=== PATIENT | female | born 1960 | race Caucasian/White ===

== ENCOUNTER → 2017-10-19 10:23 | Outpatient (CLI) | payer OTHER, SELFPAY ==
--- NOTE | 2017-10-19 10:29 | MM_ITS ---
MM Dig screening mamm BI w/CAD CAD Screening COMPARISON: Digital mammograms 05/07/2014 and 10/14/2016 INDICATION: There is a history of breast cancer in patient's mother diagnosed after menopause. TECHNIQUE: Standard CC and MLO images were obtained. R2 CAD reviewed. FINDINGS: Prominent heterogenic fibroglandular densities are seen in both breast somewhat lessening the sensitivity of mammography. Again noted is a stable benign-appearing nodular density outer quadrant of the right breast mid-breast in location. There is a benign-appearing calcification left breast. There is no suspicious lesion and there are no suspicious microcalcifications. IMPRESSION: Stable exam with no suspicious lesion seen recommend yearly follow-up BI-RADS Category: 2 Benign Finding(s) RECOMMENDED FOLLOW-UP: 1YR - 1 YEAR FOLLOW-UP (A letter has been sent to the patient regarding results of the study.)
--- NOTE | 2017-10-19 10:31 | CT_ITS ---
EXAM: CT LUNG LOW DOSE WO CONTRAST COMPARISON: None HISTORY: 57-year-old female asymptomatic with greater than 30 pack-year history ORDERING PHYSICIAN: Derrek Cevallos MD PATIENT AGE: 57 years TECHNIQUE: The exam was performed on a GE Light Speed [address] scanner using 3.95 mGy CTDI. A low dose helical CT CHEST was performed on a multi-detector scanner The LDCT was performed in a facility that meets the criteria for the screening program. Data regarding this exam was submitted to ACR which is an approved registry. The order for this exam indicates that it came as a result of a lung cancer screening counseling shard decision-making visit that included all the elements required of such a visit including smoking cessation. The radiologist interpreting this exam meets the [facility] criteria for the LDCT lung cancer screening program. The exam is reported using the Lung-RADS classification scale and reported to the ACR registry. NOTE: This study was performed for the specific purposes of lung cancer screening and is not an alternative to diagnostic chest CT. RADIATION DOSE: CTDI vol(CT dose Index-volume) = 2.95mG DLP (Dose Length Product) = 106.00 mGcm FINDINGS: There is a parenchymal opacity in the upper aspect of the right middle lobe measuring approximate 14 mm with peripheral groundglass density and may be due to an area of parenchymal fibrosis. Atelectatic or fibrotic changes are present in the right middle lobe along the fissure. Scattered calcified granulomas. Centrilobular emphysematous changes are present. No effusions or infiltrates. Normal heart size. IMPRESSION: 1. Lung RADS Category: 4A, mildly suspicious. 14 mm parenchymal opacity right upper lobe which may be due to fibrotic change. Cannot exclude developing nodule 2. Other findings: Centrilobular emphysema. Old granulomatous disease. RECOMMENDATIONS: [address] (not LDCT) without and with contrast.
== END ==
PROVIDERS: Family Provider Physician Assistant; PCP Family Medicine; Visit Provider Nurse Practitioner Obstetrics & Gynecology
DX: Z12.2 Encounter for screening for malignant neoplasm of respiratory organs (principal); Z87.891 Personal history of nicotine dependence; Z12.31 Encounter for screening mammogram for malignant neoplasm of breast
CPT/HCPCS: 77067

== ENCOUNTER → 2018-01-18 12:14 | Outpatient (CLI) | payer OTHER, SELFPAY ==
[2018-01-18 13:56] LABS: Blood Urea Nitrogen 12 mg/dL (7-18); Creatinine,Serum 0.72 mg/dL (0.55-1.02); Estimated Glomerular Filt Rate 83 ml/min (>60); GFR (African American) 101 ML/MIN (>60)
== END ==
PROVIDERS: Visit Provider Family Medicine
DX: R91.1 Solitary pulmonary nodule (principal)
CPT/HCPCS: 36415; 82565; 84520

== ENCOUNTER → 2018-01-21 09:02 | Outpatient (CLI) | payer OTHER, SELFPAY ==
--- NOTE | 2018-01-21 09:10 | CT_ITS ---
CT chest wo/w con HISTORY: Follow-up lung nodule, solitary pulmonary nodule, tobacco use, follow-up abnormal chest CT ITS.REASON: LUNG NODULE ORDERING PHYSICIAN: Mark Duarte MD PATIENT AGE: 57 years Technique: Axial images obtained. Sagittal and coronal reformatted images are also generated and reviewed. All CT scans at the facility use one or more dose reduction, viz: automated exposure control; ma/kV adjustment per patient size (including targeted exams where dose is matched to indication; i.e. head); or iterative reconstruction technique. CONTRAST: 75ml Isovue 370 I.V. COMPARISON: 10/19/2017 FINDINGS: No mediastinal or hilar mass. No evidence of aortic aneurysm or central pulmonary embolus. Normal heart size without evidence of pericardial effusion. There are few scattered small nodes within the mediastinum nonspecific and unchanged. Interlobular is edematous change with scattered areas of fibrosis are once again noted. The previously noted opacity in the right middle lobe is now less prominent with only a 4 mm nodular density noted at this region. No significant enhancement. The surrounding groundglass density has resolved. No new nodules are evident. Calcified granulomas are present in the left lower lobe. Liver margin is somewhat lobular in nature. There are some small varices noted in the left periaortic region of the upper abdomen. Developing cirrhosis is considered. IMPRESSION: 1. Decrease in size in the opacity in the right middle lobe with only a 4 mm residual nodule noted in this region. 2. Centrilobular emphysema with chronic obstructive pulmonary disease and old granulomatous disease. 3. Possible cirrhosis Recommendations: Resume screening LDCT September 2018
== END ==
PROVIDERS: Family Provider Physician Assistant; PCP Family Medicine; Visit Provider Family Medicine
DX: R91.1 Solitary pulmonary nodule (principal)
CPT/HCPCS: 71270; Q9967

== ENCOUNTER → 2018-07-25 09:24 | Outpatient (POV) | payer OTHER, SELFPAY ==
[2018-07-25 09:45] VITALS: BP 151/99; PULSE 78; RESP 18; O2SAT 95
--- NOTE | 2018-07-25 10:26 | HMH.PMCON ---
Assessment and Plan (1) Cervical pain (neck) Current visit: Yes Status: Chronic Category: Medical Code(s): M54.2 - Cervicalgia (2) Lower back pain Current visit: Yes Status: Chronic Qualifiers: Chronicity: chronic Category: Medical Code(s): M54.5 - Low back pain - Assessment and plan all Dx Assessment and Plan for all problems:: Patient states that she does not want medication from our office she is wanting to continue with Dr. Duarte. Patient states that she would like my recommendations as far as her treatment plan. I encouraged her to get some diagnostic imaging of her neck and her lumbar spine. Patient is asking us to order her a cervical MRI. I also encouraged her to do some physical therapy as well as potentially weaning off some of her chronic medications. I believe that she would be a good candidate for naloxone at this time. I discussed with the patient she is welcome to return anytime. This note was dictated using voice recognition software and may contain errors or omissions HPI - Data of Consult Consult date: 07/25/18 Requesting Physician: Eloina Aviles APRN Primary Care Provider: Mark Duarte MD - Consult Narrative Reason for consult: Continuation of narcotic medications History of present illness: Ms. Bennett is a 58 year old female who presents today for consultation. Patient states that she is here because Dr. Duarte needs permission to continue her medications. Patient is currently on a morphine equivalent of 210. Patient insurance sent a letter stating due to the her high morphine equivalent exceeding 120 morphine equivalents that she needs reassessment of her opioid therapy along with diagnosis and treatment goals. Patient also was determined to be a potential candidate for naloxone. Patient states she has been to several pain clinics in the past including Dr. Engel and Dr. Cristina. Patient states she received injections at these clinics. Patient states these do not help her. Patient states she has never been to full therapy for her lower back pain. Patient last MRI of her low back was in 2001. Patient states she is continual headaches. Patient states she was seen by a neurologist however she did not want to move forward with Botox injections. Patient states she has had pain since 1998 rating it a 5 out of 10 today. Patient has tried a chiropractor in the past. Patient's tried and failed Lortab, morphine, Topamax, gabapentin, OxyContin patient is currently on xtampza that extended release 27 mg 4 times a day and Ellinger 7.5 mg for breakthrough pain. CC: Eloina Aviles APRN [facility] History I have reviewed the patient's past medical history: Yes Medical History: Reports:: Chronic Obstructive Pulmonary Disease (COPD) Denies:: Anxiety, Depression, Hyperlipidemia, Hypertension, Seizures Other Medical History: Reports: Arthritis Laterality Cases: Bilateral: Tonsillectomy Other Surgeries: Yes: Hysterectomy-Partial Amputation: No Fractures: No - *Social History Smoking Status: Never smoker Alcohol Intake: never Alcohol Intake Frequency:: holidays/special occasions only Substance Use Type: denies use Occupational Status: employed Housing: house - Psychiatric History Expresses thoughts of harming self/others: None Suicide Plan Description: No Plan Pschychiatric History:: Denies:: Anxiety, Depression *Family Hx:: Cancer, Heart Attack Review of Systems - Review of Systems ROS General: no recent weight change, no fever, no sleep disturbances Respiratory: no cough, no shortness of air, no recurring pulmonary infections Cardiovascular/Peripheral Vascular: No chest pain, No palpitations, no edema, no shortness of breath. Gastrointestinal: no incontinence, normal bowel movements reported Genitourinary: no incontinence Musculoskeletal: Back pain, leg pain, neck pain Psychiatric: normal mood/ affect, Neurological: [denies weakness in extremit
--- NOTE | 2018-07-25 10:30 | P.CONS_ITS ---
Assessment and Plan (1) Cervical pain (neck) Current visit: Yes Status: Chronic Category: Medical Code(s): M54.2 - Cervicalgia (2) Lower back pain Current visit: Yes Status: Chronic Qualifiers: Chronicity: chronic Category: Medical Code(s): M54.5 - Low back pain - Assessment and plan all Dx Assessment and Plan for all problems:: Patient states that she does not want medication from our office she is wanting to continue with Dr. Duarte. Patient states that she would like my recommendations as far as her treatment plan. I encouraged her to get some diagnostic imaging of her neck and her lumbar spine. Patient is asking us to order her a cervical MRI. I also encouraged her to do some physical therapy as well as potentially weaning off some of her chronic medications. I believe that she would be a good candidate for naloxone at this time. I discussed with the patient she is welcome to return anytime. This note was dictated using voice recognition software and may contain errors or omissions HPI - Data of Consult Consult date: 07/25/18 Requesting Physician: Eloina Aviles APRN Primary Care Provider: Mark Duarte MD - Consult Narrative Reason for consult: Continuation of narcotic medications History of present illness: Ms. Bennett is a 58 year old female who presents today for consultation. Patient states that she is here because Dr. Duarte needs permission to continue her medications. Patient is currently on a morphine equivalent of 210. Patient insurance sent a letter stating due to the her high morphine equivalent exceeding 120 morphine equivalents that she needs reassessment of her opioid therapy along with diagnosis and treatment goals. Patient also was determined to be a potential candidate for naloxone. Patient states she has been to several pain clinics in the past including Dr. Engel and Dr. Cristina. Patient states she received injections at these clinics. Patient states these do not help her. Patient states she has never been to full therapy for her lower back pain. Patient last MRI of her low back was in 2001. Patient states she is continual headaches. Patient states she was seen by a neurologist however she did not want to move forward with Botox injections. Patient states she has had pain since 1998 rating it a 5 out of 10 today. Patient has tried a chiropractor in the past. Patient's tried and failed Lortab, morphine, Topamax, gabapentin, OxyContin patient is currently on xtampza that extended release 27 mg 4 times a day and Liberty 7.5 mg for breakthrough pain. CC: Eloina Aviles APRN [facility] History I have reviewed the patient's past medical history: Yes Medical History: Reports:: Chronic Obstructive Pulmonary Disease (COPD) Denies:: Anxiety, Depression, Hyperlipidemia, Hypertension, Seizures Other Medical History: Reports: Arthritis Laterality Cases: Bilateral: Tonsillectomy Other Surgeries: Yes: Hysterectomy-Partial Amputation: No Fractures: No - *Social History Smoking Status: Never smoker Alcohol Intake: never Alcohol Intake Frequency:: holidays/special occasions only Substance Use Type: denies use Occupational Status: employed Housing: house - Psychiatric History Expresses thoughts of harming self/others: None Suicide Plan Description: No Plan Pschychiatric History:: Denies:: Anxiety, Depression *Family Hx:: Cancer, Heart Attack Review of Systems - Review of Systems ROS General: no recent weight change, no fever, no sleep disturbances Respiratory: no cough, no shortness of air, no recurri
== END ==
PROVIDERS: PCP Family Medicine; Visit Provider Clinical Nurse Specialist Family Health
DX: M54.2 Cervicalgia (principal); M54.5 Low back pain
CPT/HCPCS: 99202

== ENCOUNTER → 2018-08-08 09:24 | Outpatient (CLI) | payer OTHER, SELFPAY ==
--- NOTE | 2018-08-08 09:28 | MR_ITS ---
MR cervical spine wo con, MR 3-d myelogram/MRCP Ordering Physician: Eloina Aviles Patient Age: 58 years: Female HISTORY: ITS.REASON: NECK PAIN Neck pain worse on the left side. Headache. Symptoms for years. TECHNIQUE: Sagittal STIR, T1, T2, axial T1 and T2. On 1.5T Siemens wide bore MRI. 3-D MR myelogram image set obtained & performed on MRI workstation. Additional sagittal thin section T2 weighted dataset obtained from this latter acquisition as well (---76 CPT) COMPARISON : No previous relevant studies. FINDINGS . Cranial cervical junction appears normal.. Facet hypertrophy arthropathy is seen throughout the C-spine evident at the upper levels. C2/3, disc intact. C3/4. Scant disc space narrowing.. Scant spondylosis. Facet hypertrophy appears fairly pronounced in at C 3/4 C4/5. Disc intact. . C5-C6 disc space narrowing. Generous posterior hypertrophic osteophytic ridging and spondylosis.. These features diffuse but slightly more evident left paracentral spurring & injury left foramen where spurring is most pronounced. Features flattening in anterior aspect towards the left and encroaches upon left foramen. Mild spinal stenosis. C6/7. Marked disc space narrowing. Cervical Spondylosis slightly less pronounced at this level than C5/6. Mild posterior hypertrophic osteophytic ridging; most evident at midline. Moderate foraminal encroachment most evident to the right. C7/T1 disc intact T1/T2. Trace 2 mm degenerative anterolisthesis of T1 and T2. Prominent degenerative facet changes most evident to the right at this level T2/T3 mild disc space narrowing with scant degenerative anterolisthesis. T3/T4 disc intact. 3-D MR myelogram image set shows spinal stenosis most pronounced at C5-C6 and to lesser degree C6/7 indentation upon the thecal sac is most evident to the left at C5/6 and rather diffuse at C6/7 IMPRESSION Degenerative disc changes & cervical spondylosis most pronounced at C5/6 followed by C6/7 C5/6. Diffuse osteophytic ridging posteriorly most evident the left. . Spinal stenosis Effaces cervical cord more so to the left,. Encroachment upon the neural foramen, left >right. C6/7.. Cervical Spondylosis with diffuse Posterior hypertrophic/ osteophytic ridging. Mild spinal stenosis. Mild/moderate foraminal encroachment Also noted Hypertrophic Degenerative facet changes throughout the C-spine.
[2018-08-08 11:00] LABS: Alanine Aminotransferase 78 U/L (12-78); Albumin Level 3.6 gm/dL (3.4-5.0); Albumin/Globulin Ratio 0.8 (1.1-1.8); Alkaline Phosphatase 106 U/L (46-116); Aspartate Amino Transferase 88 U/L (15-37); Bilirubin,Total 0.6 mg/dL (0.2-1.0); Blood Urea Nitrogen 13 mg/dL (7-18); Carbon Dioxide 29 mmol/L (21.0-32.0); Chloride 103 mmol/L (98-107); Chol/HDL Ratio 1.7 (1-3.5); Cholesterol 232 mg/dL (140-200); Creatinine,Serum 0.82 mg/dL (0.55-1.02); Estimated Glomerular Filt Rate 72 ml/min (>60); GFR (African American) 87 ML/MIN (>60); Globulin 4.3 gm/dl (1.3-3.2); Glucose 93 mg/dL (74-106); HDL Cholesterol 138 mg/dL (29-89); LDL Cholesterol 83 mg/dL (0-130); Sodium 141 mmol/L (136-145); Thyroid Stimulating Hormone 1.38 uIU/ml (0.358-3.740); Total Protein,Serum 7.9 gm/dL (6.4-8.2); Triglycerides 53 mg/dL (30-200); VLDL Cholesterol 11 mg/dL (0-40)
[2018-08-09 09:59] LABS: Vitamin D 25 Hydroxy 63.2 ng/mL (30.0-100.0)
== END ==
PROVIDERS: PCP Family Medicine; Visit Provider Clinical Nurse Specialist Family Health
DX: M54.2 Cervicalgia (principal); E78.5 Hyperlipidemia, unspecified; F41.9 Anxiety disorder, unspecified
CPT/HCPCS: 36415; 72141; 76376; 80053; 80061; 82652; 84443

== ENCOUNTER → 2018-08-15 13:10 | Outpatient (POV) | payer OTHER, SELFPAY ==
[2018-08-15 13:30] VITALS: BP 119/74; PULSE 84; RESP 18; O2SAT 98; BMI 33.8
--- NOTE | 2018-08-15 13:37 | P.CONS_ITS ---
[facility] Pain Management SOAP Note Subjective:: Patient is a pleasant 58-year-old white female who presents today for follow-up after recent MRI of her cervical spine. Patient came to our office due to her morphine equivalent of 210. However she would like to continue with Dr. Duarte prescribing her medications. Patient's her insurance sent her a letter stating that her high morphine equivalent exceeding 120 morphine equivalents she needs reassessment of her opioid therapy along with diagnosis and treatment goals. Patient was also determined a potential candidate for naloxone. Patient has been to several pain clinics in the past including Dr. Engel and Dr. Cristina. Patient and I had a long discussion in regards to her MRI which showed significant spondylosis in the cervical spine. We will start her treatment plan with her continuing her medications from her primary care provider. And her beginning with facet joint injections. If this facet joint injections do not work for her I did think she would be a candidate for neurostimulator and or potentially intrathecal therapy. I believe at this time she can continue on her medication until we get her more comfortable. Once we start decreasing her pain I believe that we can start decreasing her medication. She rates her pain a 5 out of 10 today. Patient states she has difficulty with the turning motion of her neck. ROS General: no recent weight change, no fever, no sleep disturbances Respiratory: no cough, no shortness of air, no recurring pulmonary infections Cardiovascular/Peripheral Vascular: No chest pain, No palpitations, no edema, no shortness of breath. Gastrointestinal: no incontinence, normal bowel movements reported Genitourinary: no incontinence Musculoskeletal: Neck pain, arm pain at times Psychiatric: normal mood/ affect Neurological: [denies weakness in extremities], [denies balance issues] Objective:: Physical Exam General: Alert and oriented x3, no acute distress, pleasant and cooperative, [on room air] Lungs: Resps E/U, Symmetrical chest expansion, Eyes: PERRL Musculoskeletal: Flexion and extension of cervical spine somewhat guarded secondary to pain, deep tendon reflexes normal, strength in upper and lower extremities [5/5], normal gait noted Neurological: speech clear, [employer] certified network associate equal, no gross sensory deficits Assessment:: Degenerative disc disease cervical spinal cervical spondylosis and facet arthropathy Plan:: We will schedule C5-C6 C6-C7 medial branch block/facet joint injection. I will follow-up with HER-2 weeks after her injection and reassess her symptoms patient is going to continue her medications from her primary care physician. Patient is continuing a home stretching exercise program and is also not on any anticoagulation therapy. This note was dictated using voice recognition software and may contain errors or omissions
== END ==
PROVIDERS: PCP Family Medicine; Visit Provider Clinical Nurse Specialist Family Health
DX: M50.322 Other cervical disc degeneration at C5-C6 level (principal); M47.892 Other spondylosis, cervical region; M54.02 Panniculitis affecting regions of neck and back, cervical region
CPT/HCPCS: 99213

== ENCOUNTER → 2018-09-27 10:48 | Outpatient (POV) | payer OTHER, SELFPAY ==
[2018-09-27 10:54] VITALS: BP 112/85; PULSE 76; RESP 18; O2SAT 99; BMI 18.6
--- NOTE | 2018-09-27 11:03 | HMH.PAINSOAP ---
[facility] Pain Management SOAP Note Subjective:: Patient is a pleasant 58-year-old white female who presents today for follow-up after cervical epidural steroid injection. Patient did not get any relief from her epidural injection. Patient states the majority of her pain is when she twists her neck. Patient does have positive facet loading cervical spine. Patient's MRI does show ridging spondylosis. Patient denies radiation into her arms and hands typically however she states that today she did wake up with a numb left hand however she feels that this may be due to the way that she slept on it. She rates her pain at 7 out of 10 today. Patient is continuing with her primary care in regards to her medications. Patient's not on any anticoagulation therapy. Patient continuing a home stretching program. ROS General: no recent weight change, no fever, no sleep disturbances Respiratory: no cough, no shortness of air, no recurring pulmonary infections Cardiovascular/Peripheral Vascular: No chest pain, No palpitations, no edema, no shortness of breath. Gastrointestinal: no incontinence, normal bowel movements reported Genitourinary: no incontinence Musculoskeletal: Neck pain Psychiatric: normal mood/ affect Neurological: [denies weakness in extremities], [denies balance issues] Objective:: Physical Exam General: Alert and oriented x3, no acute distress, pleasant and cooperative, [on room air] Lungs: Resps E/U, Symmetrical chest expansion, Eyes: PERRL Musculoskeletal: Flexion and extension of cervical spine somewhat guarded secondary to pain, deep tendon reflexes normal, strength in upper and lower extremities [5/5], normal gait noted, patient has a positive extension rotation test of the cervical spine Neurological: speech clear, water quality tester equal, no gross sensory deficits Assessment:: Degenerative disc disease, cervical spondylosis, cervical facet arthropathy Plan:: We will schedule a medial branch block/facet joint injection at C5-C6 C6-C7 bilaterally. Follow-up with the patient after her injection and reassess her symptoms at that time. I believe she may be a risotto me candidate. If this does not prove to be beneficial for her I do believe she may also need to discuss a neurostimulator. This note was dictated using voice recognition software and may contain errors or omissions
--- NOTE | 2018-09-27 11:07 | P.CONS_ITS ---
[facility] Pain Management SOAP Note Subjective:: Patient is a pleasant 58-year-old white female who presents today for follow-up after cervical epidural steroid injection. Patient did not get any relief from her epidural injection. Patient states the majority of her pain is when she twists her neck. Patient does have positive facet loading cervical spine. Patient's MRI does show ridging spondylosis. Patient denies radiation into her arms and hands typically however she states that today she did wake up with a numb left hand however she feels that this may be due to the way that she slept on it. She rates her pain at 7 out of 10 today. Patient is continuing with her primary care in regards to her medications. Patient's not on any anti coagulation therapy. Patient continuing a home stretching program. ROS General: no recent weight change, no fever, no sleep disturbances Respiratory: no cough, no shortness of air, no recurring pulmonary infections Cardiovascular/Peripheral Vascular: No chest pain, No palpitations, no edema, no shortness of breath. Gastrointestinal: no incontinence, normal bowel movements reported Genitourinary: no incontinence Musculoskeletal: Neck pain Psychiatric: normal mood/ affect Neurological: [denies weakness in extremities], [denies balance issues] Objective:: Physical Exam General: Alert and oriented x3, no acute distress, pleasant and cooperative, [on room air] Lungs: Resps E/U, Symmetrical chest expansion, Eyes: PERRL Musculoskeletal: Flexion and extension of cervical spine somewhat guarded secondary to pain, deep tendon reflexes normal, strength in upper and lower extremities [5/5], normal gait noted, patient has a positive extension rotation test of the cervical spine Neurological: speech clear, architect intern equal, no gross sensory deficits Assessment:: Degenerative disc disease, cervical spondylosis, cervical facet arthropathy Plan:: We will schedule a medial branch block/facet joint injection at C5-C6 C6-C7 bilaterally. Follow-up with the patient after her injection and reassess her s ymptoms at that time. I believe she may be a risotto me candidate. If this does not prove to be beneficial for her I do believe she may also need to discuss a neurostimulator. This note was dictated using voice recognition software and may contain errors or omissions
== END ==
PROVIDERS: PCP Family Medicine; Visit Provider Clinical Nurse Specialist Family Health
DX: M47.892 Other spondylosis, cervical region (principal); M54.02 Panniculitis affecting regions of neck and back, cervical region
CPT/HCPCS: 99213

== ENCOUNTER → 2018-11-14 10:43 | Outpatient (POV) | payer OTHER, SELFPAY ==
[2018-11-14 10:54] VITALS: BP 114/82; PULSE 83; RESP 18; O2SAT 98; BMI 18.6
--- NOTE | 2018-11-14 11:24 | HMH.PAINSOAP ---
[facility] Pain Management SOAP Note Subjective:: Patient is a 58-year-old white female who presents today for follow-up after medial branch block. Patient states she got about 50% relief however it did not last. She was set up by Dr. Khan with Dr. Thorne however she canceled the appointment stating that a friend at [facility] told her to try chiropractor first. Patient's been to 6 sessions with the chiropractor with no relief of her symptoms. Patient has tingling in her fingers on her right hand. She is interested in seeing the hand surgeon to see if she needs hardware removed from her wrist. Patient is concerned about her medications at this time. Patient states that Dr. Duarte did not receive her first consultation note. We will resend this. She rates her pain a 6 out of 10. Patient states she is not really interested in any other options that I have given her including neuro stimulation. I encouraged her to make the appointment with Dr. Thorne if she does not have any relief of her symptoms from the removal of the hardware in her wrist. At this point there is nothing more we can offer her. ROS General: no recent weight change, no fever, no sleep disturbances Respiratory: no cough, no shortness of air, no recurring pulmonary infections Cardiovascular/Peripheral Vascular: No chest pain, No palpitations, no edema, no shortness of breath. Gastrointestinal: no incontinence, normal bowel movements reported Genitourinary: no incontinence Musculoskeletal: Neck pain, back pain Psychiatric: normal mood/ affect Neurological: [denies weakness in extremities], [denies balance issues] Objective:: Physical Exam General: Alert and oriented x3, no acute distress, pleasant and cooperative, [on room air] Lungs: Resps E/U, Symmetrical chest expansion, Eyes: PERRL Musculoskeletal: Flexion and extension of cervical spine somewhat guarded secondary to pain, deep tendon reflexes normal, strength in upper and lower extremities [5/5], slightly antalgic gait noted Neurological: speech clear, tag meter operator equal, no gross sensory deficits Assessment:: Degenerative disc disease cervical spine with cervical spondylosis and facet arthropathy Plan:: I discussed with her several times about implantable therapies. She is uninterested. Patient will be returning to her primary care for medication management. Patient canceled her appointment with Dr. Thorne which I encouraged her to remain in order for an evaluation. Dr. Khan has reviewed this note and agrees with this plan of care. This note was dictated using voice recognition software and may contain errors or omissions
--- NOTE | 2018-11-14 11:27 | P.CONS_ITS ---
[facility] Pain Management SOAP Note Subjective:: Patient is a 58-year-old white female who presents today for follow-up after medial branch block. Patient states she got about 50% relief however it did not last. She was set up by Dr. Khan with Dr. Thorne however she canceled the appointment stating that a friend at [facility] told her to try chiropractor first. Patient's been to 6 sessions with the chiropractor with no relief of her symptoms. Patient has tingling in her fingers on her right hand. She is interested in seeing the hand surgeon to see if she needs hardware removed from her wrist. Patient is concerned about her medications at this time. Patient states that Dr. Duarte did not receive her first consultation note. We will resend this. She rates her pain a 6 out of 10. Patient states she is not really interested in any other options that I have given her including neuro stimulation. I encouraged her to make the appointment with Dr. Thorne if she does not have any relief of her symptoms from the removal of the hardware in her wrist. At this point there is nothing more we can offer her. ROS General: no recent weight change, no fever, no sleep disturbances Respiratory: no cough, no shortness of air, no recurring pulmonary infections Cardiovascular/Peripheral Vascular: No chest pain, No palpitations, no edema, no shortness of breath. Gastrointestinal: no incontinence, normal bowel movements reported Genitourinary: no incontinence Musculoskeletal: Neck pain, back pain Psychiatric: normal mood/ affect Neurological: [denies weakness in extremities], [denies balance issues] Objective:: Physical Exam General: Alert and oriented x3, no acute distress, pleasant and cooperative, [on room air] Lungs: Resps E/U, Symmetrical chest expansion, Eyes: PERRL Musculoskeletal: Flexion and extension of cervical spine somewhat guarded secondary to pain, deep tendon reflexes normal, strength in upper and lower extremities [5/5], slightly antalgic gait noted Neurological: speech clear, director of training equal, no gross sensory deficits Assessment:: Degenerative disc disease cervical spine with cervical spondylosis and facet arthropathy Plan:: I discussed with her several times about implantable therapies. She is uninterested. Patient will be returning to her primary care for medication management. Patient canceled her appointment with Dr. Thorne which I encouraged her to remain in order for an evaluation. Dr. Khan has reviewed this note and agrees with this plan of care. This note was dictated using voice recognition software and may contain errors or omissions
== END ==
PROVIDERS: PCP Family Medicine; Visit Provider Clinical Nurse Specialist Family Health
DX: M50.30 Other cervical disc degeneration, unspecified cervical region (principal); M54.02 Panniculitis affecting regions of neck and back, cervical region; M47.892 Other spondylosis, cervical region
CPT/HCPCS: 99213

== ENCOUNTER → 2019-01-16 10:20 | Outpatient (CLI) | payer OTHER, SELFPAY ==
--- NOTE | 2019-01-16 10:21 | MM_ITS ---
MM Dig screening mamm BI w/CAD ORDERING PHYSICIAN : Derrek Cevallos MD PATIENT AGE: 58 years GENDER: Female COMPARISON: April 2013, 2013, September 2016 & 2017 bilateral breast ultrasound May 2014. INDICATION: . Routine Screening Mammogram at the 8-year-old no hormones. No new complaints. Family history.: Mother with breast cancer postmenopausal TECHNIQUE: Standard CC and MLO images were obtained. R2 CAD reviewed. Additional axillary cc view both breast included FINDINGS: Fairly dense heterogeneous breast. Decreased sensitivity mammography but we see no discrete or dominant mass or new findings. Mammography is limited and of decreased sensitivity in breast of this character and would encourage self breast examination to compliment mammography. Ultrasound can also be useful compliment to mammography in breast of this character particularly when any palpable areas are encountered. . RIGHT BREAST:No discrete new areas significant concern. Again the heterogeneous pattern noted and similar to previous studies. LEFT BREAST:No discrete new area of significant concern The fairly dense heterogeneous pattern shows no definitive change since prior studies. I would encourage and emphasized bilateral follow-up mammogram in one year along with self breast examination Ultrasound can be useful compliment to mammography in breast of this heterogeneous character and increased density. Consider such with next year is follow-up screening or if any palpable areas arise. I would note that there was a bilateral ultrasound May 2014 which showed fibrocystic changes bilaterally IMPRESSION: ......... No new areas of significant concern. . Bilateral follow-up in one year recommended and should be encouraged. . Self breast examination would be encouraged Very heterogeneous moderately dense breast bilaterally. No definitive or suspicious change since previous study. Ultrasound can be useful compliment/augment to mammography screening in breast of this heterogeneous moderately dense character of particular if any palpable areas arise. BI-RADS Category: 2 Benign Finding(s) RECOMMENDED FOLLOW-UP: 1YR 1 YEAR FOLLOW-UP (A letter has been sent to the patient regarding results of the study.)
== END ==
PROVIDERS: PCP Family Medicine; Visit Provider Nurse Practitioner Obstetrics & Gynecology
DX: Z12.31 Encounter for screening mammogram for malignant neoplasm of breast (principal)
CPT/HCPCS: 77067

== ENCOUNTER → 2019-07-05 12:39 | Outpatient (CLI) | payer OTHER, SELFPAY ==
[2019-07-05 13:48] LABS: Alanine Aminotransferase 36 U/L (12-78); Albumin Level 3.6 gm/dL (3.4-5.0); Albumin/Globulin Ratio 0.9 (1.1-1.8); Alkaline Phosphatase 119 U/L (46-116); Anion Gap 14.8 mEq/L (5-15); Aspartate Amino Transferase 52 U/L (15-37); Bilirubin,Total 0.7 mg/dL (0.2-1.0); Blood Urea Nitrogen 10 mg/dL (7-18); Calcium 9.1 mg/dL (8.5-10.1); Carbon Dioxide 27 mmol/L (21.0-32.0); Chloride 101 mmol/L (98-107); Chol/HDL Ratio 1.9 (1-3.5); Cholesterol 215 mg/dL (140-200); Creatinine,Serum 0.73 mg/dL (0.55-1.02); Estimated Glomerular Filt Rate 82 ml/min (>60); GFR (African American) 99 ML/MIN (>60); Globulin 3.8 gm/dl (1.3-3.2); Glucose 95 mg/dL (74-106); HDL Cholesterol 111 mg/dL (29-89); LDL Cholesterol 95 mg/dL (0-130); Potassium 3.8 mmoL/L (3.5-5.1); Sodium 139 mmol/L (136-145); Total Protein,Serum 7.4 gm/dL (6.4-8.2); Triglycerides 45 mg/dL (30-200); Uric Acid 4.7 mg/dL (2.6-7.2); VLDL Cholesterol 9 mg/dL (0-40)
== END ==
PROVIDERS: Visit Provider Family Medicine
DX: M25.571 Pain in right ankle and joints of right foot (principal); M54.2 Cervicalgia; G89.4 Chronic pain syndrome
CPT/HCPCS: 36415; 80053; 80061; 84550

== ENCOUNTER → 2019-07-13 12:36 | Outpatient (CLI) | payer OTHER, SELFPAY ==
--- NOTE | 2019-07-13 12:38 | CT_ITS ---
PROCEDURE: CT LUNG SCREENING CLINICAL INDICATION: CURRENT TOBACOO USE Forty pack-year smoking history, asymptomatic for lung cancer COMPARISON: CHESTWW CT chest wo/w con from 01/21/2018 TECHNIQUE: The exam was performed on a GE Fot[employer] Speed [address] scanner using 2.90 mGy CTDI. A low dose helical CT CHEST was performed on a multi-detector scanner. All CT scans at the facility use one or more dose reduction, viz: automated exposure control, ma/kV adjustment per patient size (including targeted exams where dose is matched to indication, i.e. head), or iterative reconstruction technique. The LDCT was performed in a facility that meets the criteria for the screening program. Data regarding this exam was submitted to ACR which is an approved registry. The order for this exam indicates that it came as a result of a lung cancer screening counseling shard decision-making visit that included all the elements required of such a visit including smoking cessation. The radiologist interpreting this exam meets the CMS criteria for the LDCT lung cancer screening program. The exam is reported using the Lung-RADS classification scale and reported to the ACR registry. NOTE: This study was performed for the specific purposes of lung cancer screening and is not an alternative to diagnostic chest CT. RADIATION DOSE: CTDI vol(CT dose Index-volume) = 2.90mG DLP (Dose Length Product) = 114.90 mGcm FINDINGS: COPD with centrilobular and scattered areas of scarring the. Old granulomatous disease. The no suspicious nodules with no significant change. There is a stable 4 mm nodule in the right apex and stable granulomas in the left lower lobe the OTHER FINDINGS: No other pertinent findings evident. 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
== END ==
PROVIDERS: PCP Family Medicine; Visit Provider Family Medicine
DX: Z87.891 Personal history of nicotine dependence (principal); Z12.2 Encounter for screening for malignant neoplasm of respiratory organs

== ENCOUNTER → 2019-12-21 12:34 | Outpatient (CLI) | payer OTHER, SELFPAY ==
--- NOTE | 2019-12-21 | ECG_ITS ---
APPROVED REPORT Exam: Resting ECG HR:51 bpm ECG Measurements Heart Rate 51 AXES SD 140 P 77 QRSd 86 QRS 83 QT 450 T 72 QTc 414 <Conclusion> Sinus bradycardia St/tw abnormallity - unchanged from prior Abnormal ECG Electronically signed by : Blake Childs, 12/23/2019 13:54:28
[2019-12-21 13:03] LABS: Basophils # 0.1 K/mm3 (0-0.2); Basophils % 1.6 % (0.1-2.0); Eosinophils # 0.4 K/mm3 (0.0-0.4); Eosinophils % 7.7 % (0.1-12.0); Hematocrit 43.4 % (37.0-47.0); Hemoglobin 13.5 g/dL (12.2-16.2); Lymphocytes # 1.5 K/mm3 (0.7-4.5); Lymphocytes % 27.8 % (10-50); Mean Corpuscular HGB Conc 31.1 g/dL (31.8-35.4); Mean Corpuscular Hemoglobin 30.2 pg (27.0-31.2); Mean Corpuscular Volume 97.3 fl (81-99); Mean Platelet Volume 8.5 fl (7.4-10.4); Monocytes # 0.5 K/mm3 (0.1-1.0); Neutrophils # 2.9 K/mm3 (1.8-7.8); Neutrophils % 53.9 % (37.0-80.0); Platelet Count 365 K/mm3 (142-424); Red Blood Count 4.46 M/mm3 (4.20-5.40); Red Cell Distribution Width 13.2 % (11.5-17.5); White Blood Count 5.4 K/mm3 (4.8-10.8)
[2019-12-21 14:09] LABS: Chloride 104 mmol/L (98-107); Potassium 4.2 mmoL/L (3.5-5.1); Sodium 139 mmol/L (136-145)
[2019-12-21 14:12] LABS: Anion Gap 12.2 mEq/L (5-15); Blood Urea Nitrogen 12 mg/dl (7-17); Calcium 9.8 mg/dl (8.4-10.2); Carbon Dioxide 27 mmol/L (22.0-30.0); Estimated Glomerular Filt Rate 73 ml/min (>60); GFR (African American) 89 ML/MIN (>60); Glucose 84 mg/dl (74-100)
== END ==
PROVIDERS: Visit Provider Otolaryngology
DX: Z01.818 Encounter for other preprocedural examination (principal); D49.0 Neoplasm of unspecified behavior of digestive system; D37.02 Neoplasm of uncertain behavior of tongue
CPT/HCPCS: 36415; 80048; 85025; 93005

== ENCOUNTER 2019-12-28 07:09 | Day surgery (SDC) | payer OTHER, SELFPAY ==
[2019-12-26 10:34] VITALS: BMI 19.0
[2019-12-28] VITALS (10 sets, daily range): BP systolic 112–135; BP diastolic 73–92; PULSE 60–88; RESP 16–20; TEMP 36.4–36.9; O2SAT 90–97
--- NOTE | 2019-12-28 08:35 | P.PN_ITS ---
[facility] Anesthesia Checklist - Patient Identification Patient Identification: Arm Band - Structural Data Admitted From: Home Planned Operative Procedure/s: microlaryngoscopy, removal of lump on base of tongue Consent for Planned Operative Procedure(s) Verified: Yes Verified Documents: Surgical Consent, History and Physical - NPO Status Verified Time NPO: 00:00 - Additional verifications Anesthesia Reactions: No Hx Blood Transfusions: No - Airway Assessment C-Spine Mobility Assessed: Yes (mp2) TMJ Mobility Assessed: Yes Dentition: Good Dentition - Neurological Assessment Level of Consciousness: Awake, Alert - Anesthesia Plan Anesthesia Risk discussed: Yes Anesthesia Plan: Verified ASA Class: III Anesthesia Type: General [facility] History I have reviewed the patient's past medical history: Yes Medical History: Reports:: Chronic Obstructive Pulmonary Disease (COPD), Gastroesophageal Reflux Disease(GERD) Denies:: Anxiety, Cancer, Depression, Diabetes Mellitus Type 1, Diabetes Mellitus Type 2, Hyperlipidemia, Hypertension, MRSA, Seizures *Have you ever received a pneumonia vaccine?: Yes *Have you received a flu vaccine this season?: Yes Other Medical History: Reports: Arthritis Anesthesia experience/problems:: nac Laterality Cases: Bilateral: Myringotomy (Ear Tubes), Tonsillectomy Other Surgeries: Yes: Hysterectomy-Partial, Other Amputation: No Fractures: Yes (r foot, chanel wrist, toes) - *Social History Educational Level: Completed High School Smoking Status: Former smoker Alcohol Intake: never Alcohol Intake Frequency:: holidays/special occasions only Substance Use Type: denies use *Occupational Status:: unemployed Housing: house Household Members: spouse *Travel in the last 8 weeks: Inside the [place] - Psychiatric History Pschychiatric History:: Denies:: Anxiety, Depression Family Hx:: Cancer, Heart Attack
--- NOTE | 2019-12-28 10:04 | P.PN_ITS ---
[facility] Anesthesia Record Part I Intake, IV Amount: 900 Estimated blood loss (mL): 2 Urine output (mL): 0 (NM) Blood Products used (#): none Blood Pressure: 133/92 SaO2: 95 Pulse Rate: 76 Respiratory Rate: 16 Temperature: 97.6 F Patient is:: Awake, Stable Stable to PACU at:: 09:58
--- NOTE | 2019-12-28 10:18 | PC.NURSE ---
0913-pt eating ice chips w/out difficulty
--- NOTE | 2019-12-28 10:26 | PC.NURSE ---
1026-detailed report given at bedside to CAMILA Curiel at this time 1028-pt transferred to post op at this time and left in care of CAMILA Curiel, bed locked in lowest position, vss, pt stable.
--- NOTE | 2019-12-28 11:42 | P.OP_ITS ---
Date of procedure: 12/28/19 Pre-op Diagnosis:: Lesion right base of tongue/vallecula Post-op Diagnosis:: Same Procedure performed:: Microlaryngoscopy with removal of lesion right base of tongue/vallecula Surgeon:: Clay Fang MD ELECTRIC MOTOR WINDERS ASSEMBLER:: Luke Thao Anesthesia: GETA Estimated blood loss (mL): 1 Operative findings:: same Operative note:: Using the SlimLine laryngoscope and telescope the oral cavity hypopharynx and larynx were examined. There was a lesion measuring at least 1 cm in the right side of the vallecula, a photograph was taken. Using the cup forceps the lesion was removed in entirety and submitted. Bleeding was stopped with cottonoids and topical epinephrine. Blood loss was less than 1 cc. Patient tolerated the procedure well and was sent to recovery in good general condition. Condition: stable Disposition: PACU Complications:: none
--- NOTE | 2019-12-28 12:08 | HMH.ANESII ---
[facility] Anesthesia Record Part II Discharge Time: 11:01 Destination: Home PACU nurse assessment reviewed?: Yes Patient Condition:: Good Anesthesia Complications:: None Swallowing reflex intact?: Yes Cyanosis?: No Blood Pressure: 125/85 Pulse Rate: 63 Temperature: 97.8 F Mental Status: Alert & Oriented Pain level:: 0 Nausea and/or vomitting:: None Intake, IV Amount: 0
== END 2019-12-28 11:01 | disposition home or self-care (01) ==
LOC: OR 07:10
PROVIDERS: PCP Family Medicine; Visit Provider Otolaryngology
PROC: 0CJS8ZZ Inspection of Larynx, Via Natural or Artificial Opening Endoscopic (ICD-10-PCS; CPT 31536; principal; 2019-12-28 08:45)
DX: D10.1 Benign neoplasm of tongue (principal); Z79.890 Hormone replacement therapy; Z79.51 Long term (current) use of inhaled steroids; Z79.899 Other long term (current) drug therapy; J44.9 Chronic obstructive pulmonary disease, unspecified; M19.90 Unspecified osteoarthritis, unspecified site; Z90.89 Acquired absence of other organs; Z90.711 Acquired absence of uterus with remaining cervical stump; Z87.39 Personal history of other diseases of the musculoskeletal system and connective tissue
CPT/HCPCS: 31536; 96374; 96375

== ENCOUNTER → 2020-01-19 10:46 | Outpatient (CLI) | payer OTHER, SELFPAY ==
--- NOTE | 2020-01-19 10:51 | XR_ITS ---
PROCEDURE: XR DEXA AXIAL SKELETON CLINICAL HISTORY: OSTEOPOROSIS COMPARISON: No exams were available for comparison FINDINGS: Total proximal right femur density is 0.651 grams/centimeters sq with a T-score of -2.4 consistent with osteopenia. Total proximal left femur density is 0.665 grams/centimeter sq with a T-score -2.3 consistent with osteopenia. L1-L4 density is 1.127 grams/centimeters sq with a T-score of 0.7. IMPRESSION: Osteopenia with moderate fracture risk. Treatment advised. Suggest follow-up exam in 2 years Dictated by: Adarsh Edmondson MD 01/19/2020 11:13 Electronically signed by Adarsh Edmondson MD in [place] 01/19/2020 11:13
== END ==
PROVIDERS: PCP Family Medicine; Visit Provider Family Medicine
DX: Z13.820 Encounter for screening for osteoporosis (principal)
CPT/HCPCS: 77080

== ENCOUNTER → 2020-03-12 10:22 | Outpatient (CLI) | payer OTHER, SELFPAY ==
--- NOTE | 2020-03-12 10:22 | MM_ITS ---
PROCEDURE: MM DIG SCREENING MAMM BI W/CAD Digital Breast Tomosynthesis Included CLINICAL INDICATION: screening xmg There is a history of breast cancer patient's mother diagnosed at age 70. COMPARISON: [facility] DIG MAMM-SCREEN RANI W/CAD from 10/14/2016 [facility] MM Dig screening mamm BI w/CAD from 10/19/2017 [facility] MM Dig screening mamm BI w/CAD from 01/16/2019 TECHNIQUE: Standard CC and MLO images and 3D Tomosynthesis was obtained. R2 CAD reviewed. FINDINGS: Moderate diffuse heterogenic fibroglandular densities are seen throughout both breasts. The findings of bilateral and symmetrical. There is a benign-appearing calcification in each breast. Anshu images are most helpful in this type of dense breast parenchyma. There is no new or suspicious lesion in either breast and no suspicious microcalcifications. IMPRESSION: Moderately dense and heterogenic parenchymal pattern with no suspicious lesions seen BI-RAD Category: 2 Benign Finding(s) FOLLOW-UP: 1YR 1 Year Follow-up (A letter has been sent to the patient regarding results of the study.) Dictated by: Dr. Tyson Richardson MD 03/14/2020 07:[address] Tyson Richardson MD in [place] 03/14/2020 07:16
== END ==
PROVIDERS: PCP Family Medicine; Visit Provider Nurse Practitioner Obstetrics & Gynecology
DX: Z12.31 Encounter for screening mammogram for malignant neoplasm of breast (principal)
CPT/HCPCS: 77063; 77067

== ENCOUNTER 2020-04-11 11:00 | Outpatient (RCR) | payer OTHER, SELFPAY ==
--- NOTE | 2020-03-25 14:18 | HMH.PTOPEV ---
PT Outpatient Evaluation Rehab PT Outpatient Evaluation Start: 03/25/20 13:12 Freq: Status: Active Protocol: Document 03/25/20 14:11 TERESE (Rec: 03/25/20 14:18 PHORNE [id number]) Electronically Signed By Miguel Baker, PT 03/25/20 14:11 Outpatient Therapy Subjective History Subjective History Pt is 59 yowf who presents with c/o worsened neck pain x ~ 1 mos with hx of chronic neck pain for many years. She reports sudden insidious onset of increased pain, but this has decreased with muscle relaxers and steroids prescribed by MD. She reports no numbness in the arms and less pain without movement. She reports PMH of COPD, DDD, osteopenia. Chief Complaint Pain,Stiff Symptom Type Sharp Symptoms Relieved By Rest/Positioning Symptoms Aggravated By Physical Activity,Twisting Prior Functional Limitations None Current Functional Limitations Driving,Recreation Activity Symptom Description Constant but Variable Level of pain today (0-10) 5 Pain scale - at its worst (0-10) 8 Cervical Eval Palpation Cervical Muscles R Cervical Paraspinal,L Cervical Paraspinal,R Upper Trapezius,L Upper Trapezius Cervical/Thoracic Palpation Findings Tenderness Flexibility Deficits Upper Trapezius Muscle Length (R) Moderate Tightness,(L) Moderate Tightness Levaetor Scapulae Muscle Length (R) Moderate Tightness,(L) Moderate Tightness Scalene Group Muscle Length (R) Mild Tightness,(L) Mild Tightness Passive Joint Mobility Cervical PIVM Dec: R C2/3 L C2/3 R C3/4 L C3/4 R C4/5 L C4/5 R C5/6 L C5/6 R C6/7 L C6/7 R C7/T1 L C7/T1 WNL: R OA L OA R AA L AA AROM Cervical Spine Extension Active Range of 0-30 Motion (degrees) Cervical Spine Flexion Active Range
== END 2020-04-11 11:05 | disposition home or self-care (01) ==
LOC: PT 11:00
PROVIDERS: PCP Family Medicine; Visit Provider Family Medicine
DX: M54.2 Cervicalgia (principal)
CPT/HCPCS: 97010; 97012; 97014; 97035; 97110; 97140; 97163; G0283

== ENCOUNTER 2020-06-04 14:00 | Outpatient (RCR) | payer OTHER, SELFPAY ==
--- NOTE | 2020-04-19 13:30 | HMH.PTOPEV ---
PT Outpatient Evaluation Rehab PT Outpatient Evaluation Start: 04/19/20 13:23 Freq: Status: Active Protocol: Document 04/19/20 13:23 DENISE (Rec: 04/19/20 13:30 DENISE [id number]) Electronically Signed By Franky Kahn, PT 04/19/20 13:23 Outpatient Therapy Subjective History Subjective History Pt reports h/o chronic LBP for years w/ most recent exacerbation over the last ~30 days. Pt reports insidious onset LBP, R>L sided pain, no radicular s/s, and has increased significantly since 'helping a friend move this week'. Pt reports previous imaging of lumbar spine has revealed DDD, and past sx. of microdiscectomy in '03 lumbar spine region. Chief Complaint Pain,Stiff,Weakness Symptom Type Ache,Sharp,Dull Symptoms Relieved By Rest/Positioning,Heat,Ice Symptoms Aggravated By Prone,Twisting,Lifting Prior Functional Limitations Lifting,Housework Current Functional Limitations Lifting,Housework,Bending/ Stooping Symptom Description Constant but Variable Level of pain today (0-10) 4 Pain scale - at its best (0-10) 4 Pain scale - at its worst (0-10) 8 Lumbopelvic Eval Posture Thoracic Spine Posture Standing Position Flattened Lumbar Spine Posture Standing Position Flattened Assistive device Assistive Devices None / NA Gait Observation General Gait Pattern Observation Antalgic Gait Palapation tenderness bilateral lumbar spinal tenderness Yes: 3/4 paraspinal tenderness Yes: 3/4 buttock tenderness Yes: 1/4 Lumbar/Sacral Palpation Findings Tenderness,Trigger Point, Muscle Guarding Accessory Movement L-spine Vertebrae Accessory Movements Central P/A [place] that Elicit Symptoms L2 bilateral L3 bilateral L4 bilateral L5 bilateral Range of Motion Lumbar Spine Active Flexion Range of 0-40 Motion (degrees) Lumbar Spine Active Extension Range of 0-10 Motion (degrees) Left Lumbar Spine Lateral Flexion Active 0-15 Range of Motion (degrees) Right Lumbar Spine Lateral Flexion 0-15 Active Range of Motion (degrees) Lumbar Spine ROM Limitations Pain Manual Muscle Test Bilateral Knee Extension Strength Grade 4- Good- Knee Flexion Strength Grade 5 Normal Hip Flexion Strength Grade 4-
--- NOTE | 2020-05-23 10:39 | HMH.RHREAS ---
Rehab Reassessment Rehab OP Re-assessment Start: 05/23/20 10:28 Freq: Status: Active Protocol: Document 05/23/20 10:28 DENISE (Rec: 05/23/20 10:39 DENISE [id number]) Electronically Signed By Franky Kahn, PT 05/23/20 10:28 Rehab Re-assessment Subjective Subjective PT REPORTS 6-7/10 LBP ON VAS ' DEPENDING ON ACTIVITY', AND FEELS 60-70% BETTER OVERALL SINCE I EVAL. 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 Objective Objective Notes AROM: L-SPINE FLX 0-45, EXT 0- 10, B SB 0-20 MMT: B KNEE EXT 4/5, B HIP FLX 4-4+/5 TTP: B LUMBAR PARA 2/4, B PIRI 1-2/4 Assessment Progress Assessment Progressing as Expected Assessment Notes PT W/SLIGHT IMPROVEMENT IN AROM, STRENGTH, AND TTP Patient goals met STG'S 01/25 LTG'S 10/28 Goals Not Met STG'S 11/25, LTG'S 02/25 Plan Plan PT TO CONT. W/SKILLED P.T. TO MAKE FURTHER IMPROVEMENTS IN AROM, STRENGTH, AND TTP TO ALLOW FOR OPTIMAL FUNCTION Frequency of Therapy 1-2X/WK Duration of therapy 3-4WKS Time and Billing Re-Eval Time 15 Re-Eval Billing Units 1 PHYSICIAN CERTIFICATION: I certify the specified therapy services for Katt Bennett are required, authorized, and reviewed every 30 days.
== END 2020-06-04 14:57 | disposition home or self-care (01) ==
LOC: PT 14:00
PROVIDERS: PCP Family Medicine; Visit Provider Family Medicine
DX: M54.5 Low back pain (principal)
CPT/HCPCS: 20560; 20561; 97010; 97014; 97035; 97110; 97140; 97163; 97164; G0283

== ENCOUNTER → 2020-06-24 10:57 | Outpatient (CLI) | payer OTHER, SELFPAY ==
[2020-06-24 12:36] LABS: Coronavirus 19 IgG Antibody Negative (Negative); Coronavirus 19 IgM Antibody Negative (Negative)
== END ==
PROVIDERS: Visit Provider Surgery
DX: Z03.818 Encounter for observation for suspected exposure to other biological agents ruled out (principal)
CPT/HCPCS: 36415; 86328

== ENCOUNTER 2020-06-25 07:15 | Day surgery (SDC) | payer OTHER, SELFPAY ==
[2020-06-21 10:39] VITALS: BMI 19.0
[2020-06-25 07:29] VITALS: BP 140/84; PULSE 84; RESP 16; TEMP 37.1; O2SAT 95
--- NOTE | 2020-06-25 07:53 | HMH.ANESCL ---
[facility] Anesthesia Checklist - Patient Identification Patient Identification: Arm Band, Verbal (Name & ) - Structural Data Admitted From: Home Planned Operative Procedure/s: Colonoscopy Consent for Planned Operative Procedure(s) Verified: Yes Verified Documents: Surgical Consent, History and Physical - NPO Status Verified Time NPO: 00:00 - Chart Verification Results Verified: None - Additional verifications Patient : No Anesthesia Reactions: No Hx Blood Transfusions: No - Airway Assessment C-Spine Mobility Assessed: Yes TMJ Mobility Assessed: Yes Dentition: Good Dentition - Neurological Assessment Level of Consciousness: Awake, Alert, Appropriate, Follows Commands Hx Seizures: No Numbness or tingling in extremities: No - Anesthesia Plan Anesthesia Risk discussed: Yes Anesthesia Plan: Verified ASA Class: III Anesthesia Type: MAC [facility] History I have reviewed the patient's past medical history: Yes Medical History: Reports:: Chronic Obstructive Pulmonary Disease (COPD), Gastroesophageal Reflux Disease(GERD), Migraine Denies:: Anxiety, Cancer, Depression, Diabetes Mellitus Type 1, Diabetes Mellitus Type 2, Hyperlipidemia, Hypertension, Internal Pacemaker, MRSA, Seizures *Have you ever received a pneumonia vaccine?: Yes *Have you received a flu vaccine this season?: Yes Other Medical History: Reports: Arthritis Comment:: chronic back pain Anesthesia experience/problems:: No prior complications Laterality Cases: Bilateral: Myringotomy (Ear Tubes), Tonsillectomy Other Surgeries: Yes: Colonoscopy, Hysterectomy-Partial, Other. No: Pacemaker Amputation: No Fractures: Yes (r foot, chanel wrist, toes) - *Social History Last grade of school completed: High school graduate Smoking Status: Former smoker (quit 2 years ago) Alcohol Intake: never Alcohol Intake Frequency:: holidays/special occasions only Substance Use Type: denies use *Occupational Status:: unemployed Housing: house Household Members: spouse *Travel in the last 8 weeks: None - Psychiatric History Pschychiatric History:: Denies:: Anxiety, Depression Family Hx:: Cancer, Heart Attack
[2020-06-25 08:45] VITALS: BP 103/62; PULSE 69; RESP 18; TEMP 36.8; O2SAT 96
[2020-06-25 08:50] VITALS: BP 116/65; PULSE 66; RESP 18; O2SAT 98
--- NOTE | 2020-06-25 08:50 | HMH.SCOPE ---
- Procedure: Date: 06/25/20 Patient Date of :: 1960 Procedure Performed:: Total colonoscopy with polypectomy by snare and biopsy forceps Indications:: Patient is a 59-year-old white female seen in consultation for rectal problem . I had performed screening colonoscopy on her in June 2011 which was unremarkable. She describes about a 6-month history of some rectal bleeding characterized by bright red blood on the toilet paper. She is also had some itching and discomfort. She has used some [id number] hemorrhoid wipes and yjap-wdb-xfzgilk cream. She does have some problems with chronic constipation secondary to chronic pain medications. She takes MiraLAX and Metamucil. On examination in the office there were no obvious etiology for bleeding such as hemorrhoids or fissures. Plan was made to proceed with colonoscopy. Performing Provider:: Jae Amaya MD Referring Provider:: Coy Duarte MD Sedation:: Propofol Procedure:: Patient was taken to endoscopy procedure room. She was positioned in a lateral decubitus position. Adequate intravenous sedation was achieved with anesthesia titration of propofol. Digital examination was performed which was unremarkable. Variable stiffness Olympus colonoscope was inserted via the anus. With some difficulty due to some floppiness and atony of the colon it was ultimately advanced to the cecum. Ileocecal valve and appendiceal orifice were identified. Colonic preparation was fair, particularly the right colon, with particulate liquid stool and some stool coating the ross of the colon. Irrigation was performed which allowed for some decent visualization. There is a possible diminutive polyp in the cecum removed with cold biopsy forceps. Colonoscope was withdrawn through the colon with careful surveillance. There was a proximal rectal polyp which appeared hyperplastic removed with cold cutting snare. There is a distal rectal polyp measuring about 8 to 10 mm adenomatous appearing removed with cold cutting snare. There was a rectosigmoid hyperplastic appearing polyp removed with cold biopsy forceps. Retroflexion within the rectum revealed no evidence of any appreciably pathological bleeding internal hemorrhoids. Colonoscope was withdrawn. Findings:: Fair colonic preparation Somewhat floppy colon Diminutive cecal polyp removed with biopsy forceps 8 to 10 mm adenomatous appearing distal rectal polyp removed with cold cutting snare Proximal rectal polyp removed with cold cutting snare, hyperplastic appearing Rectosigmoid polyp removed with cold biopsy forceps, hyperplastic appearing Recommendations:: Source of bleeding potentially distal rectal polyp. No other significant pathology noted. Patient may be prone to constipation. Recommend bowel regimen. Likely repeat colonoscopy 1 to 2 years given the polyps and suboptimal preparation. Complications:: None immediately apparent Estimated blood obtained (mL): 2
[2020-06-25 09:00] VITALS: BP 115/71; PULSE 68; RESP 18; O2SAT 100
[2020-06-25 09:16] VITALS: BP 110/72; PULSE 83; RESP 18; O2SAT 100
== END 2020-06-25 09:18 | disposition home or self-care (01) ==
LOC: OUTP 07:16
PROVIDERS: PCP Family Medicine; Visit Provider Surgery
PROC: 0DJD8ZZ Inspection of Lower Intestinal Tract, Via Natural or Artificial Opening Endoscopic (ICD-10-PCS; CPT 45385; principal; 2020-06-25 08:30)
DX: K63.5 Polyp of colon; K62.1 Rectal polyp; K56.2 Volvulus; J44.9 Chronic obstructive pulmonary disease, unspecified; K21.9 Gastro-esophageal reflux disease without esophagitis; G43.909 Migraine, unspecified, not intractable, without status migrainosus; M19.90 Unspecified osteoarthritis, unspecified site; Z96.22 Myringotomy tube(s) status; Z90.89 Acquired absence of other organs; Z80.9 Family history of malignant neoplasm, unspecified; Z79.899 Other long term (current) drug therapy; Z90.711 Acquired absence of uterus with remaining cervical stump
CPT/HCPCS: 45385; 45380

== ENCOUNTER → 2020-07-08 11:21 | Outpatient (CLI) | payer OTHER, SELFPAY ==
[2020-07-08 12:16] LABS: Alanine Aminotransferase 37 U/L (12-78); Albumin/Globulin Ratio 1.3 (1.1-1.8); Alkaline Phosphatase 145 U/L (38-126); Aspartate Amino Transferase 77 U/L (14-36); Bilirubin,Total 0.5 mg/dl (0.2-1.3); Blood Urea Nitrogen 11 mg/dl (7-17); Calcium 9.9 mg/dl (8.4-10.2); Carbon Dioxide 27 mmol/L (22.0-30.0); Chloride 106 mmol/L (98-107); Chol/HDL Ratio 2.2 (1-3.5); Cholesterol 212 mg/dl (140-200); Estimated Glomerular Filt Rate 73 ml/min (>60); GFR (African American) 89 ML/MIN (>60); Globulin 3.1 g/dL (1.3-3.2); Glucose 78 mg/dl (74-100); HDL Cholesterol 98 mg/dl (40-60); Sodium 142 mmol/L (136-145); Total Protein,Serum 7.1 g/dl (6.3-8.2); Triglycerides 81 mg/dl (30-150); VLDL Cholesterol 16 mg/dL (0-40)
[2020-07-08 12:27] LABS: Direct LDL Cholesterol 109.83 mg/dL (100-129)
[2020-07-08 12:35] LABS: 25-OH Vitamin D, Total 93.9 ng/mL (30-100)
== END ==
PROVIDERS: Visit Provider Family Medicine
DX: E78.5 Hyperlipidemia, unspecified (principal); M85.80 Other specified disorders of bone density and structure, unspecified site
CPT/HCPCS: 36415; 80053; 80061; 82306

== ENCOUNTER → 2020-10-28 10:47 | Outpatient (CLI) | payer OTHER, SELFPAY ==
[2020-10-28 11:34] LABS: Coronavirus 19 IgG Antibody Negative (Negative); Coronavirus 19 IgM Antibody Negative (Negative)
== END ==
PROVIDERS: Visit Provider Otolaryngology
DX: Z01.812 Encounter for preprocedural laboratory examination (principal); Z20.822 Contact with and (suspected) exposure to COVID-19; H90.5 Unspecified sensorineural hearing loss; H65.04 Acute serous otitis media, recurrent, right ear; R09.81 Nasal congestion
CPT/HCPCS: 36415; 86328

== ENCOUNTER 2020-10-29 06:08 | Day surgery (SDC) | payer OTHER, SELFPAY ==
[2020-10-24 14:35] VITALS: BMI 19.6
[2020-10-29] VITALS (10 sets, daily range): BP systolic 104–119; BP diastolic 52–87; PULSE 64–83; RESP 16–20; TEMP 36.2–36.6; O2SAT 93–98
--- NOTE | 2020-10-29 07:21 | HMH.ANESCL ---
[facility] Anesthesia Checklist - Structural Data Admitted From: Home Planned Operative Procedure/s: r ear tube Consent for Planned Operative Procedure(s) Verified: Yes - Additional verifications Anesthesia Reactions: No Hx Blood Transfusions: No - Airway Assessment C-Spine Mobility Assessed: Yes TMJ Mobility Assessed: Yes Dentition: Good Dentition - Neurological Assessment Level of Consciousness: Awake, Alert, Appropriate - Anesthesia Plan Anesthesia Risk discussed: Yes Anesthesia Plan: Verified ASA Class: II Anesthesia Type: General [facility] History I have reviewed the patient's past medical history: Yes Medical History: Reports:: Chronic Obstructive Pulmonary Disease (COPD), Gastroesophageal Reflux Disease(GERD), Migraine Denies:: Anxiety, Cancer, Depression, Diabetes Mellitus Type 1, Diabetes Mellitus Type 2, Hyperlipidemia, Hypertension, Internal Pacemaker, MRSA, Seizures *Have you ever received a pneumonia vaccine?: Yes *Have you received a flu vaccine this season?: Yes Other Medical History: Reports: Arthritis Anesthesia experience/problems:: none Laterality Cases: Bilateral: Myringotomy (Ear Tubes), Tonsillectomy Other Surgeries: Yes: Colonoscopy, Hysterectomy-Partial, Other. No: Pacemaker Amputation: No Fractures: Yes (r foot, chanel wrist, toes) - *Social History Last grade of school completed: High school graduate Smoking Status: Former smoker Alcohol Intake: current Alcohol Intake Frequency:: holidays/special occasions only Substance Use Type: denies use *Occupational Status:: unemployed Housing: house Household Members: spouse *Travel in the last 8 weeks: None - Psychiatric History Pschychiatric History:: Denies:: Anxiety, Depression Family Hx:: Cancer, Heart Attack
--- NOTE | 2020-10-29 07:56 | HMH.ANESI ---
[facility] Anesthesia Record Part I Intake, IV Amount: 600 Estimated blood loss (mL): 0 Urine output (mL): 0 Blood Pressure: 111/75 SaO2: 93 Pulse Rate: 75 Respiratory Rate: 20 Temperature: 97.6 F Patient is:: Awake Stable to PACU at:: 07:58
--- NOTE | 2020-10-29 08:23 | P.OP_ITS ---
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 Serous fluid was obtained and a Triune T-tube was placed Ciprodex drops were applied and the patient was sent to recovery in good general condition signed Clay Fang MD. Condition: stable Disposition: PACU Complications:: None
--- NOTE | 2020-10-29 10:22 | HMH.ANESII ---
[facility] Anesthesia Record Part II Discharge Time: 08:19 Destination: Surgical Day Care (OP Surgery) PACU nurse assessment reviewed?: Yes Patient Condition:: Good Anesthesia Complications:: None Swallowing reflex intact?: Yes Cyanosis?: No Blood Pressure: 108/78 Pulse Rate: 64 Temperature: 97.6 F Mental Status: Alert & Oriented Pain level:: 0 Nausea and/or vomitting:: None Intake, IV Amount: 0
== END 2020-10-29 08:50 | disposition home or self-care (01) ==
LOC: OR 06:10
PROVIDERS: PCP Family Medicine; Visit Provider Otolaryngology
PROC: (CPT 69436; principal; 2020-10-29 07:30)
DX: H65.91 Unspecified nonsuppurative otitis media, right ear (principal); J44.9 Chronic obstructive pulmonary disease, unspecified; K21.9 Gastro-esophageal reflux disease without esophagitis; G43.909 Migraine, unspecified, not intractable, without status migrainosus; M19.90 Unspecified osteoarthritis, unspecified site; Z79.82 Long term (current) use of aspirin; Z79.899 Other long term (current) drug therapy
CPT/HCPCS: 69436; 96374

== ENCOUNTER → 2020-10-31 10:25 | Outpatient (CLI) | payer OTHER, SELFPAY ==
--- NOTE | 2020-10-31 10:28 | XR_ITS ---
PROCEDURE: XR KNEE LT 3V CLINICAL INDICATION: LT KNEE PAIN COMPARISON: No exams were available for comparison FINDINGS: No fracture or dislocation. No lytic or blastic change. There is normal mineralization. There are mild osteoarthritic changes involving all 3 compartments. There is a thin linear density along the lateral aspect of the medial tibial plateau. This was present on older exam and could represent sequela from an old injury. Other findings:None. IMPRESSION: No acute findings. Dictated by: Adarsh Edmondson MD 10/31/2020 11:00 Adarsh Edmondson MD in [place] 10/31/2020 11:00
== END ==
PROVIDERS: PCP Family Medicine; Visit Provider Family Medicine
DX: S89.92XA Unspecified injury of left lower leg, initial encounter (principal)
CPT/HCPCS: 73562

== ENCOUNTER → 2021-01-07 13:17 | Outpatient (CLI) | payer OTHER, SELFPAY ==
--- NOTE | 2021-01-07 13:19 | CT_ITS ---
PROCEDURE: CT LUNG SCREENING CLINICAL INDICATION: HX OF NICOTINE DEPENDENCE Former smoker Quit smoking 3 years ago 50 pack year smoking history copd COMPARISON: CT CT LUNG SCREENING from 07/13/2019 TECHNIQUE: The exam was performed on a [employer] Speed [address] scanner using 2.90 mGy CTDI. A low dose helical CT CHEST was performed on a multi-detector scanner. All CT scans at the facility use one or more dose reduction, viz: automated exposure control, ma/kV adjustment per patient size (including targeted exams where dose is matched to indication, i.e. head), or iterative reconstruction technique. The LDCT was performed in a facility that meets the criteria for the screening program. Data regarding this exam was submitted to ACR which is an approved registry. The order for this exam indicates that it came as a result of a lung cancer screening counseling shard decision-making visit that included all the elements required of such a visit including smoking cessation. The radiologist interpreting this exam meets the CMS criteria for the LDCT lung cancer screening program. The exam is reported using the Lung-RADS classification scale and reported to the ACR registry. NOTE: This study was performed for the specific purposes of lung cancer screening and is not an alternative to diagnostic chest CT. RADIATION DOSE: CTDI vol(CT dose Index-volume) = 2.90mG DLP (Dose Length Product) = 106.03 mGcm FINDINGS: COPD with scattered areas of scarring. Minimal thickening of the major fissure inferiorly on the right unchanged. Evidence of old granulomatous disease. Tracheobronchomegaly noted. OTHER FINDINGS: Scattered small nodes are present in the retroperitoneum in the upper abdominal region. Degenerative changes are present in the thoracic spine. There is mild posterior subluxation T12 on L1 of approximately 5 mm. IMPRESSION: Lung-RADS Category 2 Benign Appearance or Behavior Follow-up: Continue annual screening with LDCT in 12 months Dictated by: Adarsh Edmondson MD 01/16/2021 10:32 Adarsh Edmondson MD in [place] 01/16/2021 10:32
== END ==
PROVIDERS: PCP Family Medicine; Visit Provider Family Medicine
DX: Z87.891 Personal history of nicotine dependence (principal); Z12.2 Encounter for screening for malignant neoplasm of respiratory organs
CPT/HCPCS: 71271

== ENCOUNTER → 2021-06-04 10:58 | Outpatient (CLI) | payer OTHER, SELFPAY ==
--- NOTE | 2021-06-04 10:58 | MM_ITS ---
PROCEDURE: MM DIG SCREENING MAMM BI W/CAD Digital Breast Tomosynthesis Included CLINICAL INDICATION: screening xmg COMPARISON: MG [facility] MM Dig screening mamm BI w/CAD from 10/19/2017 [facility] MM Dig screening mamm BI w/CAD from 01/16/2019 MG MM DIG SCREENING MAMM BI W/CAD from 03/12/2020 TECHNIQUE: Standard CC and MLO images and 3D Tomosynthesis was obtained. R2 CAD reviewed. FINDINGS: The breasts are extremely dense which lowers the sensitivity of mammography. No suspicious appearing mass, malignant-appearing microcalcification, architectural distortion, or skin thickening. Benign-appearing calcifications left breast IMPRESSION: No change with no evidence of malignancy BI-RAD Category: 2 Benign Finding FOLLOW-UP: 1 YR 1 Year Follow-up (A letter has been sent to the patient regarding results of the study.) Dictated by: Adarsh Edmondson MD 06/23/2021 08:41 Adarsh Edmondson MD in [place] 06/23/2021 08:41
== END ==
PROVIDERS: PCP Family Medicine; Visit Provider Nurse Practitioner Obstetrics & Gynecology
DX: Z12.31 Encounter for screening mammogram for malignant neoplasm of breast (principal)
CPT/HCPCS: 77063; 77067

== ENCOUNTER → 2021-07-15 11:03 | Outpatient (CLI) | payer OTHER, SELFPAY ==
[2021-07-15 12:06] LABS: Alanine Aminotransferase 56 U/L (12-78); Albumin Level 3.7 g/dl (3.5-5.0); Albumin/Globulin Ratio 1.2 (1.1-1.8); Alkaline Phosphatase 89 U/L (38-126); Anion Gap 9.1 mEq/L (5-15); Aspartate Amino Transferase 121 U/L (14-36); Bilirubin,Total 0.5 mg/dl (0.2-1.3); Blood Urea Nitrogen 6 mg/dl (7-17); Calcium 9.7 mg/dl (8.4-10.2); Carbon Dioxide 30 mmol/L (22.0-30.0); Chloride 105 mmol/L (98-107); Chol/HDL Ratio 2.3 (1-3.5); Cholesterol 219 mg/dl (140-200); Estimated Glomerular Filt Rate 102 ml/min (>60); GFR (African American) 123 ML/MIN (>60); Globulin 3.1 g/dL (1.3-3.2); Glucose 105 mg/dl (74-100); HDL Cholesterol 95 mg/dl (40-60); Potassium 4.1 mmoL/L (3.5-5.1); Sodium 140 mmol/L (136-145); Total Protein,Serum 6.8 g/dl (6.3-8.2); Triglycerides 100 mg/dl (30-150); VLDL Cholesterol 20 mg/dL (0-40)
[2021-07-15 12:16] LABS: Direct LDL Cholesterol 101.28 mg/dL (100-129)
== END ==
PROVIDERS: Visit Provider Family Medicine
DX: E78.5 Hyperlipidemia, unspecified (principal)
CPT/HCPCS: 36415; 80053; 80061

== ENCOUNTER → 2022-04-14 14:19 | Outpatient (CLI) | payer OTHER, SELFPAY ==
[2022-04-14 14:50] LABS: Chloride 103 mmol/L (98-107); Potassium 3.7 mmoL/L (3.5-5.1); Sodium 138 mmol/L (136-145)
[2022-04-14 14:53] LABS: Alanine Aminotransferase 62 U/L (12-78); Albumin Level 4.2 g/dl (3.5-5.0); Albumin/Globulin Ratio 1.4 (1.1-1.8); Alkaline Phosphatase 99 U/L (38-126); Anion Gap 8.7 mEq/L (5-15); Aspartate Amino Transferase 99 U/L (14-36); Bilirubin,Total 0.8 mg/dl (0.2-1.3); Blood Urea Nitrogen 12 mg/dl (7-17); Carbon Dioxide 30 mmol/L (22.0-30.0); Cholesterol 217 mg/dl (140-200); Estimated Glomerular Filt Rate 73 ml/min (>60); GFR (African American) 88 ML/MIN (>60); Total Protein,Serum 7.2 g/dl (6.3-8.2); Triglycerides 63 mg/dl (30-150); VLDL Cholesterol 13 mg/dL (0-40)
[2022-04-14 14:54] LABS: Calcium 9.8 mg/dl (8.4-10.2); Chol/HDL Ratio 2.3 (1-3.5); Glucose 105 mg/dl (74-100); HDL Cholesterol 96 mg/dl (40-60)
[2022-04-14 15:05] LABS: Direct LDL Cholesterol 91.59 mg/dL (100-129)
== END ==
PROVIDERS: PCP Family Medicine; Visit Provider Family Medicine
DX: E78.5 Hyperlipidemia, unspecified (principal)
CPT/HCPCS: 36415; 80053; 80061

== ENCOUNTER → 2022-04-14 14:30 | Outpatient (CLI) | payer OTHER, SELFPAY ==
--- NOTE | 2022-04-14 14:36 | CT_ITS ---
FINAL REPORT CLINICAL HISTORY: S/O NICOTINE DEPENDENCE former smoker, quit 2 years ago. smoked 1ppd x 35 years. copd, emphysema no family hx of lung cancer. COMPARISON: 01/07/2021 FINDINGS: Low-Dose Chest CT Axial images were obtained from the lung apex to the mid abdomen by computed tomography. Low-dose protocol was utilized. CTDI vol (mGy): 2.90 DLP (mGy-cm): 96.38 There is no axillary adenopathy. There is no hilar or mediastinal adenopathy. The heart is proper size. There is no pericardial or pleural effusion. Limited images of the upper abdomen are unremarkable. Lung window images demonstrate subtle nodularity along the superior aspect of the major fissure is which is stable as is biapical scar. There is emphysema and evidence of prior granulomatous disease. The lungs are otherwise clear. No new nodule is identified. IMPRESSION: Chronic pulmonary findings as above. Lung RADS category 1. Recommend 12 month follow-up low-dose chest CT. Reviewed, Interpreted and Dictated by Kristi Bethea MD Transcribed by Spring Pressley Authenticated and [facility]
== END ==
PROVIDERS: PCP Family Medicine; Visit Provider Family Medicine
DX: Z87.891 Personal history of nicotine dependence (principal); Z12.2 Encounter for screening for malignant neoplasm of respiratory organs
CPT/HCPCS: 71271

== ENCOUNTER → 2022-07-01 14:13 | Outpatient (CLI) | payer OTHER, SELFPAY ==
--- NOTE | 2022-07-01 14:16 | MM_ITS ---
PROCEDURE INFORMATION: Exam: MG Bilateral Screening 3D Mammography Exam date and time: 07/01/2022 2:16 PM Age: 61 years old Clinical indication: Screening. Her mother had breast cancer. TECHNIQUE: Imaging protocol: Bilateral Screening tomosynthesis and 2D mammography including computer-aided detection (CAD) when performed. COMPARISON: 1. MG MM DIG SCREENING MAMM BI W/CAD 06/04/2021 10:57 AM 2. MG MM DIG SCREENING MAMM BI W/CAD 03/12/2020 10:34 AM 3. MG [facility] MM Dig screening mamm BI w/CAD 01/16/2019 10:39 AM 4. MG [facility] MM Dig screening mamm BI w/CAD 10/19/2017 11:06 AM FINDINGS: MAMMOGRAPHY: Breast composition: The breasts are heterogeneously dense, which may obscure small masses. Mass: None. Architectural distortion: None. Calcifications: No suspicious calcifications. Asymmetric density: None. Skin thickening: None. Axillary adenopathy: None. IMPRESSION: No mammographic evidence of malignancy. Annual screening is recommended unless otherwise clinically indicated. ASSESSMENT: BI-RADS Category 1: Negative
== END ==
PROVIDERS: PCP Family Medicine; Visit Provider Nurse Practitioner Obstetrics & Gynecology
DX: Z12.31 Encounter for screening mammogram for malignant neoplasm of breast (principal)
CPT/HCPCS: 77063; 77067

== ENCOUNTER → 2022-07-23 09:51 | Outpatient (CLI) | payer OTHER, SELFPAY ==
--- NOTE | 2022-07-23 09:55 | XR_ITS ---
FINAL REPORT TECHNIQUE: Bone densitometry calculations of the lumbar spine and hip were obtained. CLINICAL HISTORY: osteopenia COMPARISON: 01/19/2020 FINDINGS: DEXA BONE DENSITY AXIAL SKELETON Using L1-4, the bone mineral density of the spine is 1.242 g/cm2, corresponding to T-score of 1.8. Previously measured 1.127 g/cm2, corresponding to T-score of 0.7. Note these values are likely falsely elevated secondary to hypertrophic changes. Using the left hip, the bone mineral density of the femoral neck is 0.620 g/cm2, corresponding to a T-score of -2.6. Previously measured 0.665 g/cm2, corresponding to T-score of -2.3. NOTE: T-score: Standard deviation compared with peak bone mass of young adult mean. *Following the recommendations of the International Society of Bone densitometry, classification of hip BMD is based on the lower of two T-scores; total hip or femoral neck. IMPRESSION: Osteoporosis: Lowest T-score is at or below -2.5. This patient's T-score meets the World Health Organization criteria for osteoporosis. Reviewed, Interpreted and Dictated by Jae Stone III, MD Transcribed by Spring Pressley Authenticated and [facility]
== END ==
PROVIDERS: PCP Family Medicine; Visit Provider Family Medicine
DX: Z13.820 Encounter for screening for osteoporosis (principal); M81.0 Age-related osteoporosis without current pathological fracture
CPT/HCPCS: 77080

== ENCOUNTER → 2023-07-02 10:49 | Outpatient (CLI) | payer OTHER, SELFPAY ==
--- NOTE | 2023-07-02 10:50 | MM_ITS ---
PROCEDURE INFORMATION: Exam: MG Bilateral Screening 3D Mammography Exam date and time: 07/02/2023 10:37 AM Age: 62 years old Clinical indication: Screening mammogram TECHNIQUE: Imaging protocol: Bilateral Screening tomosynthesis and 2D mammography including computer-aided detection (CAD) when performed. COMPARISON: 1. MG MM DIG SCREENING MAMM BI W/CAD 07/01/2022 2:16 PM 2. MG MM DIG SCREENING MAMM BI W/CAD 06/04/2021 10:57 AM 3. MG MM DIG SCREENING MAMM BI W/CAD 03/12/2020 10:34 AM 4. MG [facility] MM Dig screening mamm BI w/CAD 01/16/2019 10:39 AM FINDINGS: MAMMOGRAPHY: Breast composition: The breast is heterogeneously dense, which may obscure small masses. Mass: None. Architectural distortion: No new or suspicious architectural distortion. Calcifications: No new or suspicious calcifications are present Asymmetric density: No new or suspicious asymmetric density is present Skin thickening: None. Axillary adenopathy: None. IMPRESSION: No mammographic evidence of malignancy. Recommend annual screening mammography unless otherwise clinically indicated. ASSESSMENT: BI-RADS category 1: Negative
== END ==
PROVIDERS: PCP Family Medicine; Visit Provider Nurse Practitioner Obstetrics & Gynecology
DX: Z12.31 Encounter for screening mammogram for malignant neoplasm of breast (principal)
CPT/HCPCS: 77063; 77067

== ENCOUNTER → 2023-07-27 14:47 | Outpatient (CLI) | payer OTHER, SELFPAY ==
--- NOTE | 2023-07-27 14:52 | CT_ITS ---
FINAL REPORT TECHNIQUE: Thin section axial images were obtained through the lungs using a low-dose technique per lung cancer screening protocol. Reconstruction images were obtained using the axial data. Exam was performed using dose reduction technique. CLINICAL HISTORY: FORMER SMOKER, quit 4 yrs ago 1ppd x 30 yrs COMPARISON: 04/14/2022 FINDINGS: CTDLvol: 2.90 DLP: 103.42 Former smoker 30 pack year history Lungs: Biapical pleural scarring is stable. There is subpleural nodularity in both upper lobes which is unchanged. Emphysema is noted. There is granulomatous disease. No new nodule or mass is identified. There is no consolidation. Lymph nodes: No thoracic lymphadenopathy. Mediastinum: Heart size is normal. Pleura/pericardium: No pleural or pericardial effusion. Other: No acute abnormality in the upper abdomen. IMPRESSION: Stable biapical pleural scarring and subpleural nodularity. Lung RADS: 1 Recommendation: 12-month follow-up low-dose CT recommended. Reviewed, Interpreted and Dictated by Kristi Bethea MD Transcribed by Carin Simmons Authenticated and [facility]
== END ==
PROVIDERS: PCP Family Medicine; Visit Provider Family Medicine
DX: Z87.891 Personal history of nicotine dependence (principal); Z12.2 Encounter for screening for malignant neoplasm of respiratory organs
CPT/HCPCS: 71271

== ENCOUNTER 2023-08-17 08:48 | Day surgery (SDC) | payer OTHER, SELFPAY ==
[2023-08-17] VITALS (7 sets, daily range): BP systolic 120–136; BP diastolic 71–90; PULSE 70–81; RESP 18–19; TEMP 36.4–36.6; O2SAT 97–99; BMI 18.3
== END 2023-08-17 10:57 | disposition home or self-care (01) ==
PROVIDERS: PCP Family Medicine; Visit Provider Ophthalmology
PROC: (CPT 66984; principal; 2023-08-17 11:00)
DX: H25.811 Combined forms of age-related cataract, right eye (principal)
CPT/HCPCS: 66984; V2632

== ENCOUNTER 2023-10-01 08:30 | Day surgery (SDC) | payer OTHER, SELFPAY ==
[2023-09-30 09:34] VITALS: BMI 186.6
[2023-10-01 08:51] VITALS: BP 132/85; PULSE 64; RESP 18; TEMP 36.7; O2SAT 97
[2023-10-01] MEDS: LACTATED RINGERS 1000ML 1,000 ML 25 ML IV (08:56)
--- NOTE | 2023-10-01 09:06 | P.PCN_ITS ---
Procedure: Date: 10/01/23 Patient Date of :: 1960 Procedure Performed:: Colonoscopy to terminal ileum with hemorrhoid banding Indications:: Patient is a 63-year-old female. She presents for follow-up colonoscopy. I had performed colonoscopy on 06/25/2020 for evaluation of some rectal bleeding. She did have a colonoscopy in 2010 which was unremarkable. At the time of her colonoscopy in June 2020 she had about a 6-month history of painless rectal bleeding with some associated itching. She was found to have fair colonic preparation, atonic floppy colon, diminutive cecal polyp. She had an 8 to 10 mm adenomatous distal rectal polyp which was removed with snare as well as a couple of additional diminutive polyps. She had a tubular adenoma. Given the adenomatous polyp with suboptimal preparation recommendations were for 2-year follow-up colonoscopy. Patient does have some constipation. She states that over the past several months she has had some painless rectal bleeding as noted before. Performing Provider:: Jae Amaya MD Referring Provider:: oCy Duarte MD Sedation:: MAC sedation Procedure:: Patient history was obtained and appropriate physical examination was performed. Patient's medications and allergies were reviewed. Informed consent was obtained after explaining the benefits, alternatives, and risks of the procedure including, but not limited to, bleeding, perforation, missed lesions, and adverse reaction to anesthesia medications. Patient was transported to endoscopy procedure room. Patient was connected to monitoring devices. Throughout the procedure the patient's blood pressure, pulse, and oxygen saturations were monitored continuously. Patient identification and planned procedure were verified by the staff. Patient was positioned in lateral decubitus position. Digital anorectal exam was performed. Variable stiffness Olympus colonoscope was inserted and advanced under direct visualization to the cecum. Adequacy of the colonic preparation was noted. The colonoscope was advanced a short distance into the terminal ileum. The colonoscope was then slowly withdrawn while carefully examining the color, texture, anatomy, and integrity of the mucosoa circumferentially. Within the rectum retroflexion was performed. Colonoscope was then withdrawn. . Colonoscope was advanced to the cecum. This was rather difficult due to significant redundancy and floppy the sigmoid colon. Colonic preparation was poor as there was thick viscous stool throughout the colon coating the ross. With high-volume irrigation and suctioning this was unable to be fully cleared. Colonoscope was withdrawn but visualization was poor. Within the rectum retroflexion was performed which revealed a couple of somewhat inflamed prolaps ing hemorrhoid piles. The colonoscope was replaced with the endoscope and the super 7 banding device was attached. At the site of one of the larger prolapsing hemorrhoid piles a couple of bands were deployed. There was another hemorrhoid pile which appeared somewhat exudative but additional banding was not performed at this time. Endoscope was withdrawn. . Findings:: Redundant floppy colon Poor visualization Internal hemorrhoids Recommendations:: Recommend repeat colonoscopy in several months with multiday aggressive bowel prep. May need additional hemorrhoid banding. Complications:: None immediately apparent Estimated blood obtained (mL): 1 Colonoscopy Component Colonoscopy Component Was a colonoscopy performed during today's procedure?: Yes Recommended follow up colonoscopy of at least 10 years?: No If no, follow up colonoscopy recommended in ___ years?: See above Reason for not recommending >/= 10 yr follow-up interval?: See above
--- NOTE | 2023-10-01 09:07 | EXP.ANES.CKL ---
[facility] Disclaimer: The information contained in this section may have been updated after the patient was seen, as this information can be updated by other users. Medical History Allergies Asthma Hearing Loss Surgical History History of back surgery History of partial hysterectomy History of tonsillectomy Family History Other Cancer Social History Smoking Status: Former smoker alcohol intake: never substance use type: denies use current occupational status: unemployed Travel in the last 8 weeks: None household members: spouse housing: house current occupational exposures/hazards: No caffeine: Yes [facility] Anesthesia Checklist Patient Identification Patient Identification: Arm Band and Verbal (Name & ) Structural Data Admitted From: Home Planned Operative Procedure/s: Colonoscopy Consent for Planned Operative Procedure(s) Verified: Yes NPO Status Verified Time NPO: 00:00 Additional verifications Anesthesia Reactions: No Hx Blood Transfusions: No Blood Transfusion Reaction: No Airway Assessment Mallampati Score:: Class I C-Spine Mobility Assessed: Yes TMJ Mobility Assessed: Yes Dentition: Good Dentition Neurological Assessment Level of Consciousness: Awake Hx Seizures: No Numbness or tingling in extremities: No Anesthesia Plan Anesthesia Risk discussed: Yes Anesthesia Plan: Verified ASA Class: I Anesthesia Type: MAC
[2023-10-01 09:09] VITALS: O2SAT 97
[2023-10-01 09:55] VITALS: BP 82/53; PULSE 75; RESP 16; TEMP 36.1; O2SAT 92
[2023-10-01 10:05] VITALS: BP 86/57; PULSE 74; RESP 16; O2SAT 93
[2023-10-01 10:15] VITALS: BP 103/80; PULSE 68; RESP 16; O2SAT 95
[2023-10-01 10:25] VITALS: BP 106/57; PULSE 70; RESP 16; O2SAT 97
== END 2023-10-01 10:40 | disposition home or self-care (01) ==
LOC: OUTP 08:31
PROVIDERS: PCP Family Medicine; Visit Provider Surgery
PROC: 0DJD8ZZ Inspection of Lower Intestinal Tract, Via Natural or Artificial Opening Endoscopic (ICD-10-PCS; CPT 45378; principal; 2023-10-01 09:30)
DX: K62.5 Hemorrhage of anus and rectum (principal); Z86.010 Personal history of colon polyps; K59.00 Constipation, unspecified; K56.2 Volvulus; K64.8 Other hemorrhoids; Z91.199 Patient's noncompliance with other medical treatment and regimen due to unspecified reason
CPT/HCPCS: 45378; J2704

== ENCOUNTER 2024-02-04 08:27 | Day surgery (SDC) | payer OTHER, SELFPAY ==
[2024-02-02 13:44] VITALS: BMI 18.9
--- NOTE | 2024-02-04 08:36 | P.PCN_ITS ---
Procedure: Date: 02/04/24 Patient Date of :: 1960 Procedure Performed:: Colonoscopy to cecum with biopsy polypectomy . Indications:: Patient is a 63-year-old female who presents for attempted repeat colonoscopy. I had performed colonoscopy on her on 06/25/2020 for evaluation of some rectal bleeding. She also had a colonoscopy in 2010. This was unremarkable. When she had her colonoscopy in 2009 she had fair colonic preparation with atonic floppy colon. She had a colonoscopy on 06/25/2020 at which time she had a rectal tubular adenoma. She has a history of significant constipation. I had perfo rmed colonoscopy on 10/01/2023 for rectal bleeding once again. Patient reports constipation. Colonoscope was ultimately able to be advanced to the cecum but this was somewhat difficult due to redundancy, atony, and floppiness of the colon. She was found to have very thick viscous stool adherent to the ross of the colon and despite high volume trans colonoscopic irrigation this was unable to be cleared. She did have some prolapsing internal hemorrhoids and a couple of piles were banded with the endoscopic banding device. Recommendations were for repeat colonoscopy with multiday aggressive bowel prep given her poor colonic preparation. She did some doses of MiraLAX 2 days prior to planned colonoscopy and 3 bottles of magnesium citrate the day before but states that she vomited 2 of those up. She describes ongoing painless rectal bleeding with bowel movements. . Performing Provider:: Jae Amaya MD Referring Provider:: Coy Duarte MD Sedation:: MAC sedation Procedure:: Patient history was obtained and appropriate physical examination was performed. Patient's medications and allergies were reviewed. Informed consent was obtained after explaining the benefits, alternatives, and risks of the procedure including, but not limited to, bleeding, perforation, missed lesions, and adverse reaction to anesthesia medications. Patient was transported to endoscopy procedure room. Patient was connected to monitoring devices. Throughout the procedure the patient's blood pressure, pulse, and oxygen saturations were monitored continuously. Patient identification and planned procedure were verified by the staff. Patient was positioned in lateral decubitus position. Digital anorectal exam was performed. Variable stiffness Olympus colonoscope was inserted and advanced under direct visualization to the cecum. Adequacy of the colonic preparation was noted. . The colonoscope was then slowly withdrawn while carefully examining the color, texture, anatomy, and integrity of the mucosoa circumferentially. Within the rectum retroflexion was performed. Colonoscope was then withdrawn. . Impression: Colonic preparation was fair as there was some viscous liquid stool adherent to the colon ross of the right colon. Much of this was able to be cleared. The colonoscope was not advanced into the terminal ileum. Colon was very appreciably floppy , atonic, and redundant particularly the sigmoid colon. This required abdominal wall pressure for the colonoscope to ultimately be advanced to the cecum. Within the cecum there was a tiny diminutive hyperplastic appearing polyp removed with cold biopsy forceps. There were a few rare sigmoid diverticuli. Retroflexion within the rectum revealed internal prolapsing hemorrhoids and there was anorectal exudative superficial ulceration likely from previous hemorrhoid banding site. . Findings:: Fair preparation Severely atonic and redundant colon Rare sigmoid diverticuli Diminutive cecal polyp Internal hemorrhoids and anorectal superficial ulceration (likely previous hemorrhoid banding site) Recommendations:: Follow-up on pathology. Patient likely would benefit from gastroenterology evaluation to regulate her bowel regimen and potential colorectal surgical evaluation once her bowels are regulated for consideration of surgical hemorrhoid procedure if necessary, assessment of anorectal ulceration, and possible colon resection due to her colonic atony and redundancy. Complications:: None immediately apparent Estimated blood obtained (mL): 1 Colonoscopy Component Colonoscopy Component Was a colonoscopy performed during today's procedure?: Yes Recommended follow up colonoscopy of at least 10 years?: No If no, follow up colonoscopy recommended in ___ years?: See above Reason for not recommending >/= 10 yr follow-up interval?: See above
[2024-02-04 08:45] VITALS: BP 125/82; PULSE 92; RESP 18; TEMP 36.6; O2SAT 96; BMI 18.9
[2024-02-04] MEDS: LACTATED RINGERS 1000ML 1,000 ML 25 ML IV (08:45)
[2024-02-04 09:00] VITALS: O2SAT 97
--- NOTE | 2024-02-04 09:04 | P.PNANES_ITS ---
[facility] Disclaimer: The information contained in this section may have been updated after the patient was seen, as this information can be updated by other users. Medical History Migraine COPD (chronic obstructive pulmonary disease) Asthma Allergies Hearing Loss Surgical History History of partial hysterectomy History of tonsillectomy History of back surgery Family History Other Cancer Social History Smoking Status: Former smoker alcohol intake: never substance use type: denies use current occupational status: unemployed Travel in the last 8 weeks: None household members: spouse housing: house current occupational exposures/hazards: No caffeine: Yes [facility] Anesthesia Checklist Patient Identification Patient Identification: Arm Band Structural Data Admitted From: Home Planned Operative Procedure/s: colonoscopy Consent for Planned Operative Procedure(s) Verified: Yes Verified Documents: Surgical Consent and History and Physical NPO Status Verified Time NPO: 00:00 Additional verifications Anesthesia Reactions: No Hx Blood Transfusions: No Blood Transfusion Reaction: No Airway Assessment Mallampati Score:: Class II C-Spine Mobility Assessed: Yes TMJ Mobility Assessed: Yes Dentition: Good Dentition Neurological Assessment Level of Consciousness: Awake, Alert and Appropriate Anesthesia Plan Anesthesia Risk discussed: Yes Anesthesia Plan: Verified ASA Class: II Anesthesia Type: MAC
[2024-02-04 10:05] VITALS: BP 130/77; PULSE 73; RESP 18; O2SAT 100
[2024-02-04 10:15] VITALS: BP 128/81; PULSE 57; RESP 18; O2SAT 100
[2024-02-04 10:24] VITALS: BP 133/81; PULSE 56; RESP 18; O2SAT 100
== END 2024-02-04 10:25 | disposition home or self-care (01) ==
PROVIDERS: PCP Family Medicine; Visit Provider Surgery
PROC: 0DJD8ZZ Inspection of Lower Intestinal Tract, Via Natural or Artificial Opening Endoscopic (ICD-10-PCS; CPT 45380; principal; 2024-02-04 09:30)
DX: Z12.11 Encounter for screening for malignant neoplasm of colon (principal); K63.5 Polyp of colon; Z86.010 Personal history of colon polyps; K59.00 Constipation, unspecified; K57.30 Diverticulosis of large intestine without perforation or abscess without bleeding; K64.8 Other hemorrhoids
CPT/HCPCS: 45380; J2704

== ENCOUNTER 2024-02-22 10:10 | Outpatient (CLI) | payer OTHER, SELFPAY ==
[2024-02-22 11:56] LABS: Alanine Aminotransferase 32 U/L (12-78); Albumin Level 3.5 g/dl (3.5-5.0); Albumin/Globulin Ratio 1.2 (1.1-1.8); Alkaline Phosphatase 137 U/L (38-126); Anion Gap 7.9 mEq/L (5-15); Aspartate Amino Transferase 53 U/L (14-36); Bilirubin,Total 0.4 mg/dl (0.2-1.3); Blood Urea Nitrogen 6 mg/dl (7-17); Calcium 8.9 mg/dl (8.4-10.2); Carbon Dioxide 29 mmol/L (22.0-30.0); Chloride 104 mmol/L (98-107); Chol/HDL Ratio 2.3 (1-3.5); Cholesterol 211 mg/dl (140-200); Estimated Glomerular Filt Rate 72 ml/min (>60); GFR (African American) 88 ML/MIN (>60); Glucose 93 mg/dl (74-100); HDL Cholesterol 91 mg/dl (40-60); Potassium 3.9 mmoL/L (3.5-5.1); Sodium 137 mmol/L (136-145); Total Protein,Serum 6.5 g/dl (6.3-8.2); Triglycerides 192 mg/dl (30-150); VLDL Cholesterol 38 mg/dL (0-40)
[2024-02-22 12:07] LABS: Direct LDL Cholesterol 81.97 mg/dL (100-129)
== END 2024-02-22 23:59 | disposition home or self-care (01) ==
LOC: LAB 10:11
PROVIDERS: PCP Family Medicine; Visit Provider Family Medicine
DX: E78.5 Hyperlipidemia, unspecified (principal)
CPT/HCPCS: 36415; 80053; 80061

== ENCOUNTER 2024-05-08 16:48 | Outpatient (CLI) | payer OTHER, SELFPAY ==
[2024-05-08 17:49] LABS: Uric Acid 4.5 mg/dl (2.5-6.2)
[2024-05-08 17:50] LABS: Erythrocyte Sedimentation Rate 12 mm/hr (0-30)
[2024-05-10 14:09] LABS: RA Latex Turbid. 13.4 IU/mL (<14.0)
[2024-05-10 14:13] LABS: Anti-Cyclic Citrullinated Pept 5 units (0-19)
[2024-05-11 08:27] LABS: Antinuclear Antibodies, IFA Negative (.)
[2024-05-17 09:32] LABS: Antinuclear Antibodies (ANA) NEGATIVE
== END 2024-05-08 23:59 | disposition home or self-care (01) ==
LOC: LAB 16:49
PROVIDERS: PCP Family Medicine; Visit Provider Internal Medicine Pulmonary Disease
DX: J84.9 Interstitial pulmonary disease, unspecified (principal); R06.09 Other forms of dyspnea
CPT/HCPCS: 36415; 84550; 85651; 86038; 86140; 86200; 86225; 86235; 86431

== ENCOUNTER 2024-06-22 13:10 | Outpatient (CLI) | payer OTHER, SELFPAY ==
[2024-06-22 14:15] VITALS: PULSE 59
[2024-06-22] MEDS: ALBUTEROL 0.083% 2.5 MG/3 ML NEB IH (14:15)
== END 2024-06-22 23:59 | disposition home or self-care (01) ==
LOC: RT 13:13
PROVIDERS: PCP Family Medicine; Visit Provider Internal Medicine Pulmonary Disease
DX: R06.09 Other forms of dyspnea (principal)
CPT/HCPCS: 94060; 94618; 94640; 94726; 94729; J7613

== ENCOUNTER 2024-07-24 12:57 | Outpatient (CLI) | payer OTHER, SELFPAY ==
--- NOTE | 2024-07-24 12:58 | MM_ITS ---
PROCEDURE INFORMATION: Exam: MG Bilateral Screening 3D Mammography Exam date and time: 07/24/2024 12:55 PM Age: 64 years old Clinical indication: Screening exam. TECHNIQUE: Imaging protocol: Bilateral Screening tomosynthesis and 2D mammography including computer-aided detection (CAD) when performed. COMPARISON: 1. MG MM DIG SCREENING MAMM BI W/CAD 07/02/2023 10:37 AM 2. MG MM DIG SCREENING MAMM BI W/CAD 07/01/2022 2:16 PM FINDINGS: MAMMOGRAPHY: Breast composition: The breasts are heterogeneously dense, which may obscure small masses. Mass: No suspicious masses. Architectural distortion: None. Calcifications: No suspicious calcifications. Asymmetric density: None. Skin thickening: None. Axillary adenopathy: None. IMPRESSION: No mammographic evidence of malignancy. Annual screening is recommended unless otherwise clinically indicated. ASSESSMENT: BI-RADS Category 1: Negative.
== END 2024-07-24 23:59 | disposition home or self-care (01) ==
LOC: RAD 12:58
PROVIDERS: PCP Family Medicine; Visit Provider Nurse Practitioner Obstetrics & Gynecology
DX: Z12.31 Encounter for screening mammogram for malignant neoplasm of breast (principal)
CPT/HCPCS: 77063; 77067

== ENCOUNTER 2024-08-16 15:58 | Outpatient (CLI) | payer OTHER, SELFPAY ==
--- NOTE | 2024-08-16 15:58 | XR_ITS ---
FINAL REPORT TECHNIQUE: Bone densitometry calculations of the lumbar spine and left hip were obtained. CLINICAL HISTORY: Screeing Dexa Scan COMPARISON: 07/23/2022 FINDINGS: Using L1-4, the bone mineral density of the spine is 1.327 g/cm2, corresponding to T-score of 2.5 and a Z score of 4.2. This is within the range of normal limits. This previously was 1.242 with a T-score of 1.8 and Z-score of 3.3. Using the left hip, the bone mineral density of the femoral neck is 0.584 g/cm2, corresponding to a T-score of -2.4 and a Z-score of -0.9. This is within the range of osteopenia. Previously was 0.620 with T-score of-2.6 and Z-score of -1.6. Using the right hip, the bone mineral density of the femoral neck is 0.616 g/cm2, corresponding to a T-score of -2.1 and a Z-score of -0.6. This is within the range of osteopenia. Previously was 0.615 with T-score of-2.1 and Z-score -0.7. FRAX 10 year fracture risk is 3.7% for a hip fracture and 31% for a major osteoporotic fracture. NOTE: T-score: Standard deviation compared with peak bone mass of young adult mean. *Following the recommendations of the International Society of Bone densitometry, classification of hip BMD is based on the lower of two T-scores; total hip or femoral neck. IMPRESSION: 1. Bone mineral density of the lumbar spine within the range of normal limits. 2. Bone mineral density of the bilateral femoral necks within the range of osteopenia. Reviewed, Interpreted and Dictated by Kristi Bethea MD Transcribed by Pricilla Dorman Authenticated and [facility]
== END 2024-08-16 23:59 | disposition home or self-care (01) ==
LOC: RAD 15:58
PROVIDERS: PCP Family Medicine; Visit Provider Nurse Practitioner Obstetrics & Gynecology
DX: M85.88 Other specified disorders of bone density and structure, other site (principal); Z78.0 Asymptomatic menopausal state
CPT/HCPCS: 77080

== ENCOUNTER 2024-09-06 14:53 | Outpatient (CLI) | payer OTHER, SELFPAY ==
--- NOTE | 2024-09-06 14:54 | CT_ITS ---
FINAL REPORT CLINICAL HISTORY: lung cancer screening former smoker quit 5 years ago, smoked 1.5 ppd for 30 years copd and emphysema COMPARISON: 07/27/2023 FINDINGS: CT CHEST LOW DOSE SCREENING HISTORY: Screening exam for lung cancer. 64-year-old female, former smoker who quit 5 years ago, 45 pack year smoking history DOSE: CTDIvol: 2.90 mGy, DLP: 96.90 mGy*cm COMPARISON: 07/27/2023. TECHNIQUE: Axial CT without IV contrast administration using low dose protocol. This study was performed with techniques to keep radiation doses as low as reasonably achievable, (ALARA). Individualized dose reduction techniques using automated exposure control or adjustment of mA and/or kV according to the patient's size were employed. FINDINGS: No acute lung disease is present . Changes of emphysema are present. There is evidence of old calcified granulomatous disease. Mild scar is present in the right middle lobe. No pulmonary lesions are seen suspicious for neoplasm. No pleural or pericardial effusion is seen . No adenopathy or mass lesion is present . IMPRESSION: Changes of emphysema are present, without pulmonary lesions suspicious for neoplasm. LUNG RADS CATEGORY 1 RECOMMENDATION: 12 month LDCT follow up Reviewed, Interpreted and Dictated by Micah Aj MD Transcribed by Gabrielle Mercado Authenticated and [facility]
== END 2024-09-06 23:59 | disposition home or self-care (01) ==
LOC: RAD 14:54
PROVIDERS: PCP Family Medicine; Visit Provider Internal Medicine Pulmonary Disease
DX: F17.210 Nicotine dependence, cigarettes, uncomplicated (principal)
CPT/HCPCS: 71271

== ENCOUNTER 2024-12-07 15:18 | Outpatient (CLI) | payer OTHER, SELFPAY ==
--- NOTE | 2024-12-07 15:19 | CT_ITS ---
FINAL REPORT TECHNIQUE: Multiple axial CT sections were performed through the face without IV contrast. Coronal and sagittal reconstruction images were performed. This study was performed with techniques to keep radiation doses as low as reasonably achievable (ALARA). Individualized dose reduction techniques using automated exposure control or adjustment of mA and/or kV according to the patient's size were employed. CLINICAL HISTORY: chronic sinusitis COMPARISON: None FINDINGS: CT SINUSES: There is significant mucosal thickening in the maxillary sinuses bilaterally, greater on the right than on the left, measuring up to 16 mm in thickness in the right maxillary sinus. Postoperative changes are noted in the ethmoid and maxillary sinuses. Bilateral turbinectomies have been performed. There is an air-fluid level in the right maxillary sinus consistent with acute sinusitis superimposed on chronic. The frontal and sphenoid sinuses are clear. There is minimal nasal septal deviation. IMPRESSION: Sinusitis with chronic drainage path patent in the maxillary and ethmoid air cells. Air-fluid level in the right maxillary sinus consistent with acute sinusitis imposed on chronic. Reviewed, Interpreted and Dictated by Micah Aj MD Transcribed by Gabrielle Mercado Authenticated and [facility]
== END 2024-12-07 23:59 | disposition home or self-care (01) ==
LOC: RAD 15:19
PROVIDERS: PCP Family Medicine; Visit Provider Otolaryngology
DX: J32.9 Chronic sinusitis, unspecified (principal)
CPT/HCPCS: 70486

== ENCOUNTER 2025-01-23 12:42 | Outpatient (CLI) | payer OTHER, SELFPAY ==
[2025-01-23 12:47] VITALS: BMI 17.3
--- NOTE | 2025-01-23 13:17 | ECG_ITS ---
APPROVED REPORT Exam: Resting ECG HR:70 bpm ECG Measurements Heart Rate 70 AXES NV 137 P 55 QRSd 73 QRS 66 QT 393 T 65 QTc 414 Conclusion SINUS RHYTHM NONSPECIFIC T-WAVE ABNORMALITY BORDERLINE ECG UNCONFIRMED REPORT Electronically signed by : Blake Childs MD 01/28/2025 06:43:08
--- NOTE | 2025-01-23 13:22 | XR_ITS ---
FINAL REPORT CLINICAL HISTORY: Post op examination COMPARISON: None FINDINGS: PA and lateral views of the chest are obtained. There is no prior exam for comparison. The cardiac and mediastinal silhouettes are within normal limits. There is evidence of prior granulomatous disease. Hyperinflation is present. There is no pleural effusion, pneumothorax, or acute osseous abnormality. Thoracolumbar scoliosis is present. IMPRESSION: No radiographic evidence of acute cardiac or pulmonary disease. Reviewed, Interpreted and Dictated by Kristi Bethea MD Transcribed by Gabrielle Mercado Authenticated and [facility]
[2025-01-23 13:34] LABS: Basophils # 0.1 K/mm3 (0-0.2); Basophils % 1.1 % (0.1-2.0); Eosinophils # 0.3 Kmm3 (0.0-0.4); Eosinophils % 4.5 % (0.1-12.0); Hematocrit 38.4 % (37.0-47.0); Hemoglobin 12.8 g/dL (12.2-16.2); Immature Granulocytes # 0.01 10^3uL; Immature Granulocytes % 0.1 %; Lymphocytes # 1.7 K/mm3 (0.7-4.5); Lymphocytes % 22.5 % (10-50); Mean Corpuscular HGB Conc 33.3 g/dL (31.8-35.4); Mean Corpuscular Hemoglobin 32.1 pg (27.0-31.2); Mean Corpuscular Volume 96.2 fl (81-99); Mean Platelet Volume 9.6 fl (7.4-10.4); Monocytes # 0.7 K/mm3 (0.1-1.0); Monocytes % 9.8 % (1.7-9.3); Neutrophils # 4.7 K/mm3 (1.8-7.8); Nucleated Red Blood Cells # 0 10^3/uL; Nucleated Red Blood Cells % 0 %; Platelet Count 411 K/mm3 (142-424); Red Blood Count 3.99 M/mm3 (4.20-5.40); Red Cell Distribution Width 14.1 % (11.5-17.5); Red Cell Distribution Width-SD 49.7 fL; White Blood Count 7.5 K/mm3 (4.8-10.8)
[2025-01-23 13:48] LABS: Chloride 104 mmol/L (98-107)
[2025-01-23 13:49] LABS: Potassium 3.7 mmoL/L (3.5-5.1); Sodium 135 mmol/L (136-145)
[2025-01-23 13:52] LABS: Anion Gap 7.7 mEq/L (5-15); Blood Urea Nitrogen 9 mg/dl (7-17); Calcium 8.9 mg/dl (8.4-10.2); Carbon Dioxide 27 mmol/L (22.0-30.0); Creatinine Clearance Estimated 42 mL/min (50-200); Estimated Glomerular Filt Rate 72 ml/min (>60); GFR (African American) 87 ML/MIN (>60); Glucose 107 mg/dl (74-100)
== END 2025-01-23 23:59 | disposition home or self-care (01) ==
LOC: PREOP 12:43
PROVIDERS: PCP Family Medicine; Visit Provider Otolaryngology
DX: R94.31 Abnormal electrocardiogram [ECG] [EKG] (principal); Z09 Encounter for follow-up examination after completed treatment for conditions other than malignant neoplasm
CPT/HCPCS: 71046; 80048; 85025; 93005

== ENCOUNTER 2025-01-29 07:56 | Day surgery (SDC) | payer OTHER, SELFPAY ==
[2025-01-23 14:10] VITALS: BMI 17.3
[2025-01-29] VITALS (11 sets, daily range): BP systolic 109–148; BP diastolic 71–107; PULSE 70–81; RESP 16–18; TEMP 35.9–36.8; O2SAT 93–96
--- NOTE | 2025-01-29 08:34 | P.PNANES_ITS ---
[facility] Disclaimer: The information contained in this section may have been updated after the patient was seen, as this information can be updated by other users. Medical History Chronic sinus infection She has had persistent drainage and has not done well with amoxicillin. I made a switch to doxycycline and have her follow-up with us. I would like to start on probiotics for GI issues. 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 Pulmonary emphysema Allergic rhinitis Encounter for screening for malignant neoplasm of lung History of smoking 30 or more pack years Constipation Migraine COPD (chronic obstructive pulmonary disease) Asthma Allergies Hearing Loss Surgical History History of toe surgery History of surgery on wrist History of partial hysterectomy History of tonsillectomy History of back surgery Family History (Updated 01/23/25 @ 12:59 by Iván Cervantes RN) Other Cancer No family history of COPD Social History (Updated 01/23/25 @ 13:00 by Iván Cervantes RN) Smoking Status: Former smoker alcohol intake: never substance use type: denies use current occupational status: retired Travel in the last 8 weeks?: None household members: spouse housing: house current occupational exposures/hazards: No caffeine: Yes Have you lived/traveled outside US in past 30 days?: No Contact w/someone who lives/traveled outside US past 30 days?: No Exposure to someone with infectious disease in past 14 days?: No Do you have a fever (greater than 100.4 F or 38 C)?: No Have you tested positive for COVID-19?: No Exposed to someone with COVID-19 in past 14 days?: No Do you have a sore throat?: No Do you have a cough?: No Do you have any weakness?: No Do you have any diarrhea?: No Are you experiencing any unusual bleeding?: No Do you have any muscle aches/pain?: No Do you have any abdominal pain?: No Are you experiencing loss of taste or smell?: No [facility] Anesthesia Checklist Patient Identification Patient Identification: Arm Band Structural Data Admitted From: Home Planned Operative Procedure/s: Image Guided Endoscopic Sinus Surgery Consent for Planned Operative Procedure(s) Verified: Yes Verified Documents: Surgical Consent and History and Physical NPO Status Verified Time NPO: 00:00 Additional verifications Anesthesia Reactions: No Hx Blood Transfusions: No Blood Transfusion Reaction: No Airway Assessment Mallampati Score:: Class I C-Spine Mobility Assessed: Yes TMJ Mobility Assessed: Yes Dentition: Good Dentition Neurological Assessment Level of Consciousness: Awake, Alert and Appropriate Anesthesia Plan Anesthesia Risk discussed: Yes Anesthesia Plan: Verified ASA Class: II Anesthesia Type: General
[2025-01-29] MEDS: OXYMETAZOLINE NASAL SPRAY 0.05% 15ML 15 ML NS (10:00)
[2025-01-29] MEDS: CEFAZOLIN SODIUM 2 GM in 0.9 % SODIUM CHLORIDE 100 ML IV (10:00)
[2025-01-29] MEDS: LIDOCAINE 1% W/EPI 1:100,000 20ML VIAL 20 ML (10:00)
--- NOTE | 2025-01-29 10:58 | EXP.OP.NOTE ---
Date of procedure: 01/29/25 Pre-op Diagnosis:: Chronic sinusitis Post-op Diagnosis:: Same Procedure performed:: Bilateral endoscopic frontal ethmoidectomy Bilateral endoscopic middle meatal antrostomy Bilateral endoscopic sphenoidotomy with tissue removal Use of the image guided system. Surgeon:: Thierry Tilley III, MD Skilled Nursing Professional(s):: none FRONT END SOFTWARE DEVELOPER:: Gregg Vidal Anesthesia: GETA Estimated blood loss (mL): 20 Operative findings:: Evidence of polypoid degeneration of sinuses, right maxillary chronic inflammatory change suspicious of fungal sinusitis Operative note:: The patient was brought to the operating placed for general inhalational anesthetic with IV sedation and converted to endotracheal anesthesia. Topical Afrin and lidocaine was applied on cottonoids and placed within the nasal cavity. The image guided system was then calibrated and gave us good feedback throughout the case. The nose was paired draped in usual fashion. I began injection of 1% lidocaine with epinephrine to the lateral nasal ross along with the posterior septal mucosa. It was noted that she had a previously operated sinus cavity bilaterally with evidence of a small perforation of the septum posteriorly. I remove the cottonoids from the left side of the nose. Further injection was carried out along the uncinate process and the lateral nasal wall. Under endoscopic and image guidance, I was able to debride the polypoid changes noted throughout the ethmoid sinus on the left. Extended this back to the sphenoid which was inflamed as well. There are some polypoid degeneration anterior to the sphenoid which was cleared the sinus appear to be healthy. This point I was unable to advance an image guided frontal sinus balloon within that the frontal recess on the left. This was inflated. After the balloon was inflated, I removed some polypoid tissue from the opening of the sinus. A nova pack was then placed within the left middle meatal area and infiltrated with 1% lidocaine with epinephrine solution. Mupirocin ointment was used as a topical dressing within the left side of the nose. We then began the dissection on the right side. It was evident that within the right maxillary sinus there is a fairly generous middle antrostomy through which I removed a large amount of polypoid tissue that appeared to be fungal in nature. Also remove the lining of the sinus to try to prevent recurrence. Attention was then turned towards the ethmoid sinuses which were exonerated using a microdebrider this did extend back to the sphenoid sinus which was cleared of any polypoid debris. Nasofrontal balloon was then introduced into the right nasofrontal area this was inflated. Again some polypoid tissue was removed from the nasofrontal recess which had obstructed the sinus. A nova pack was then placed on the right side followed by mupirocin ointment. Patient's stomach contents were aspirated clear. She was then awakened in the operating room and taken to the recovery in good condition. Condition: stable Disposition: PACU Specimens:: Cultures from the right maxillary sinus and polypoid material from the other sinuses. Complications:: None
--- NOTE | 2025-01-29 11:03 | EXP.ANES.I ---
[facility] Anesthesia Record Part I Anesthesia Record I Intake, IV Amount: 850 Hydration: Adequate Estimated blood loss (mL): 5 Urine output (mL): 0 Blood Products used (#): none Blood Pressure: 144/86 SaO2: 96 Pulse Rate: 72 Airway Patency: Patent Respiratory Rate: 18 Temperature: 98.2 F Patient is:: Drowsy and Stable Stable to PACU at:: 10:56
--- NOTE | 2025-01-29 15:13 | P.PNANES_ITS ---
[facility] Anesthesia Record Part I Anesthesia Record I Intake, IV Amount: 750 Hydration: Adequate Estimated blood loss (mL): 15 Urine output (mL): 0 Blood Products used (#): none Blood Pressure: 145/107 SaO2: 93 Pulse Rate: 81 Airway Patency: Patent Respiratory Rate: 16 Temperature: 96.6 F Patient is:: Drowsy and Stable Stable to PACU at:: 15:03
--- NOTE | 2025-01-29 16:04 | P.PNANES_ITS ---
[facility] Anesthesia Record Part II Anesthesia Record Part II Discharge Time: 11:26 Destination: Surgical Day Care (OP Surgery) PACU nurse assessment reviewed?: Yes Patient Condition:: Good Anesthesia Complications:: None Swallowing reflex intact?: Yes Airway Patency: Patent Cyanosis?: No Blood Pressure: 142/79 SaO2: 95 Respiratory Rate: 16 Pulse Rate: 72 Temperature: 97.5 F Mental Status: Alert & Oriented Pain level:: 0 Nausea and/or vomitting:: None Intake, IV Amount: 0 Hydration: Adequate
== END 2025-01-29 12:00 | disposition home or self-care (01) ==
PROVIDERS: PCP Family Medicine; Visit Provider Otolaryngology
PROC: (CPT 31255; principal; 2025-01-29 09:30)
DX: J32.9 Chronic sinusitis, unspecified (principal); Z87.891 Personal history of nicotine dependence
CPT/HCPCS: 31255; 31267; 31288; 61782; 87102; 87206; 96374; C1726; J0690; J1100; J2250; J2405; J3010

== ENCOUNTER 2025-06-11 12:51 | Outpatient (CLI) | payer OTHER, SELFPAY ==
--- OUTSIDE RECORDS SUMMARY | 2024-08-29 06:00 | XMS_ITS ---
Author Organization [facility] Address 1210 [facility] [address] [place] [id number] Care Team Providers Care Senior Portfolio Analyst Name Role Phone Griselda Duarte Primary Care [...] 08/29/2024 Encounters Encounter Location Date Provider Diagnosis A-[place] [address] [id number] 08/29/2024 Griselda Duarte Chronic pain syndrom e [...] [address], [place], [place], [phone], Progress Notes * CLAUDIAGLORIA TITAB:1960 ( 64 yo F)Acc No.[id number]:08/29/2024 Progress Notes Patient: KATIE HILLS Provider: Griselda Duarte M.D. :1960 A ge:64 Y S ex:Female Date:08/29/2024 Address:[address] [place] [address] KATI AMEZQUITA, [id number] Subjective: * Chief Complaints: * 1 . [...] a recent bone density test by her DESIGN DRAFTSMAN. Please refer to copy in chart. 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 Cevallos, Declines all immunizations [...] 01/2014, ORIF bilateral distal radial fractures @ [facility]-Dr Goodman 02/21/2014, plate removed [...] * Images: Billing Information: * Visit Code: 79147 Office Visit, Est Pt., Level 3. * Procedure Codes: 62888 INCISION AND DRAINAGE OF ABSCESS,CYST,CARBUNCLE,PARONYCHIA SIMPLE. * Electronic signature of Griselda Duarte MD on 06/11/2025 at 12:54 PM EDT Sign off status: Pending * Provider: Griselda Duarte M.D. Date: 1 10/30/2023 Generated for Garth naidu/Lorene/Johnitting on: 0 06/11/2025 12:54 PM EDT History and Physical Notes * HPI (History [...]
--- OUTSIDE RECORDS SUMMARY | 2024-09-01 12:00 | XMS_ITS ---
Author Organization [facility] Address 12[address] [facility] [address] [place] [phone] Care Team Providers Care Resistor Winder Name Role Phone Griselda Duarte Primary Care Provider [phone] Gibson Morgan Unavailable [phone] Allergies Allergen (clinical drug ingredient) Drug/Non Drug [...] Encounter Location Date Provider Diagnosis [facility] 36 [facility] [address] [place] [id number] 09/01/2024 Gibson Morgan Cellulitis of finger of [...] Provider Name:Griselda Ventura, 08/14/2025 01:30:00 PM, [address] [facility] 36 [facility], [address], [place], [phone], Progress Notes * CLAUDIATITA CASTROB:1960 ( 64 yo F)Acc No.[id number]:09/01/2024 Progress Notes Patient: KATIE HILLS Provider: Dusty Morgan M.D. 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 * Procedure Codes: * Electronic signature of Trudi Morgan MD on 06/11/2025 at 12:53 PM EDT Sign off status: Pending * Provider: Dusty Morgan M.D. Date: 1 11/02/2023 Generated for Garth naidu/Lorene/Johnitting on: 0 06/11/2025 12:53 PM EDT History and Physical Notes * [...]
--- OUTSIDE RECORDS SUMMARY | 2024-10-26 09:45 | XMS_ITS ---
Author Organization [facility] Address 1210 [facility] [address] [place] [id number] Care Team Providers Care Compression Molding Machine Operator Name Role Phone Griselda Duarte Primary Care [...] W/U Status Risk Notes Problem Chronic bronchitis (97427197) Chronic bronchitis (J42) Active confirmed Vital Signs Blood pressure systolic 128 mm Hg 10/26/19 25 Blood pressure diastolic 70 mm Hg 025 Heart Rate 70 /min 10/26/2024 Height 65.50 in 10/26/2024 Weight 103.8 lbs 10/26/2024 BMI 17.01 kg/m2 10/26/2024 Encounters Encounter Location Date Provider Diagnosis [place] 1210 [facility] 36 [facility] [address] [place] [id number] 10/26/2024 Griselda Duarte Chronic bronchitis J 42 [...] Name:Griselda Ventura, 08/14/2025 01:30:00 PM, [address] [place] [facility] 36 [facility], [address], [place], [id number], Progress Notes * SUSIE BENNETT:1960 ( 64 yo F)Acc No.[id number]:10/26/2024 Progress Notes Patient: KATIE HILLS Provider: Griselda Duarte M.D. :1960 A ge:64 Y S ex:Female Date:10/26/2024 Address:[facility] [id number] Subjective: * Chief Complaints: * 1 . 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 Cevallos, Declines all immunizations [...] 01/2014, ORIF bilateral distal radial fractures @ [facility]-Dr Goodman 02/21/2014, plate removed from left [...] * Images: Billing Information: * Visit Code: 64297 Office Visit, Est Pt., Level 3. * Procedure Codes: 42411 PULSE OX. 3074F SYST BP LT 130 MM HG. 3078F DIAST BP < 80 MM HG. * Electronic signature of Griselda Duarte MD on 06/11/2025 at 12:53 PM EDT Sign off status: Pending * Provider: Griselda Duarte M.D. Date: 0 10/26/2024 Generated for Garth naidu/Lorene/Sheeba on: 0 06/11/2025 12:53 PM EDT History [...]
--- OUTSIDE RECORDS SUMMARY | 2025-02-08 10:00 | XMS_ITS ---
Author Organization [facility] Address [address] [facility] [address] [place] [phone] Care Team Providers Care Printed Circuit Boards Inspector Name Role Phone Griselda Duarte Primary Care Provider [phone] Allergies Allergen (clinical drug ingredient) Drug/Non Drug [...] Location Date Provider Diagnosis [place] [address] [facility] [address] [place] [phone] 02/08/2025 Griselda Duarte Chronic pain syndrom e [...] [address], [place], [phone], Medications Administered Medication Instructions Date of Administration Dosage Notes B-12 02/08/2025 1 mL Progress Notes * TITA BENNETTB:1960 ( 64 yo F)Acc No.[id number]:02/08/2025 Progress Notes Patient: KATIE HILLS Provider: Griselda Duarte M.D. 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 Modifiers: 25 * Procedure Codes: J3420 12. 44035 ADMINISTRATION OF INJECTION. G8783 BP SCR PRFRM RCMDD DEFIND SCR INTVL. 3074F SYST BP LT 130 MM HG. 3078F DIAST BP < 80 MM HG. * Electronic signature of Griselda Duarte MD on 06/11/2025 at 12:53 PM EDT Sign off status: Pending * Provider: Griselda Duarte M.D. Date: 0 02/08/2025 Generated for Linnettei elysia/Lorene/eTransmitting on: 0 06/11/2025 12:53 PM EDT History [...]
--- OUTSIDE RECORDS SUMMARY | 2025-05-10 07:00 | XMS_ITS ---
Author Organization [facility] Address [address] [facility] [address] [place] [phone] Care Team Providers Care Hat Forming Machine Feeder Name Role Phone Griselda Duarte Primary Care Provider [phone] Allergies Allergen (clinical drug ingredient) Drug/Non Drug [...] Provider Diagnosis [place] [address] [place] [id number] 05/10/2025 Griselda Duarte Chronic pain syndrom e [...] 08/14/2025 01:30:00 PM, [address] [facility], [address], [place], [place], [id number], Progress Notes * TITA BENNETTB:1960 ( 64 yo F)Acc No.[id number]:05/10/2025 Progress Notes Patient: KATIE H[place]S Provider: Griselda Duarte M.D. :1960 A ge:64 Y S ex:Female Date:05/10/2025 Address:[address] [place] [address] [place], [id number] Subjective: * Chief Complaints: * 1 . [...] Ventura has closed his Allergy practice in [place] and she has not established care with a new healthcare interpreter. 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 Refill [...] * Images: Billing Information: * Visit Code: 54647 Office Visit, Est Pt., Level 4. * Procedure Codes: * Electronic signature of Griselda Duarte MD on 06/11/2025 at 12:53 PM EDT Sign off status: Pending * Provider: Griselda Duarte M.D. Date: 0 05/10/2025 Generated for Garth naidu/Lroene/Johnitting on: 0 06/11/2025 12:53 PM EDT History [...]
--- NOTE | 2025-06-11 12:54 | XR_ITS ---
FINAL REPORT TECHNIQUE: Bone densitometry calculations of the lumbar spine and bilateral hips were obtained. CLINICAL HISTORY: SCREENING COMPARISON: None FINDINGS: Using L1-4, the bone mineral density of the spine is 1.304 g/cm2, corresponding to T-score of 2.3 and a Z score of 4.1. This is within the range of normal. Using the left hip, the bone mineral density of the femoral neck is 0.567 g/cm2, corresponding to a T-score of -2.5 and a Z-score of -1.0. This is within the range of osteoporosis. Using the right hip, the bone mineral density of the femoral neck is 0.695 g/cm?, corresponding to a T-score of -2.0 and a Z-score of -0.8. This is within the range of osteopenia. NOTE: T-score: Standard deviation compared with peak bone mass of young adult mean. *Following the recommendations of the International Society of Bone densitometry, classification of hip BMD is based on the lower of two T-scores; total hip or femoral neck. IMPRESSION: 1. Bone mineral density of the lumbar spine within the range of normal, although this may be falsely elevated secondary to bony sclerosis. 2. Bone mineral density of the left femoral neck within the range of osteoporosis. 3. Bone mineral density of the right femoral neck within the range of osteopenia. Reviewed, Interpreted and Dictated by Kristi Bethea MD Transcribed by Gabrielle Mercado Authenticated and . [facility]
--- OUTSIDE RECORDS SUMMARY | 2025-06-11 12:54 | XMS_ITS | Patient Health Record ---
[facility] Organization [facility] Address [address] [facility] [address] [place] [id number] Care Team Providers Care Health Promotion Manager Name Role Phone Griselda Duarte Primary Care Provider Cathy Gibson Min [phone] Allergies Allergen (clinical drug ingredient) Drug/Non Drug Allergy documented on EMR Reaction Allergy Type Onset Date Status Non-steroidal anti-inflammatory agent (FN) NSAIDs stomach cramping Drug Allergy Active Results Component Value Reference Range Notes PORFIRIO Reviewed date:07/18/2024 12:07:10 PM Interpretation: Performing Lab: Notes/Report: Medications Medication SIG (Take, Route, Frequency, Duration) Notes Start Date End Date Status HYDROcodone-Acetaminoph en 7.5-325 MG 1 tab(s) orally four times a day as needed 05/18/2025 Active MS Contin 60 MG 1 tab(s) orally ever y 12 hours 05/18/2025 Active Topamax 100 MG 1 tablet Orally [...] 1 tab(s) orally at bedtime 08/24/2023 Active Spiriva Respimat 2.5 MCG/ACT 2 puffs Inhalation Once a day; Duration: 30 days Active ProAir Digihaler 108 (90 Base) MCG/ACT 2 puff(s) inhaled 4 times a day 07/15/2012 Active Advair Diskus 500-50 MCG/ACT 1 puff(s) inhaled BID Active Mometasone Furoate 50 MCG/ACT 2 spray(s) intranasally once a day; Duration: 30 day(s) Not-Taking Fasenra 30 MG/ML as directed subcutaneously every 8 weeks Not-Taking Amoxicillin-Pot Clavulanate 875-125 MG 1 tablet Orally Two times a day 10/26/2024 Not-Taking Immunizations Vaccine Route Administration Date Status Comme nts Fluzone Intradermal Quad private(18-64yrs) ID Intradermal 06/10/2016 Administered Fluzone Quad (6months&older) IM Intramuscular 05/21/2015 Administered Fluzone Quad (6months&older) IM Intramuscular 07/05/2017 Administered Fluzone Quad (6months&older) IM Intramuscular 2018 Administered Given by PAT Fluzone Quad (6months&older) IM Intramuscular 06/13/2019 Administered Fluzone Quad (6months&older) IM Intramuscular 05/23/2020 Administered Fluzone Quad (6months&older) IM Intramuscular 07/07/2021 Administered Hepatitis A (adult) Unknown 01/27/2019 Administered PNEUMOVAX 23 VACCINE IM Intramuscular 07/09/2008 Administe red PNEUMOVAX 23 VACCINE Unknown 04/08/2018 Pending PNEUMOVAX 23 VACCINE IM Intramuscular 2018 Administe red Given by PAT Prevnar (PCV13) IM Intramuscular 07/31/2014 Administered Shingrix Unknown 11/24/2020 Administered Shingrix Unknown 01/24/2021 Administered Tetanus Tdap-Adacel (over 7yrs) IM Intramuscular 08/16/2012 Administered xAdministration of injection IM Intramuscular 08/03/2016 Administered xFlu shot-36 months and older IM Intramuscular 07/24/2006 Administered xFlu shot-36 months and older IM Intramuscular 06/29/2007 Administered xFlu shot-36 months and older IM Intramuscular 07/02/2008 Administered xFlu shot-36 months and older IM Intramuscular 06/23/2010 Administered xFlu shot-36 months and older IM Intramuscular 06/05/2011 Administered xFluzone (6mos and older)-trivalent ID Intradermal 06/20/2014 Administered xFluzone Intradermal (18-64yrs)-trivalent ID Intradermal 06/15/2012 Administered xFluzone Intradermal (18-64yrs)-trivalent ID Intradermal 06/29/2013 Administered Morphine 10mg/ml IM Intramuscular 05/25/2006 Administered Social History Tobacco Use: Social History Observation Description Date Details (start date - stop date) Former Smoker NA - NA CURRENT TOBACCO USE: Question Answer Notes Are you a: former smoker Problems Problem Type SNOMED Code ICD Code Onset Dates Problem Status W/U Status Risk Notes Problem Insomnia (354528962) Insomnia (G47.00) Active confirmed Problem Solitary nodule of lung (807552213) Lung nodule (R91.1) Active confirmed Problem Anxiety (99637952) Anxiety (F41.9) Active confirmed Problem Osteopenia (218115086) Osteopenia (M85.80) Active confirmed Problem Seasonal allergy (296014458) Seasonal allergies (J30.2) Active confirmed Problem Cervicalgia (20459726) Cervicalgia (M54.2) Active confirmed Problem Primary insomnia (1249317) Primary insomnia (F51.01) Active confirmed Problem Chronic pain syndrome (116891747) Chronic pain syndrome (G89.4) Active confirmed Problem Allergic rhinitis (03865638) Allergic rhinitis, unspecified (J30.9) Active confirmed Problem Panlobular emphysema (5260467) Panlobular emphysema (J43.1) Active confirmed Problem Vaccination given (330294823) Encounter for immunization (Z23) Active confirmed Problem Migraine (00764860) Migraine without status migrainosus, not intractable, unspecified migraine type (G43.909) Active confirmed Problem Osteoporosis (57462690) Osteoporosis (M81.0) Active confirmed Problem Chronic bronchitis (97878573) Chronic bronchitis (J42) Active confirmed Problem Dyslipidemia (621637175) Dyslipidemia (E78.5) Active confirmed Problem Tobacco use (194273176) Tobacco use disorder (F17.200) Active confirmed Problem 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 Problem Allergic rhinitis (66790369) Non-seasonal allergic rhinitis, unspecified trigger (J30.89) Active confirmed Vital Signs Heart Rate 70 /min 10/26/2024 Blood pressure diastolic 70 mm Hg 05/10/2025 Height 65.50 in 05/10/2025 Blood pressure systolic 100 mm Hg 05/10/2025 Weight 106.2 lbs 05/10/2025 BMI 17.4 kg/m2 05/10/2025 Encounters Encounter Location Date Provider Diagnosis Kori [address] [place] [address] [place] [id number] 07/27/2024 R Coy Gerald Chronic pain syndrom e G89.4 ; Cervicalgia M54.2 ; Former smoker Z87.891 and Allergic rhinitis, unspecified J30.9 [facility] [address] [place] [address] [place] [id number] 08/29/2024 R Coy Gerald Chronic pain syndrom e G89.4 ; Abscess L02.91 ; Cervicalgia M54.2 and Osteopenia M85.80 [facility] [address] [place] [address] [place] [id number] 09/01/2024 Gibson [place] Cellulitis of finger of right hand L03.011 [facility] [address] [place] [address] [place] [id number] 10/26/2024 R Coy Gerald Chronic bronchitis J 42 ; Chronic pain syndrome G89.4 ; Cervicalgia M54.2 and Osteopenia M85.80 [facility] [address] [place] [address] [place] [id number] 02/08/2025 R Coy Gerald Chronic pain syndrom e G89.4 ; Cervicalgia M54.2 ; Osteopenia M85.80 ; Fatigue R53.83 ; Tobacco use disorder F17.200 and Osteoporosis M81.0 [facility] [address] [place] [address] [place] [id number] 05/10/2025 R Coy Gerald Chronic pain syndrom e G89.4 ; Cervicalgia M54.2 ; Osteopenia M85.80 ; Fatigue R53.83 ; Tobacco use disorder F17.200 ; Osteoporosis M81.0 ; Chronic obstructive pulmonary disease, unspecified J44.9 and Dyslipidemia E78.5 [facility] [address] [place] [id number] 07/17/2024 R Coy Gerald Chronic pain syndrom e G89.4 and Cervicalgia M54.2 [facility] [address] [place], [place] [id number] 10/13/2024 R Coy Gerald Cervicalgia M54.2 an d Chronic pain syndrome G89.4 [facility] [address] [place] [id number] 11/15/2024 R Coy Gerald Chronic pain syndrom e G89.4 and Cervicalgia M54.2 [facility] [address] [place], [place] [id number] 11/16/2024 R Coy Gerald [facility] [address] [place], [place] [id number] 12/11/2024 R Coy Gerald Chronic pain syndrom e G89.4 and Cervicalgia M54.2 [facility] [address] [place] [id number] 03/19/2025 R Coy Gerald Chronic pain syndrom e G89.4 and Cervicalgia M54.2 [facility] [address] [place], [place] [id number] 04/19/2025 R Coy Gerald Chronic pain syndrom e G89.4 and Cervicalgia M54.2 [facility] [address] [place] [id number] 05/17/2025 R Coy Gerald Chronic pain syndrom e G89.4 and Cervicalgia M54.2 [facility] [address] [place], [place] [id number] 05/25/2025 R Coy Gerald Assessments Encounter Date Diagnosis (ICD Code) Assessment Notes Treatment Notes Treatment Clinical Notes Section Notes 07/17/2024 Chronic pain syndrome (ICD-10 - G89.4) 07/27/2024 Chronic pain syndrome (ICD-10 - G89.4) 08/29/2024 Chronic pain syndrome (ICD-10 - G89.4) 08/29/2024 Abscess (ICD-10 - L02.91) 09/01/2024 Cellulitis of finger of right hand (ICD-10 - L03.011) 10/13/2024 Cervicalgia (ICD-10 - M54.2) 10/26/2024 Chronic pain syndrome (ICD-10 - G89.4) 10/26/2024 Chronic bronchitis (ICD-10 - J42) 11/15/2024 Chronic pain syndrome (ICD-10 - G89.4) 12/11/2024 Chronic pain syndrome (ICD-10 - G89.4) 02/08/2025 Cervicalgia (ICD-10 - M54.2) 02/08/2025 Chronic pain syndrome (ICD-10 - G89.4) 03/19/2025 Chronic pain syndrome (ICD-10 - G89.4) 04/19/2025 Chronic pain syndrome (ICD-10 - G89.4) 05/10/2025 Chronic pain syndrome (ICD-10 - G89.4) 05/17/2025 Chronic pain syndrome (ICD-10 - G89.4) 05/17/2025 Cervicalgia (ICD-10 - M54.2) 05/10/2025 Cervicalgia (ICD-10 - M54.2) 03/19/2025 Cervicalgia (ICD-10 - M54.2) 04/19/2025 Cervicalgia (ICD-10 - M54.2) 02/08/2025 Osteopenia (ICD-10 - M85.80) Continue her calcium and vitamin D with plans to repeat DEXA scan in 2 years. 12/11/2024 Cervicalgia (ICD-10 - M54.2) 11/15/2024 Cervicalgia (ICD-10 - M54.2) 10/13/2024 Chronic pain syndrome (ICD-10 - G89.4) 07/27/2024 Former smoker (ICD-10 - Z87.891) 08/29/2024 Cervicalgia (ICD-10 - M54.2) 10/26/2024 Cervicalgia (ICD-10 - M54.2) 07/27/2024 Cervicalgia (ICD-10 - M54.2) 07/17/2024 Cervicalgia (ICD-10 - M54.2) 07/27/2024 Allergic rhinitis, unspecified (ICD-10 - J30.9) 08/29/2024 Osteopenia (ICD-10 - M85.80) She informs me that she likely will not take the medication. She is advised otherwise and to also continue her calcium and vitamin D with plans to repeat DEXA scan in 2 years. 10/26/2024 Osteopenia (ICD-10 - M85.80) Continue her calcium and vitamin D with plans to repeat DEXA scan in 2 years. 02/08/2025 Fatigue (ICD-10 - R53.83) 05/10/2025 Osteopenia (ICD-10 - M85.80) Continue her calcium and vitamin D with plans to repeat DEXA scan in 2 years. 05/10/2025 Fatigue (ICD-10 - R53.83) 02/08/2025 Tobacco use disorder (ICD-10 - F17.200) 05/10/2025 Tobacco use disorder (ICD-10 - F17.200) 02/08/2025 Osteoporosis (ICD-10 - M81.0) 05/10/2025 Osteoporosis (ICD-10 - M81.0) 05/10/2025 Chronic obstructive pulmonary disease, unspecified (ICD-10 - J44.9) 05/10/2025 Dyslipidemia (ICD-10 - E78.5) 07/27/2024 Other She is advised to only take controlled medications that are prescribed by this office and is advised to discard any old medication she has at home. Plan to repeat urine drug screen at next office visit. Plan Of Treatment Pending Test Test Name Order Date Bone density 05/10/2025 Bone density 05/15/2025 CT Scan : Chest, low dose 05/10/2025 H-Lipid Panel 05/10/2025 H-CMP 05/10/2025 Next Appt Details Provider Name:Griselda Ventura, 08/14/2025 01:30:00 PM, [address], [place], [place], [id number], Insurance Providers Payer Name Payer Address Payer Phone Subscriber Number Group Number Insured Name Patient Relationship to Insured Coverage Start Date Coverage End Date [facility] O NILES [id number] YARELI NCAMY [id number] KATIE MARTINEZ Self - patient is the insured Medications Administered Medication Instructions Date of Administration Dosage Notes allergy 04/16/2008 0.50 allergy 04/16/2008 0.50 allergy 04/19/2008 0.5 allergy 04/19/2008 0.5 allergy 11/12/2015 0.40 mL allergy 11/12/2015 0.40 mL allergy 12/21/2015 0.10 mL allergy 12/21/2015 0.10 mL allergy 06/10/2016 0.05 mL allergy 06/10/2016 0.05 mL allergy 07/06/2016 0.20 mL allergy 07/06/2016 0.20 mL allergy 07/24/2016 0.30 mL allergy 07/24/2016 0.30 mL allergy 07/28/2016 0.35 mL allergy 07/28/2016 0.35 mL allergy 01/04/2017 0.50 mL allergy 01/04/2017 0.50 mL allergy 02/22/2017 0.5 mL allergy 02/22/2017 0.5 mL allergy 03/10/2017 0.50 mL allergy 03/10/2017 0.50 mL allergy 04/05/2017 0.50 mL allergy 07/05/2017 0.50 mL allergy 07/05/2017 0.50 mL allergy 12/31/2017 0.20 mL allergy 12/31/2017 0.20 mL allergy 2018 0.5 mL Given by MP allergy 2018 0.5 mL Given by MP allergy 10/07/2018 0.5 allergy 10/07/2018 0.5 mL allergy 11/10/2018 0.5 mg allergy 11/10/2018 0.5 mg allergy 12/09/2018 0.5 mg allergy 12/09/2018 0.5 mg allergy 10/17/2019 0.50 mg allergy 10/17/2019 0.50 mg allergy 05/23/2020 0.5 mL allergy 05/23/2020 0.5 mL allergy 10/01/2020 0.50 mg allergy 10/01/2020 0.50 mg allergy 12/17/2020 0.5 mg allergy 12/17/2020 0.50 mg allergy 02/12/2021 0.50 mL allergy 02/12/2021 0.50 mL allergy 06/17/2021 0.5 mL allergy 06/17/2021 0.5 mL allergy 07/07/2021 0.5 mL allergy 07/07/2021 0.5 mL allergy 06/16/2022 0.5 mL allergy 06/16/2022 0.5 mL allergy 09/04/2022 0.5 mL allergy 09/04/2022 0.5 mL B-12 02/08/2025 1 mL Depo- Medrol 40 mg/ml 05/21/2015 1.5 mL Dexamethasone 09/07/2017 1 mL Dexamethasone 11/18/2018 1 mL phenergan 25 mg/ml 05/25/2006 25 mg Dexamethasone 07/15/2012 Dexamethasone 01/14/2006 Dexamethasone 01/09/2006 1 mL Dexamethasone 05/23/2005 0.5 mL Dexamethasone 05/19/2005 1 mL Depo- Medrol 40 mg/ml 10/30/2014 1.5 mL Depo- Medrol 40 mg/ml 02/03/2007 1.5 mL allergy 06/22/2023 allergy 06/22/2023 allergy 04/08/2023 0.50 mL allergy 04/08/2023 .50 mL allergy 03/31/2023 0.50 mL Mix #2 in left arm allergy 03/31/2023 0.50 mL Mix #1 in Righ t arm allergy 03/12/2023 0.5 mL allergy 03/12/2023 0.5 mL allergy 02/19/2023 0.5 mL allergy 02/19/2023 0.5 mL allergy 01/22/2023 .50 mL Mix #1 right a rm allergy 01/22/2023 .50 mL Mix #2 Left ar m allergy 01/07/2023 0.50 mL allergy 01/07/2023 0.50 mL allergy 10/15/2022 allergy 10/15/2022 allergy 08/20/2022 0.2 mL allergy 08/20/2022 0.2 mL allergy 05/22/2022 0.50 mL allergy 05/22/2022 0.50 mL allergy 04/07/2022 0.5 mL allergy 04/07/2022 0.5 mL allergy 03/03/2022 0.5 mL allergy 03/03/2022 0.5 mL allergy 02/06/2022 0.5 mL allergy 02/06/2022 0.5 mL allergy 01/06/2022 0.35 mL allergy 01/06/2022 0.35 mL allergy 12/23/2021 Vial #2 0.20 m l SQ LA allergy 12/23/2021 0.20 mL Vial #1 0.20 M L RA allergy 11/20/2021 0.50 mL allergy 11/20/2021 0.50 mL allergy 10/07/2021 .50 mL allergy 10/07/2021 .50 mL allergy 09/10/2021 0.5 mL allergy 09/10/2021 0.5 mL allergy 09/10/2021 0.5 mL allergy 05/07/2021 0.5 mL allergy 05/07/2021 0.5 mL allergy 04/03/2021 0.5 mL allergy 04/03/2021 0.5 mL allergy 03/26/2021 0.35 mL allergy 03/26/2021 0.35 mL allergy 03/13/2021 0.20 mL Given by Alicia Triplett allergy 03/13/2021 0.20 mL Shot given by Alicia Triplett allergy 02/27/2021 0.5 mL allergy 02/27/2021 0.5 mL allergy 12/30/2020 0.50 mg allergy 12/30/2020 0.50 mg allergy 12/03/2020 0.5 mL allergy 12/03/2020 0.5 mL allergy 08/08/2020 0.35 mg allergy 08/08/2020 0.35 mg allergy 07/02/2020 0.20 mL allergy 07/02/2020 0.20 mL allergy 05/10/2020 0.50 mL allergy 05/10/2020 0.50 mL allergy 04/02/2020 0.50 mg allergy 04/02/2020 0.50 mg allergy 03/15/2020 0.50 mg allergy 03/15/2020 0.50 mg allergy 02/09/2020 0.50 mL allergy 02/09/2020 0.50 mL allergy 01/02/2020 0.35 mg allergy 01/02/2020 0.35 mg allergy 12/26/2019 0.20 allergy 12/26/2019 0.20 allergy 12/12/2019 0.50 mg allergy 12/12/2019 0.50 mg allergy 11/17/2019 0.50 mL allergy 11/17/2019 0.50 mL allergy 10/03/2019 0.50 mg allergy 10/03/2019 0.50 mg allergy 09/26/2019 .40 allergy 09/26/2019 .40 allergy 09/18/2019 0.30 mg allergy 09/18/2019 0.30 mg allergy 09/11/2019 0.20 mg allergy 09/11/2019 0.20 mg allergy 09/06/2019 0.10 mg allergy 09/06/2019 0.10 mg allergy 08/24/2019 0.50 mL allergy 08/24/2019 0.50 mL allergy 07/26/2019 allergy 07/26/2019 allergy 07/13/2019 0.50 allergy 07/13/2019 0.50 allergy 07/04/2019 0.50 mg allergy 07/04/2019 0.50 mg allergy 05/10/2019 0.5 mL allergy 05/10/2019 0.5 mL allergy 04/28/2019 0.50 mL allergy 04/28/2019 0.50 mL allergy 04/14/2019 0.35 mL allergy 04/14/2019 0.35 mL allergy 04/06/2019 0.5 mL allergy 04/06/2019 0.5 mL allergy 03/02/2019 0.20 mg allergy 03/02/2019 0.20 mg allergy 02/09/2019 0.5 mL allergy 02/09/2019 0.5 mL allergy 01/05/2019 0.50 mL allergy 01/05/2019 0.50 mL allergy 09/10/2018 0.5 mg allergy 09/10/2018 0.35 mg allergy 08/17/2018 0.2 mL allergy 08/17/2018 0.2 mL allergy 07/27/2018 0.5 mg allergy 07/27/2018 0.5 mg allergy 06/03/2018 0.5 mg allergy 06/03/2018 0.5 mg allergy 05/11/2018 0.50 mL allergy 05/11/2018 0.50 mL allergy 04/08/2018 0.50 mg allergy 04/08/2018 0.50 mg allergy 03/24/2018 0.5 mL allergy 03/24/2018 0.50 mL allergy 02/23/2018 0.50 mL allergy 02/23/2018 0.50 mL allergy 02/04/2018 0.50 mL allergy 02/04/2018 0.50 mL allergy 01/13/2018 0.50 mL allergy 01/13/2018 0.50 mL allergy 12/14/2017 0.50 mL allergy 12/14/2017 0.50 mL allergy 11/24/2017 0.5 mL allergy 11/24/2017 0.5 mL allergy 11/02/2017 0.50 mg allergy 11/02/2017 0.50 mg allergy 10/11/2017 0.5 mL allergy 10/11/2017 0.5 mL allergy 09/24/2017 0.50 mL allergy 09/24/2017 0.50 mL allergy 09/02/2017 0.50 mL allergy 09/02/2017 0.50 mL allergy 08/06/2017 0.35 mg allergy 08/06/2017 0.35 mg allergy 07/20/2017 0.2 mL allergy 07/20/2017 0.20 mL allergy 05/31/2017 0.50 mL allergy 05/31/2017 0.50 mL allergy 05/12/2017 0.50 mL allergy 05/12/2017 0.50 mL allergy 04/15/2017 0.50 mL allergy 04/15/2017 0.50 mL allergy 03/30/2017 0.5 mg allergy 03/30/2017 0.50 mg allergy 02/10/2017 0.35 mL allergy 02/10/2017 0.35 mL allergy 01/27/2017 0.20 mL allergy 01/27/2017 0.20 mL allergy 12/24/2016 0.50 mL allergy 12/24/2016 0.50 mL allergy 12/09/2016 0.50 mL allergy 12/09/2016 0.50 mL allergy 11/26/2016 0.50 mL allergy 11/26/2016 0.50 mL allergy 11/12/2016 0.50 mL allergy 11/12/2016 0.50 mL allergy 10/29/2016 0.50 mL allergy 10/29/2016 0.50 mL allergy 10/15/2016 0.50 mL allergy 10/15/2016 0.50 mL allergy 10/06/2016 0.40 mL allergy 10/06/2016 0.40 mL allergy 10/01/2016 0.30 mL allergy 10/01/2016 0.30 mL allergy 09/23/2016 0.20 mL allergy 09/23/2016 0.20 mL allergy 09/17/2016 0.10 mL allergy 09/17/2016 0.10 mL allergy 08/19/2016 0.50 mL allergy 08/19/2016 0.50 mL allergy 08/12/2016 0.45 mL allergy 08/12/2016 0.45 mL allergy 08/05/2016 0.40 mL allergy 08/05/2016 0.40 mL allergy 07/15/2016 0.25 mL allergy 07/15/2016 0.25 mg allergy 06/30/2016 0.15 mL allergy 06/30/2016 0.15 mL allergy 06/25/2016 0.10 mL allergy 06/25/2016 0.10 mL allergy 06/04/2016 0.45 mL allergy 06/04/2016 0.45 mL allergy 05/27/2016 0.40 mL allergy 05/27/2016 0.40 mL allergy 05/11/2016 0.40 mg allergy 05/11/2016 0.40 mL allergy 04/20/2016 .40 allergy 04/20/2016 .40 allergy 03/16/2016 0.35 mL allergy 03/16/2016 0.35 mL allergy 03/02/2016 0.30 mL allergy 03/02/2016 0.30 mL allergy 02/13/2016 .20 mL allergy 02/13/2016 .20 mL allergy 01/20/2016 0.15 mL allergy 01/20/2016 0.15 mL allergy 01/10/2016 0.10 mL allergy 01/10/2016 0.10 mL allergy 12/09/2015 0.5 mL allergy 12/09/2015 0.5 mL allergy 12/02/2015 0.50 mL allergy 12/02/2015 0.50 mL allergy 10/23/2015 0.30 mL allergy 10/23/2015 0.30 mL allergy 10/10/2015 0.20 mg allergy 10/10/2015 0.29 mL allergy 09/30/2015 0.10 mL allergy 09/30/2015 0.10 mL allergy 09/25/2015 0.05 mL allergy 08/28/2015 0.10 mL allergy 08/28/2015 0.1 mL allergy 08/20/2015 0.25 mL allergy 08/20/2015 0.25 mL allergy 08/13/2015 0.20 mg allergy 08/13/2015 0.20 mL allergy 07/29/2015 0.15 mg allergy 07/29/2015 0.15 mg allergy 07/11/2015 0.10 mL allergy 07/11/2015 0.10 mL allergy 04/15/2009 0.5 mL allergy 04/15/2009 0.50 mL allergy 04/10/2009 0.50 allergy 04/10/2009 0.50 allergy 04/11/2008 0.45 allergy 04/11/2008 0.45 allergy 04/09/2008 0.4 allergy 04/09/2008 0.4 Medical (General) History Medical History History ICD Code chronic neck pain-cervical spondylosis w ith c 6- herniation smoking COPD hyperlipidemia 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 Cevallos Declines all immunizations 06/2023; 10 2 024 Surgical History Surgery Date(Month/Year) lumbar microdiscectomy 2001 partial hysterectomy tonsillectomy D&C sinus surgery deviated septum surgery precancerous nodule removed from vocal c ords 02/2006 PE tubes 2006 Series of epidural steroid injections of lumbar spine replaced tubes both ears 09/28 right foot ( screws) 2009 C-scope/ Allran/ normal 06/2011 tube in right ear 2012 Repair of deviated septum - Dr. Fang ORIF bilateral distal radial fractures @ [facility]-Dr Goodman 02/21/2014 plate removed from left wrist 08/2014 hammer toe 07/15/15 nodule removed from throat-Dr Fang 12/27 C-scope/ Allran/ adenomatous polyp 2019 Cataract Surgery - Right Eye 07/2023 C-scope/ Allran 2023 Sinus surgery/ Dr. Tilley 12/2024 Hospitalization History Reason Date(Month/Year) [facility] ER-broken right and left wrist 03/03
== END 2025-06-11 23:59 | disposition home or self-care (01) ==
LOC: RAD 12:51
PROVIDERS: PCP Family Medicine; Visit Provider Family Medicine
DX: M81.0 Age-related osteoporosis without current pathological fracture (principal); M85.851 Other specified disorders of bone density and structure, right thigh; Z78.0 Asymptomatic menopausal state
CPT/HCPCS: 77080

== ENCOUNTER 2025-07-24 10:24 | Outpatient (CLI) | payer OTHER, SELFPAY ==
--- OUTSIDE RECORDS SUMMARY | 2024-04-20 09:10 | XMS_ITS ---
Author Organization [facility] Address [address] [facility] [address] [place] [id number] Care Team Providers Care Work Order Detailer Name Role Phone GeraldGriselda Primary Care Provider Allergies Allergen (clinical drug ingredient) Drug/Non Drug Allergy documented on EMR Reaction Allergy Type Onset Date Status Non-steroidal anti-inflammatory agent (FN) NSAIDs stomach cramping Drug Allergy Active Results Component Value Reference Range Notes Opiates, Urine, Quantitative Reviewed date:07/28/2024 11:44:10 AM Interpretation: Performing Lab: Notes/Report: Test performed by [facility] [address] [place] [address] , [address], [place] [address] Joe Manzanares MD, Assurance Engineer CLIA: [id number] 6-acetylmorphine <10 <10 ng/mL This test was developed and its performance characteristics are determined by [facility] clinical laboratories. It has not been cleared or approved by the FDA. The laboratory is regulated under [place]INTIA as qualified to perform high-complexity testing. This test is used for clinical purposes and should not be regarded as investigational or for research. Methodology: Quantitative Liquid Chromatography-MS/MS. Urine drug screen quantitation results are for medical decision making and not to be used for medicolegal evaluation. Please see directory of service for additional information. Codeine <50 <50 ng/mL Hydrocodone <50 <50 ng/mL Hydromorphone <100 <100 ng/mL Morphine <50 <50 ng/mL Norhydrocodone <50 <50 ng/mL Noroxycodone >1000 <50 ng/mL Noroxycodone is a metabolite of oxycodone; consistent with use of a drug containing oxycodone. Oxycodone 860.5 <50 ng/mL Consistent with use of a drug containing oxycodone. Oxymorphone <100 <100 ng/mL Please see dire ctory of service for additional information. P-Urine Drug Screen with Ref scott to Confirmation Reviewed date:07/28/2024 11:43:19 AM Interpretation:See OV note 07/27/24 Performing Lab: Notes/Report: Test performed by [facility] [address] [place] [address] , [address], [place] [address] Joe Manzanares MD, Assurance Engineer CLIA: [id number] Amphetamines NEGATIVE NEGATIVE Barbiturates NEGATIVE NEGATIVE Benzodiazepines NEGATIVE NEGATIVE Cannabinoids NEGATIVE NEGATIVE Cocaine Metabolites NEGATIVE NEGATIVE Oxycodone POSITIVE NEGATIVE Methadone NEGATIVE NEGATIVE Opiates NEGATIVE NEGATIVE Phencyclidine NEGATIVE NEGATIVE Propoxyphene NEGATIVE NEGATIVE Immunoassay Drug Screen [place] Values See Below Please see the Directory of Services for cut-off concentrations. Urine drug screen results are for medical decision making and are not to be used for medical/legal evaluation. REASON FOR VISIT 3 month follow up, Needs UDS Medications Medication SIG (Take, Route, Frequency, Duration) Notes Start Date End Date Status Fosamax 70 MG 1 tab(s) orally once a week Not-Taking Zanaflex 4 MG 1 tab(s) orally tid 03/15/2020 Not-Taking Neurontin 800 MG 1 tab(s) Qam, 2 tab( s) Qpm orally tid Not-Taking HYDROcodone-Acetaminophen 7.5-325 MG 1 tab(s) orally four times a day as needed Active MS Contin 60 MG 1 tab(s) orally ever y 12 hours Active Promethazine-DM 6.25-15 MG/5ML 5-10 ml Orally every 6 hrs prn 01/04/2024 Active Cephalexin 500 MG 1 capsule Orally Two times a day 10/05/2023 Not-Taking methylPREDNISolone 4 MG as directed Orally 024 Not-Taking Xolair 150 MG 300 mg subcutaneousl y every 4 weeks Not-Taking Topamax 100 MG 1 tablet Orally twic e a day; Duration: 90 days Active Imitrex 100 MG take 1 tablet by flakita as directed Active Ambien 10 MG 1 tab(s) orally at bedtime 08/24/2023 Active Doxycycline Hyclate 100 MG 1 capsule Ora lly Two times a day; Duration: 10 day(s) 01/04/2024 Active Advair Diskus 250-50 MCG/ACT 1 puff(s) inhaled BID Active Mometasone Furoate 50 MCG/ACT 2 spray(s) intranasally once a day; Duration: 30 day(s) Active ProAir Digihaler 108 (90 Base) MCG/ACT 2 puff(s) inhaled 4 times a day 07/15/2012 Active Fasenra 30 MG/ML as directed subcutaneously every 8 weeks Active Social History Tobacco Use: Social History Observation Description Date Details (start date - stop date) Former Smoker NA - NA CURRENT TOBACCO USE: Question Answer Notes Are you a: former smoker Vital Signs Blood pressure systolic 110 mm Hg 04/20/20 24 Blood pressure diastolic 70 mm Hg 024 Heart Rate 64 /min 04/20/2024 Height 65.50 in 04/20/2024 Weight 110.4 lbs 04/20/2024 BMI 18.09 kg/m2 04/20/2024 Encounters Encounter Location Date Provider Diagnosis [facility] [address] [facility] [address] [place] [id number] 04/20/2024 Griselda Duarte Chronic pain syndrom e G89.4 ; Cervicalgia M54.2 ; Former smoker Z87.891 and Allergic rhinitis, unspecified J30.9 Assessments Encounter Date Diagnosis (ICD Code) Assessment Notes Treatment Notes Treatment Clinical Notes Section Notes 04/20/2024 Chronic pain syndrome (ICD-10 - G89.4) 04/20/2024 Cervicalgia (ICD-10 - M54.2) 04/20/2024 Former smoker (ICD-10 - Z87.891) 04/20/2024 Allergic rhinitis, unspecified (ICD-10 - J30.9) Plan Of Treatment Medication Medication Name Sig Start Date Stop Date Notes HYDROcodone-Acetaminophen 7.5-325 MG 1 tab(s) orally four times a day as needed MS Contin 60 MG 1 tab(s) orally ever y 12 hours Next Appt Details Follow Up: 3 Months, Reason: Provider Name:Griselda Ventura, 08/14/2025 01:30:00 PM, [address], [address], [place], [id number], Progress Notes * TITA BENNETTB:1960 ( 65 yo F)Acc No.[id number]:04/20/2024 Progress Notes Patient: KATIE HILLS Provider: Griselda Duarte M.D. :1960 A ge:63 Y S ex:Female Date:04/20/2024 Address:[address] [place] [address] [place], [id number] Subjective: * Chief Complaints: * 1 . 3 month follow up. 2. Needs UDS. * HPI: H PI: Patient is here today for a 3 month check up. Pt sts that she has no new concerns or complaints at this time. Pt does not need refills. * ROS: D ERMATOLOGY: no R adrian. n o H angel luis. N EUROLOGY: no H eadache. n o D izziness. U ROLOGY: no D ifficulty urinating. n o B lood in urine. 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 * Surgical History: l umbar microdiscectomy 2001, partial hysterectomy , tonsillectomy , D&C , sinus surgery , deviated septum surgery , precancerous nodule removed from vocal cords 02/2006, PE tubes 2005, Series of epidural steroid injections of lumbar spine , replaced tubes both ears 09/28, right foot ( screws) 2009, C-scope/ Allran/ normal 06/2011, tube in right ear 2012, Repair of deviated septum - Dr. Fang 01/2014, ORIF bilateral distal radial fractures @ [facility]-Dr Goodman 02/21/2014, plate removed from left wrist 08/2014, hammer toe 07/15/15, nodule removed from throat-Dr Fang 12/28/2019, C-scope/ [facility]ran/ adenomatous polyp 06/25/2020, Cataract Surgery - Right Eye 07/2023, C-scope/ Allran 2023. * Hospitalization/Major Diagno stic Procedure: [facility]-broken right and left wrist 03/03. * Family History: F ather: alive 90 yrs. M other: alive 89 yrs. P aternal Grand Father: . P aternal Grand Mother: . M aternal Grand Father: . M aternal Grand Mother: . 1 brother(s) , 2 sister(s) . 1 daughter(s) . . * Social History: C URRENT TOBACCO USE A re you a: f ormer smoker. C affeine: yes, frequency:3 caffeine drinks. Exercise: no. Home smoke detector use: yes. Marital Status: . Past smoking status: yes, quit 2019. Recreational drug use: no. Alcohol: no. Sexually active: no.. * Medications: T aking Fasenra 30 MG/ML Solution Prefilled Syringe as directed subcutaneously every 8 weeks , Taking ProAir Digihaler 108 (90 Base) MCG/ACT Aerosol Powder Breath Activated 2 puff(s) inhaled 4 times a day , Taking Mometasone Furoate 50 MCG/ACT Suspension 2 spray(s) intranasally once a day , Taking Advair Diskus 250-50 MCG/ACT Aerosol Powder Breath Activated 1 puff(s) inhaled BID , Taking Ambien 10 MG Tablet 1 tab(s) orally at bedtime , Taking Imitrex 100 MG Tablet take 1 tablet by mouth as directed , Taking Doxycycline Hyclate 100 MG Capsule 1 capsule Orally Two times a day , Taking Promethazine-DM 6.25-15 MG/5ML Syrup 5-10 ml Orally every 6 hrs prn , Taking Topamax 100 MG Tablet 1 tablet Orally twice a day , Taking MS Contin 60 MG Tablet Extended Release 1 tab(s) orally every 12 hours , Taking HYDROcodone-Acetaminophen 7.5- 325 MG Tablet 1 tab(s) orally four times a day as needed , Not-Taking methylPREDNISolone 4 MG Tablet Therapy Pack as directed Orally , Not-Taking Cephalexin 500 MG Capsule 1 capsule Orally Two times a day , Not-Taking Xolair 150 MG Solution Reconstituted 300 mg subcutaneously every 4 weeks , Not-Taking Neurontin 800 MG Tablet 1 tab(s) Qam, 2 tab(s) Qpm orally tid , Not-Taking Zanaflex 4 MG Tablet 1 tab(s) orally tid , Not-Taking Fosamax 70 MG Tablet 1 tab(s) orally once a week , Medication List reviewed and reconciled with the patient * Allergies: N SAIDs: stomach cramping. Objective: * Vitals: W t:110.4, Temp:97.9, BP:110/70, HR:64, Nurse:PHYLLIS, Ht: 65.50, BMI:18.09. * Examination: G eneral Examination: General Appearance: N AD. N li: H ead forward posturing. C hest: I ncreased AP diameter. H eart: R SR. L ungs: G enerally diminished breath sounds. B ack: T horacic kyphosis. E xtremities: n o leg edema. ? Assessment: * Assessment: 1. C ervicalgia - M54.2 (Primary) 2 . C hronic pain syndrome - G89.4 ? 3 . F ormer smoker - Z87.891 4 . A llergic rhinitis, unspecified - J30.9 Plan: * Treatment: 2. C hronic pain syndrome Continue MS Contin Tablet Extended Release, 60 MG, 1 tab(s), orally, every 12 hours, Refills 0.? L AB: P-Urine Drug Screen with Reflex to Confirmation (Collection Date & Time - 04/20/2024 01:53 PM) S ee OV note 07/27/24 Value Reference Range A mphetamines, Urine NEGATIVE NEGATIVE - * B enzodiazepines, Urine NEGATIVE NEGATIVE - * B arbiturates, Urine NEGATIVE NEGATIVE - * C ocaine Metabolites, Urine NEGATIVE NEGATIVE - * C annabinoids, Urine NEGATIVE NEGATIVE - * I mmunoassay Drug Screen [place] Values See Below - * M ethadone, Urine NEGATIVE NEGATIVE - * O piates, Urine NEGATIVE NEGATIVE - * O xycodone, Urine Qualitative POSITIVE A NEGATIVE - * P ropoxyphene, Urine NEGATIVE NEGATIVE - * P hencyclidine, Urine NEGATIVE NEGATIVE - * Griselda Duarte 07/27/2024 1 1:42:51 AM > See OV note 07/27/2024 * Labs: * L ab: Opiates, Urine, Quantitative (Collection Date & Time - 04/20/2024 01:53 PM) Value Reference Range H ydrocodone, Urn, Quant <50 <50 - ng/mL * H ydromorphone, Urn, Quant <100 <100 - ng/mL * M orphine, Urn, Quant <50 <50 - ng/mL * N orhydrocodone, Urn, Quant <50 <50 - ng/mL * N oroxycodone, Urn, Quant >1000 H <50 - ng/mL * 6 -acetylmorphine, Urn, Quant <10 <10 - ng/mL * O xycodone, Urn, Quant 860.5 H <50 - ng/mL * O xymorphone, Urn, Quant <100 <100 - ng/mL * C odeine, Urn, Quant <50 <50 - ng/mL * [facility], IT support 04/25/2024 01:40:04 : This order was created by the Interface.Griselda Duarte 07/27/2024 11:43:48 AM > see OV note 07/27/2024 * Follow Up: 3 Months * Images: Billing Information: * Visit Code: 25523 Office Visit, Est Pt., Level 3. * Procedure Codes: * Electronic signature of Griselda Duarte MD on 07/24/2025 at 10:30 AM EST Sign off status: Pending * Provider: Griselda Duarte M.D. Date: 0 04/20/2024 Generated for Printi ng/Faxing/eTransmitting on: 09/23/2024 10:30 AM EST History and Physical Notes * HPI (History of Present Illness) Category Sub-Category Detail Notes Category Not es HPI Patient is here today for a 3 mo [facility] check up. Pt sts that she has no new concerns or complaints at this time. Pt does not need refills Examination Category Sub-Category Detail Notes Category Not es General Examination Heart: RSR Lungs: Generally diminished breath sounds Extremities: no leg edema General Appearance: NAD Neck: Head forward posturi ng Back: Thoracic kyphosis Chest: Increased AP diamete r
--- OUTSIDE RECORDS SUMMARY | 2024-07-27 08:45 | XMS_ITS ---
Author Organization [facility] Address 12[address] [facility] [address] [place] [phone] Care Team Providers Care Cable Placer Name Role Phone Griselda Duarte Primary Care Provider [phone] Allergies Allergen (clinical drug ingredient) Drug/Non Drug [...] Provider Diagnosis [facility] [address], [place] [id number] 07/27/2024 Griselda Duarte Chronic pain syndrom e [...] Months, Reason: Provider Name:Griselda Coy Mohan braswell, 08/14/2025 01:30:00 PM, [address], [address], [place], [id number], Progress Notes * TITA BENNETTB:1960 ( 65 yo F)Acc No.[id number]:07/27/2024 Progress Notes Patient: KATIE HILLS Provider: Griselda Duarte M.D. :1960 A ge:64 Y S ex:Female Date:07/27/2024 Address:[address] [place] [address] [place], [id number] Subjective: * Chief Complaints: * 1 . 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 * Procedure Codes: * Electronic signature of Griselda Duarte MD on 07/24/2025 at 10:29 AM EST Sign off status: Pending * Provider: Griselda Duarte M.D. Date: 09/26/2023 Generated for [facility]/Fachetg/eTransmitting on: 09/23/2024 10:29 AM EST History and Physical Notes * HPI (History of Present Illness) Category Sub-Category Detail Notes Category Not es HPI Patient is here today for a 3 mo [facility] check up. Pt sts that she feels [...]
--- OUTSIDE RECORDS SUMMARY | 2024-08-29 05:00 | XMS_ITS ---
Author Organization [facility] Address 1210 [facility] [address] [place] [id number] Care Team Providers Care Doughnut Dough Mixer Name Role Phone Griselda Duarte Primary Care [...] 08/29/2024 Encounters Encounter Location Date Provider Diagnosis A-[place] [address] [phone] 08/29/2024 Griselda Duarte Chronic pain syndrom e [...] [address], [address], [place], [place], [id number], Progress Notes * JUAN TITAB:1960 ( 65 yo F)Acc No.[id number]:08/29/2024 Progress Notes Patient: KATIE HILLS Provider: Griselda Duarte M.D. :1960 A ge:64 Y S ex:Female Date:08/29/2024 Address:[address] [place] [address] KATI AMEZQUITA, [id number] Subjective: * Chief Complaints: * 1 . [...] a recent bone density test by her SUPERINTENDENT COMMUNICATIONS. Please refer to copy in chart. 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 Cevallos, Declines all immunizations [...] 01/2014, ORIF bilateral distal radial fractures @ [facility]-Dr Goodman 02/21/2014, plate removed from left [...] * Images: Billing Information: * Visit Code: 00764 Office Visit, Est Pt., Level 3. * Procedure Codes: 36282 INCISION AND DRAINAGE OF ABSCESS,CYST,CARBUNCLE,PARONYCHIA SIMPLE. * Electronic signature of Griselda Duarte MD on 07/24/2025 at 10:30 AM EST Sign off status: Pending * Provider: Griselda Duarte M.D. Date: 10/30/2023 Generated for Garth naidu/Lorene/Sheeba on: 09/23/2024 10:30 AM EST History and [...]
--- OUTSIDE RECORDS SUMMARY | 2024-09-01 11:00 | XMS_ITS ---
Author Organization [facility] Address 1210 [facility] [address] [place] [phone] Care Team Providers Care Vegetable Harvest Worker Name Role Phone Griselda Duarte Primary Care Provider [phone] Gibson Morgan Unavailable [phone] Allergies Allergen (clinical drug ingredient) Drug/Non Drug [...] Encounter Location Date Provider Diagnosis [facility] 1210 [facility] 36 [facility] [address] [place] [id number] 09/01/2024 Gibson Morgan Cellulitis of finger of [...] Provider Name:Griselda Ventura, 08/14/2025 01:30:00 PM, 1210 [facility] 36 [facility], [address], [place], [phone], Progress Notes * CLAUDIATITA CASTROB:1960 ( 65 yo F)Acc No.[id number]:09/01/2024 Progress Notes Patient: KATIE HILLS Provider: Dusty Morgan M.D. 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 * Procedure Codes: * Electronic signature of Trudi Morgan MD on 07/24/2025 at 10:28 AM EST Sign off status: Pending * Provider: Dusty Morgan M.D. Date: 11/02/2023 Generated for Garth naidu/Lorene/Johnitting on: 09/23/2024 10:28 AM EST History and Physical Notes * [...]
--- OUTSIDE RECORDS SUMMARY | 2024-10-26 08:45 | XMS_ITS ---
Author Organization [facility] Address 1210 [facility] [address] [place] [phone] Care Team Providers Care Printing Technician Name Role Phone Griselda Duarte Primary Care Provider [phone] Allergies Allergen (clinical drug ingredient) Drug/Non Drug Allergy documented on EMR Reaction Allergy Type Onset Date Status Non-steroidal anti-inflammatory agent (FN) NSAIDs stomach cramping Drug Allergy Active REASON FOR VISIT 3 months Medications Medication SIG (Take, Route, Frequency, Duration) Notes Start Date End Date Status MS Contin 60 MG 1 tab(s) orally ever y 12 hours Active Alendronate Sodium 70 MG 1 tablet 30 min utes before the first food, beverage or medicine of the day with plain water Orally once a week 08/29/2024 Active HYDROcodone-Acetaminophen 7.5-325 MG 1 tab(s) orally four times a day as needed Active Topamax 100 MG 1 tablet Orally twic e a day; Duration: 90 days Active Imitrex 100 MG take 1 tablet by flakita as directed Active Ambien 10 MG 1 tab(s) orally at bedtime 08/24/2023 Active Mometasone Furoate 50 MCG/ACT 2 spray(s) intranasally once a day; Duration: 30 day(s) Active Advair Diskus 250-50 MCG/ACT 1 puff(s) inhaled BID Active Fasenra 30 MG/ML as directed subcutan eously every 8 weeks Active ProAir Digihaler 108 (90 Base) MCG/ACT 2 puff(s) inhaled 4 times a day 07/15/2012 Active Amoxicillin-Pot Clavulanate 875-125 MG 1 tablet Orally Two times a day 10/26/2024 Active Social History Tobacco Use: Social History Observation Description Date Details (start date - stop date) Former Smoker NA - NA CURRENT TOBACCO USE: Question Answer Notes Are you a: former smoker Problems Problem Type SNOMED Code ICD Code Onset Dates Problem Status W/U Status Risk Notes Problem Chronic bronchitis (37846127) Chronic bronchitis (J42) Active confirmed Vital Signs Blood pressure systolic 128 mm Hg 10/26/19 25 Blood pressure diastolic 70 mm Hg 025 Heart Rate 70 /min 10/26/2024 Height 65.50 in 10/26/2024 Weight 103.8 lbs 10/26/2024 BMI 17.01 kg/m2 10/26/2024 Encounters Encounter Location Date Provider Diagnosis [place] [facility] 36 [facility] [address] [place] [id number] 10/26/2024 Griselda Duarte Chronic bronchitis J 42 ; Chronic pain syndrome G89.4 ; Cervicalgia M54.2 and Osteopenia M85.80 Assessments Encounter Date Diagnosis (ICD Code) Assessment Notes Treatment Notes Treatment Clinical Notes Section Notes 10/26/2024 Chronic bronchitis (ICD-10 - J42) 10/26/2024 Chronic pain syndrome (ICD-10 - G89.4) 10/26/2024 Cervicalgia (ICD-10 - M54.2) 10/26/2024 Osteopenia (ICD-10 - M85.80) Continue her calcium and vitamin D with plans to repeat DEXA scan in 2 years. Plan Of Treatment Medication Medication Name Sig Start Date Stop Date Notes MS Contin 60 MG 1 tab(s) orally ever y 12 hours HYDROcodone-Acetaminophen 7.5-325 MG 1 tab(s) orally four times a day as needed Amoxicillin-Pot Clavulanate 875-125 MG 1 tablet Orally Two times a day 10/26/2024 Treatment Notes Assessment Notes Osteopenia Continue her calcium and vitamin D with plans to repeat DEXA scan in 2 years. Next Appt Details Follow Up: 3 Months, Reason: Provider Name:Griselda Ventura, 08/14/2025 01:30:00 PM, [address] [place] [facility] 36 [facility], [address], [place], [phone], Progress Notes * SUSIE BENNETT:1960 ( 65 yo F)Acc No.[id number]:10/26/2024 Progress Notes Patient: KATIE HILLS Provider: Griselda Duarte M.D. :1960 A ge:64 Y S ex:Female Date:10/26/2024 Address:[facility] to [facility] [id number] Subjective: * Chief Complaints: * 1 . 3 months. * HPI: H PI: 64 year old female presents with c/o Patient is here today for?Pt is here today for a scheduled 3 month check up. Pt she is doing well and has no concersn or complaints at this time. E NT/respiratory: c/o nasal congestion P t sts that for 2 months she has had a constant runny nose and cough with green phlegm. . Denies : sore throat. D enies : Fever. D enies : ear pain. * ROS: C ARDIOLOGY: no D izziness. n o C hest pain. G ASTROENTEROLOGY: no N ausea. n o V omiting. U ROLOGY: no D ifficulty urinating. n o B lood in urine. 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 * Family History: F ather: alive 91 yrs. M other: alive 90 yrs. P aternal Grand Father: . P [...] tablet Orally twice a day , Taking Alendronate Sodium 70 MG Tablet 1 tablet 30 minutes before the first food, beverage or medicine of the day with plain water Orally once a week , Taking HYDROcodone-Acetaminophen 7.5-325 MG Tablet 1 tab(s) orally four times a day as needed , Taking MS Contin 60 MG Tablet Extended Release 1 tab(s) orally every 12 hours , Medication List reviewed and reconciled with the patient * Allergies: N SAIDs: stomach cramping. Objective: * Vitals: W t:103.8, Temp:97.7, BP:128/70, HR:70, O2 Sat:89% on RA, Nurse:[facility], Ht: 65.50, BMI:17.01. * Examination: E NT/Respiratory: General Appearance: N AD. N ose : mild congestion. S inuses : non tender bilaterally. O ral cavity : V oice is slightly hoarse.? Postnasal drainage. H eart : R RR, normal S1 S2, no murmurs. L ungs: G enerally diminished breath sounds with occasional rhonchi. No wheezes. Assessment: * Assessment: 1. C hronic bronchitis - J42 (Primary) 2 . C hronic pain syndrome - G89.4? 3. C ervicalgia - M54.2 4 . O steopenia - M85.80 ? Plan: * Treatment: 2. C hronic pain syndrome Continue MS Contin Tablet Extended Release, 60 MG, 1 tab(s), orally, every 12 hours, Refills 0.? 3. C ervicalgia Continue HYDROcodone-Acetaminophen Tablet, 7.5-325 MG, 1 tab(s), orally, four times a day as needed, Refills 0. 4. O steopenia Notes: Continue her calcium and vitamin D with plans to repeat DEXA scan in 2 years. * Procedure Codes: 9 4760 PULSE OX, 3074F SYST BP LT 130 MM HG, 3078F DIAST BP < 80 MM HG * Follow Up: 3 Months * Images: Billing Information: * Visit Code: 50592 Office Visit, Est Pt., Level 3. * Procedure Codes: 44373 PULSE OX. 3074F SYST BP LT 130 MM HG. 3078F DIAST BP < 80 MM HG. * Electronic signature of Griselda Duarte MD on 07/24/2025 at 10:28 AM EST Sign off status: Pending * Provider: Griselda Duarte M.D. Date: 0 10/26/2024 Generated for Garth naidu/Lorene/Sheeba on: 1 09/23/2024 10:28 AM EST History and Physical Notes * HPI (History of Present Illness) Category Sub-Category Detail Notes Category Not es ENT/respiratory sore throat ear pain Fever nasal congestion Pt sts that for 2 mo nths she has had a constant runny nose and cough with green phlegm. HPI Patient is here today for Pt is here today for a scheduled 3 month check up. Pt she is doing well and has no concersn or complaints at this time Examination Category Sub-Category Detail Notes Category Not es ENT/Respiratory Oral cavity : Voice is slightl y hoarse. Postnasal drainage Sinuses : non tender bilateral ly Heart : RRR, normal S1 S2, n o murmurs Lungs: Generally diminished breath sounds with occasional rhonchi. No wheezes General Appearance: NAD Nose : mild congestion
--- OUTSIDE RECORDS SUMMARY | 2025-02-08 09:00 | XMS_ITS ---
Author Organization [facility] Address [address] [facility] [address] [place] [phone] Care Team Providers Care Carbide Die Maker Name Role Phone Griselda Duarte Primary Care Provider [phone] Allergies Allergen (clinical drug ingredient) Drug/Non Drug [...] Location Date Provider Diagnosis [place] [address] [facility] [address] [place] [phone] 02/08/2025 Griselda Duarte Chronic pain syndrom e [...] [address], [place], [id number], Medications Administered Medication Instructions Date of Administration Dosage Notes B-12 02/08/2025 1 mL Progress Notes * TITA BENNETTB:1960 ( 65 yo F)Acc No.[id number]:02/08/2025 Progress Notes Patient: KATIE HILLS Provider: Griselda Duarte M.D. 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 Modifiers: 25 * Procedure Codes: J3420 12. 45532 ADMINISTRATION OF INJECTION. G8783 BP SCR PRFRM RCMDD DEFIND SCR INTVL. 3074F SYST BP LT 130 MM HG. 3078F DIAST BP < 80 MM HG. * Electronic signature of Griselda Duarte MD on 07/24/2025 at 10:27 AM EST Sign off status: Pending * Provider: Griselda Duarte M.D. Date: 0 02/08/2025 Generated for Printi ng/Lorene/eTransmitting on: 1 09/23/2024 10:27 AM EST History and Physical Notes * [...]
--- OUTSIDE RECORDS SUMMARY | 2025-05-10 06:00 | XMS_ITS ---
Author Organization [facility] Address [address] [facility] [address] [place] [id number] Care Team Providers Care Project Manager Entertainment And Media Name Role Phone Griselda Duarte Primary Care Provider [phone] Allergies Allergen (clinical drug ingredient) Drug/Non Drug [...] Provider Diagnosis [place] [address] [place] [id number] 05/10/2025 Griselda Duarte Chronic pain syndrom e [...] 08/14/2025 01:30:00 PM, [address] [facility], [address], [place], [place], [id number], Progress Notes * TITA BENNETTB:1960 ( 65 yo F)Acc No.[id number]:05/10/2025 Progress Notes Patient: [place] Provider: Griselda Duarte M.D. :1960 A ge:64 Y S ex:Female Date:05/10/2025 Address:[address] [place] [address] [place], [phone] Subjective: * Chief Complaints: * 1 . [...] Ventura has closed his Allergy practice in [place] and she has not established care with a new apron cleaner. 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 iTlley 12/2024. * Hospitalization/Major Diagno stic Procedure: H [...] 11:2 7:45 AM EDT > faxed to [facility] Scheduling 6.?Chronic obstructive pulmonary disease, unspecified? [...] * Images: Billing Information: * Visit Code: 96840 Office Visit, Est Pt., Level 4. * Procedure Codes: * Electronic signature of Griselda Duarte MD on 07/24/2025 at 10:27 AM EST Sign off status: Pending * Provider: Griselda Duarte M.D. Date: 0 05/10/2025 Generated for Garth naidu/oLrene/Kimberleesmitting on: 09/23/2024 10:27 AM EST History and Physical [...]
--- OUTSIDE RECORDS SUMMARY | 2025-07-24 10:29 | XMS_ITS | Patient Health Record ---
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 Developer Name Role Phone Griselda Duarte Primary Care Provider Cathy Gibson Unavailable [phone] Allergies Allergen (clinical drug ingredient) Drug/Non Drug Allergy documented on EMR Reaction Allergy Type Onset Date Status Non-steroidal anti-inflammatory agent (FN) NSAIDs stomach cramping Drug Allergy Active Results Component Value Reference Range Notes Bone density Reviewed date:06/12/2025 09:04:17 AM Interpretation:Osteoporosis Performing Lab: Notes/Report: Osteoporosis Medications Medication SIG (Take, Route, Frequency, Duration) Notes Start Date End Date Status HYDROcodone-Acetaminoph en 7.5-325 MG 1 tab(s) orally four times a day as needed 07/20/2025 Active Topamax 100 MG 1 tablet Orally twic e a day; Duration: 90 days Active MS Contin 60 MG 1 tab(s) orally ever y 12 hours 07/20/2025 Active Alendronate Sodium 70 MG 1 tablet [...] Route Administration Date Status Comme nts Fluzone Quad (6months&older) IM Intramuscular 06/13/2019 Administered Fluzone Quad (6months&older) IM Intramuscular 05/23/2020 Administered Hepatitis A (adult) Unknown 01/27/2019 Administered PNEUMOVAX 23 VACCINE IM Intramuscular 07/09/2008 Administe red Prevnar (PCV13) IM Intramuscular 07/31/2014 Administered Shingrix Unknown 11/24/2020 Administered Shingrix Unknown 01/24/2021 Administered xFlu shot-36 months and older IM Intramuscular 06/29/2007 Administered xFlu shot-36 months and older IM Intramuscular 07/02/2008 Administered xFlu shot-36 months and older IM Intramuscular 06/23/2010 Administered xFlu shot-36 months and older IM Intramuscular 06/05/2011 Administered xFluzone (6mos and older)-trivalent ID Intradermal 06/20/2014 Administered Morphine 10mg/ml IM Intramuscular 05/25/2006 Administered xFluzone Intradermal (18-64yrs)-trivalent ID Intradermal 06/29/2013 Administered xFluzone Intradermal (18-64yrs)-trivalent ID Intradermal 06/15/2012 Administered xFlu shot-36 months and older IM Intramuscular 07/24/2006 Administered xAdministration of injection IM Intramuscular 08/03/2016 Administered Tetanus Tdap-Adacel (over 7yrs) IM Intramuscular 08/16/2012 Administered PNEUMOVAX 23 VACCINE IM Intramuscular 2018 Administe red Given by PNEUMOVAX 23 VACCINE Unknown 04/08/2018 Pending Fluzone Quad (6months&older) IM Intramuscular 07/07/2021 Administered Fluzone Quad (6months&older) IM Intramuscular 2018 Administered Given by Fluzone Quad (6months&older) IM Intramuscular 07/05/2017 Administered Fluzone Quad (6months&older) IM Intramuscular 05/21/2015 Administered Fluzone Intradermal Quad private(18-64yrs) ID Intradermal 06/10/2016 Administered Social History Tobacco Use: Social History Observation Description Date Details (start date - stop date) Former Smoker NA - NA CURRENT TOBACCO USE: Question Answer Notes Are you a: former smoker Problems Problem Type SNOMED Code ICD Code Onset Dates Problem Status W/U Status Risk Notes Problem Insomnia (582820978) Insomnia (G47.00) Active confirmed Problem Solitary nodule of lung (039684318) Lung nodule (R91.1) Active confirmed Problem Anxiety (65745894) Anxiety (F41.9) Active confirmed Problem Osteopenia (469903649) Osteopenia (M85.80) Active confirmed Problem Seasonal allergy (191975502) Seasonal allergies (J30.2) Active confirmed Problem Cervicalgia (76009249) Cervicalgia (M54.2) Active confirmed Problem Primary insomnia (8180128) Primary insomnia (F51.01) Active confirmed Problem Chronic pain syndrome (332588700) Chronic pain syndrome (G89.4) Active confirmed Problem Allergic rhinitis (57455346) Allergic rhinitis, unspecified (J30.9) Active confirmed Problem Panlobular emphysema (3177654) Panlobular emphysema (J43.1) Active confirmed Problem Vaccination given (644223039) Encounter for immunization (Z23) Active confirmed Problem Migraine (27740946) Migraine without status migrainosus, not intractable, unspecified migraine type (G43.909) Active confirmed Problem Osteoporosis (61131220) Osteoporosis (M81.0) Active confirmed Problem Chronic bronchitis (69875730) Chronic bronchitis (J42) Active confirmed Problem Dyslipidemia (818744867) Dyslipidemia (E78.5) Active confirmed Problem Tobacco use (556338019) Tobacco use disorder (F17.200) Active confirmed Problem 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 Problem Allergic rhinitis (36026763) Non-seasonal allergic rhinitis, unspecified trigger (J30.89) Active confirmed Vital Signs Heart Rate 70 /min 10/26/2024 Blood pressure diastolic 70 mm Hg 05/10/2025 Height 65.50 in 05/10/2025 Blood pressure systolic 100 mm Hg 05/10/2025 Weight 106.2 lbs 05/10/2025 BMI 17.4 kg/m2 05/10/2025 Encounters Encounter Location Date Provider Diagnosis Kori [address] [place] [id number] 07/27/2024 R Coy Gerald Chronic pain syndrom e G89.4 ; Cervicalgia M54.2 ; Former smoker Z87.891 and Allergic rhinitis, unspecified J30.9 [facility] [address] [place] [id number] 08/29/2024 R Coy Gerald Chronic pain syndrom e G89.4 ; Abscess L02.91 ; Cervicalgia M54.2 and Osteopenia M85.80 [facility] [address] [place] [id number] 09/01/2024 [place] Cellulitis of finger of right hand L03.011 [facility] [address] [place] [address] [place] [id number] 10/26/2024 R Coy Gerald Chronic bronchitis J 42 ; Chronic pain syndrome G89.4 ; Cervicalgia M54.2 and Osteopenia M85.80 [facility] [address] [place] [address] [place] [id number] 02/08/2025 R Coy Gerald Chronic pain syndrom e G89.4 ; Cervicalgia M54.2 ; Osteopenia M85.80 ; Fatigue R53.83 ; Tobacco use disorder F17.200 and Osteoporosis M81.0 [facility] [address] [place] [address] [place] [id number] 05/10/2025 R Coy Gerald Chronic pain syndrom e G89.4 ; Cervicalgia M54.2 ; Osteopenia M85.80 ; Fatigue R53.83 ; Tobacco use disorder F17.200 ; Osteoporosis M81.0 ; Chronic obstructive pulmonary disease, unspecified J44.9 and Dyslipidemia E78.5 [facility] [address] [place] [id number] 10/13/2024 R Coy Gerald Cervicalgia M54.2 an d Chronic pain syndrome G89.4 [facility] [address] [place] [id number] 11/15/2024 R Coy Gerald Chronic pain syndrom e G89.4 and Cervicalgia M54.2 [facility] [address] [place], [place] [id number] 11/16/2024 R Coy Gerald [facility] [address] [place], [place] [id number] 12/11/2024 R Coy Gerald Chronic pain syndrom e G89.4 and Cervicalgia M54.2 [facility] [address] [place] [id number] 03/19/2025 R Coy Gerald Chronic pain syndrom e G89.4 and Cervicalgia M54.2 [facility] [address] [place] [id number] 04/19/2025 R Coy Gerald Chronic pain syndrom e G89.4 and Cervicalgia M54.2 [facility] [address] [place], [place] [id number] 05/17/2025 R Coy Gerald Chronic pain syndrom e G89.4 and Cervicalgia M54.2 [facility] [address] [place], [place] [id number] 05/25/2025 R Coy Gerald [facility] [address] [place], [place] [id number] 06/12/2025 R Coy Gerald [facility] [address] [place], [place] [id number] 06/20/2025 R Coy Gerald Chronic pain syndrom e G89.4 and Cervicalgia M54.2 [facility] [address] [place], [place] [id number] 07/19/2025 R Coy Gerald Chronic pain syndrom e G89.4 and Cervicalgia M54.2 Assessments Encounter Date Diagnosis (ICD Code) Assessment Notes Treatment Notes Treatment Clinical Notes Section Notes 07/19/2025 Chronic pain syndrome (ICD-10 - G89.4) 06/20/2025 Chronic pain syndrome (ICD-10 - G89.4) 07/27/2024 Chronic pain syndrome (ICD-10 - G89.4) 08/29/2024 Chronic pain syndrome (ICD-10 - G89.4) 08/29/2024 Abscess (ICD-10 - L02.91) 09/01/2024 Cellulitis of finger of right hand (ICD-10 - L03.011) 10/13/2024 Cervicalgia (ICD-10 - M54.2) 10/26/2024 Chronic pain syndrome (ICD-10 - G89.4) 10/26/2024 Chronic bronchitis (ICD-10 - J42) 12/11/2024 Chronic pain syndrome (ICD-10 - G89.4) 02/08/2025 Cervicalgia (ICD-10 - M54.2) 02/08/2025 Chronic pain syndrome (ICD-10 - G89.4) 03/19/2025 Chronic pain syndrome (ICD-10 - G89.4) 04/19/2025 Chronic pain syndrome (ICD-10 - G89.4) 05/10/2025 Chronic pain syndrome (ICD-10 - G89.4) 05/17/2025 Chronic pain syndrome (ICD-10 - G89.4) 11/15/2024 Chronic pain syndrome (ICD-10 - G89.4) 11/15/2024 Cervicalgia (ICD-10 - M54.2) 07/27/2024 Cervicalgia (ICD-10 - M54.2) 06/20/2025 Cervicalgia (ICD-10 - M54.2) 05/10/2025 Cervicalgia (ICD-10 - M54.2) 03/19/2025 Cervicalgia (ICD-10 - M54.2) 04/19/2025 Cervicalgia (ICD-10 - M54.2) 02/08/2025 Osteopenia (ICD-10 - M85.80) Continue her calcium and vitamin D with plans to repeat DEXA scan in 2 years. 12/11/2024 Cervicalgia (ICD-10 - M54.2) 08/29/2024 Cervicalgia (ICD-10 - M54.2) 10/26/2024 Cervicalgia (ICD-10 - M54.2) 10/13/2024 Chronic pain syndrome (ICD-10 - G89.4) 07/27/2024 Former smoker (ICD-10 - Z87.891) 05/17/2025 Cervicalgia (ICD-10 - M54.2) 07/19/2025 Cervicalgia (ICD-10 - M54.2) 08/29/2024 Osteopenia (ICD-10 - M85.80) She informs me that she likely will not take the medication. She is advised otherwise and to also continue her calcium and vitamin D with plans to repeat DEXA scan in 2 years. 07/27/2024 Allergic rhinitis, unspecified (ICD-10 - J30.9) 10/26/2024 Osteopenia (ICD-10 - M85.80) Continue her [...] H-CMP 05/10/2025 Next Appt Details Provider Name:Griselda Ventura 08/14/2025 01:30:00 PM, [address], [place], [id number], Insurance Providers Payer Name Payer Address Payer Phone Subscriber Number Group Number Insured Name Patient Relationship to Insured Coverage Start Date Coverage End Date [facility] [id number] [place] [phone] [id number] KATIE MARTINEZ Self - patient is the insured Medications Administered Medication Instructions Date of Administration Dosage Notes allergy 06/04/2016 0.45 mL allergy 06/04/2016 0.45 mL allergy 06/10/2016 0.05 mL allergy 06/10/2016 0.05 mL allergy 07/15/2016 0.25 mg allergy 07/15/2016 0.25 mL allergy 08/05/2016 0.40 mL allergy 08/05/2016 0.40 mL allergy 08/12/2016 0.45 mL allergy 08/12/2016 0.45 mL allergy 11/26/2016 0.50 mL allergy 11/26/2016 0.50 mL allergy 12/09/2016 0.50 mL allergy 12/09/2016 0.50 mL allergy 03/30/2017 0.50 mg allergy 03/30/2017 0.5 mg allergy 04/15/2017 0.50 mL allergy 04/15/2017 0.50 mL allergy 05/31/2017 0.50 mL allergy 05/31/2017 0.50 mL allergy 07/05/2017 0.50 mL allergy 07/05/2017 0.50 mL allergy 09/24/2017 0.50 mL allergy 09/24/2017 0.50 mL allergy 02/04/2018 0.50 mL allergy 02/04/2018 0.50 mL allergy 02/23/2018 0.50 mL allergy 02/23/2018 0.50 mL allergy 03/24/2018 0.50 mL allergy 03/24/2018 0.5 mL allergy 2018 0.5 mL Given by MP allergy 2018 0.5 mL Given by MP allergy 07/27/2018 0.5 mg allergy 07/27/2018 0.5 mg allergy 05/10/2019 0.5 mL allergy 05/10/2019 0.5 mL allergy 07/13/2019 0.50 allergy 07/13/2019 0.50 allergy 07/26/2019 allergy 07/26/2019 allergy 09/06/2019 0.10 mg allergy 09/06/2019 0.10 mg allergy 09/11/2019 0.20 mg allergy 09/11/2019 0.20 mg allergy 09/18/2019 0.30 mg allergy 09/18/2019 0.30 mg allergy 09/26/2019 .40 allergy 09/26/2019 .40 allergy 10/03/2019 0.50 mg allergy 10/03/2019 0.50 mg allergy 12/26/2019 0.20 allergy 12/26/2019 0.20 allergy 05/10/2020 0.50 mL allergy 05/10/2020 0.50 mL allergy 05/23/2020 0.5 mL allergy 05/23/2020 0.5 mL allergy 07/02/2020 0.20 mL allergy 07/02/2020 0.20 mL allergy 12/17/2020 0.5 mg allergy 12/17/2020 0.50 mg allergy 02/12/2021 0.50 mL allergy 02/12/2021 0.50 mL allergy 03/26/2021 0.35 mL allergy 03/26/2021 0.35 mL allergy 05/07/2021 0.5 mL allergy 05/07/2021 0.5 mL allergy 07/07/2021 0.5 mL allergy 07/07/2021 0.5 mL allergy 10/07/2021 .50 mL allergy 10/07/2021 .50 mL allergy 11/20/2021 0.50 mL allergy 11/20/2021 0.50 mL allergy 06/16/2022 0.5 mL allergy 06/16/2022 0.5 mL allergy 01/22/2023 .50 mL Mix #1 right a rm allergy 03/12/2023 0.5 mL allergy 03/12/2023 0.5 mL allergy 06/22/2023 allergy 06/22/2023 B-12 02/08/2025 1 mL Depo- Medrol 40 mg/ml 10/30/2014 1.5 mL Depo- Medrol 40 mg/ml 05/21/2015 1.5 mL Dexamethasone 01/09/2006 1 mL phenergan 25 mg/ml 05/25/2006 25 mg Dexamethasone 11/18/2018 1 mL Dexamethasone 09/07/2017 1 mL Dexamethasone 07/15/2012 Dexamethasone 01/14/2006 Dexamethasone 05/23/2005 0.5 mL Dexamethasone 05/19/2005 1 mL Depo- Medrol 40 mg/ml 02/03/2007 1.5 mL allergy 04/08/2023 0.50 mL allergy 04/08/2023 .50 mL allergy 03/31/2023 0.50 mL Mix #2 in left arm allergy 03/31/2023 0.50 mL Mix #1 in Righ t arm allergy 02/19/2023 0.5 mL allergy 02/19/2023 0.5 mL allergy 01/22/2023 .50 mL Mix #2 Left ar m allergy 01/07/2023 0.50 mL allergy 01/07/2023 0.50 mL allergy 10/15/2022 allergy 10/15/2022 allergy 09/04/2022 0.5 mL allergy 09/04/2022 0.5 mL allergy 08/20/2022 0.2 mL allergy 08/20/2022 0.2 [...] Vial #1 0.20 M L RA allergy 09/10/2021 0.5 mL allergy 09/10/2021 0.5 mL allergy 09/10/2021 0.5 mL allergy 06/17/2021 0.5 mL allergy 06/17/2021 0.5 mL allergy 04/03/2021 0.5 mL allergy 04/03/2021 0.5 mL allergy 03/13/2021 0.20 mL Given by Alicia Triplett allergy 03/13/2021 0.20 mL Shot given by Alicia Triplett allergy 02/27/2021 0.5 mL allergy 02/27/2021 0.5 mL allergy 12/30/2020 0.50 mg allergy 12/30/2020 0.50 mg allergy 12/03/2020 0.5 mL allergy 12/03/2020 0.5 mL allergy 10/01/2020 0.50 mg allergy 10/01/2020 0.50 mg allergy 08/08/2020 0.35 mg allergy 08/08/2020 0.35 mg allergy 04/02/2020 0.50 mg allergy 04/02/2020 0.50 mg allergy 03/15/2020 0.50 mg allergy 03/15/2020 0.50 mg allergy 02/09/2020 0.50 mL allergy 02/09/2020 0.50 mL allergy 01/02/2020 0.35 mg allergy 01/02/2020 0.35 mg allergy 12/12/2019 0.50 mg allergy 12/12/2019 0.50 mg allergy 11/17/2019 0.50 mL allergy 11/17/2019 0.50 mL allergy 10/17/2019 0.50 mg allergy 10/17/2019 0.50 mg allergy 08/24/2019 0.50 mL allergy 08/24/2019 0.50 mL allergy 07/04/2019 0.50 mg allergy 07/04/2019 0.50 mg allergy 04/28/2019 0.50 mL allergy 04/28/2019 0.50 mL allergy 04/14/2019 0.35 mL allergy 04/14/2019 0.35 mL allergy 04/06/2019 0.5 mL allergy 04/06/2019 0.5 mL allergy 03/02/2019 0.20 mg allergy 03/02/2019 0.20 mg allergy 02/09/2019 0.5 mL allergy 02/09/2019 0.5 mL allergy 01/05/2019 0.50 mL allergy 01/05/2019 0.50 mL allergy 12/09/2018 0.5 mg allergy 12/09/2018 0.5 mg allergy 11/10/2018 0.5 mg allergy 11/10/2018 0.5 mg allergy 10/07/2018 0.5 mL allergy 10/07/2018 0.5 allergy 09/10/2018 0.5 mg allergy 09/10/2018 0.35 mg allergy 08/17/2018 0.2 mL allergy 08/17/2018 0.2 mL allergy 06/03/2018 0.5 mg allergy 06/03/2018 0.5 mg allergy 05/11/2018 0.50 mL allergy 05/11/2018 0.50 mL allergy 04/08/2018 0.50 mg allergy 04/08/2018 0.50 mg allergy 01/13/2018 0.50 mL allergy 01/13/2018 0.50 mL allergy 12/31/2017 0.20 mL allergy 12/31/2017 0.20 mL allergy 12/14/2017 0.50 mL allergy 12/14/2017 0.50 mL allergy 11/24/2017 0.5 mL allergy 11/24/2017 0.5 mL allergy 11/02/2017 0.50 mg allergy 11/02/2017 0.50 mg allergy 10/11/2017 0.5 mL allergy 10/11/2017 0.5 mL allergy 09/02/2017 0.50 mL allergy 09/02/2017 0.50 mL allergy 08/06/2017 0.35 mg allergy 08/06/2017 0.35 mg allergy 07/20/2017 0.2 mL allergy 07/20/2017 0.20 mL allergy 05/12/2017 0.50 mL allergy 05/12/2017 0.50 mL allergy 04/05/2017 0.50 mL allergy 03/10/2017 0.50 mL allergy 03/10/2017 0.50 mL allergy 02/22/2017 0.5 mL allergy 02/22/2017 0.5 mL allergy 02/10/2017 0.35 mL allergy 02/10/2017 0.35 mL allergy 01/27/2017 0.20 mL allergy 01/27/2017 0.20 mL allergy 01/04/2017 0.50 mL allergy 01/04/2017 0.50 mL allergy 12/24/2016 0.50 mL allergy 12/24/2016 0.50 mL allergy 11/12/2016 0.50 mL allergy [...] 0.50 mL allergy 08/19/2016 0.50 mL allergy 07/28/2016 0.35 mL allergy 07/28/2016 0.35 mL allergy 07/24/2016 0.30 mL allergy 07/24/2016 0.30 mL allergy 07/06/2016 0.20 mL allergy 07/06/2016 0.20 mL allergy 06/30/2016 0.15 mL allergy 06/30/2016 0.15 mL allergy 06/25/2016 0.10 mL allergy 06/25/2016 0.10 mL allergy 05/27/2016 0.40 mL allergy 05/27/2016 [...] 0.10 mL allergy 01/10/2016 0.10 mL allergy 12/21/2015 0.10 mL allergy 12/21/2015 0.10 mL allergy 12/09/2015 0.5 mL allergy 12/09/2015 0.5 mL allergy 12/02/2015 0.50 mL allergy 12/02/2015 0.50 mL allergy 11/12/2015 0.40 mL allergy 11/12/2015 0.40 mL allergy 10/23/2015 0.30 mL allergy 10/23/2015 [...] allergy 04/10/2009 0.50 allergy 04/10/2009 0.50 allergy 04/19/2008 0.5 allergy 04/19/2008 0.5 allergy 04/16/2008 0.50 allergy 04/16/2008 0.50 allergy 04/11/2008 0.45 allergy 04/11/2008 0.45 allergy 04/09/2008 0.4 allergy 04/09/2008 0.4 Medical (General) History Medical History History ICD Code chronic neck pain-cervical spondylosis w ith c 6- herniation smoking COPD hyperlipidemia 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 Cevallos Declines all immunizations [...] Fang ORIF bilateral distal radial fractures @ [facility]-Dr Goodman 02/21/2014 plate removed from left wrist 08/2014 hammer toe 07/15/15 nodule removed from throat-Dr Fang 12/27 C-scope/ Allran/ adenomatous polyp 2019 Cataract Surgery - Right Eye 07/2023 C-scope/ Allran 2023 Sinus surgery/ Dr. Tilley 12/2024 Hospitalization History Reason Date(Month/Year) [facility] ER-broken right and left wrist 03/03
[2025-07-24 11:43] LABS: Alanine Aminotransferase 20 U/L (12-78); Albumin Level 3.9 g/dl (3.5-5.0); Albumin/Globulin Ratio 1.1 (1.1-1.8); Alkaline Phosphatase 121 U/L (38-126); Anion Gap 8.1 mEq/L (5-15); Aspartate Amino Transferase 38 U/L (14-36); Bilirubin,Total 0.5 mg/dl (0.2-1.3); Blood Urea Nitrogen 5 mg/dl (7-17); Calcium 9.4 mg/dl (8.4-10.2); Carbon Dioxide 31 mmol/L (22.0-30.0); Chloride 101 mmol/L (98-107); Cholesterol 211 mg/dl (140-200); Creatinine,Serum 0.60 mg/dl (0.52-1.04); Estimated Glomerular Filt Rate 100 ml/min (>60); GFR (African American) 121 ML/MIN (>60); Globulin 3.4 g/dL (1.3-3.2); Glucose 95 mg/dl (74-100); HDL Cholesterol 80 mg/dl (40-60); Potassium 4.1 mmoL/L (3.5-5.1); Sodium 136 mmol/L (136-145); Total Protein,Serum 7.3 g/dl (6.3-8.2); Triglycerides 111 mg/dl (30-150)
== END 2025-07-24 23:59 | disposition home or self-care (01) ==
PROVIDERS: PCP Family Medicine; Visit Provider Family Medicine
DX: E78.5 Hyperlipidemia, unspecified (principal)
CPT/HCPCS: 36415; 80053; 80061

== ENCOUNTER 2025-08-01 10:17 | Outpatient (CLI) | payer OTHER, SELFPAY ==
--- OUTSIDE RECORDS SUMMARY | 2024-04-20 09:10 | XMS_ITS ---
Author Organization [facility] Address [address] [facility] [address] [place] [id number] Care Team Providers Care Librarian Specialist Name Role Phone GeraldGriselda Primary Care Provider [phone] Allergies Allergen (clinical drug ingredient) Drug/Non Drug Allergy documented on EMR Reaction Allergy Type Onset Date Status Non-steroidal anti-inflammatory agent (FN) NSAIDs stomach cramping Drug Allergy Active Results Component Value Reference Range Notes Opiates, Urine, Quantitative Reviewed date:07/28/2024 11:44:10 AM Interpretation: Performing Lab: Notes/Report: Test performed by [facility] [address] [place] [address] , [address], [place] [address] Joe Manzanares MD, Clerical Car Checker CLIA: [id number] 6-acetylmorphine <10 <10 ng/mL This test was developed and its performance characteristics are determined by [facility] clinical laboratories. It has not been cleared [...] 07/27/24 Performing Lab: Notes/Report: Test performed by [facility] [address] [place] [address] , [address], [place] [address] Joe Manzanares MD, Clerical Car Checker CLIA: [id number] Amphetamines NEGATIVE NEGATIVE Barbiturates NEGATIVE NEGATIVE Benzodiazepines NEGATIVE NEGATIVE Cannabinoids NEGATIVE NEGATIVE Cocaine Metabolites NEGATIVE NEGATIVE Oxycodone POSITIVE NEGATIVE Methadone NEGATIVE NEGATIVE Opiates NEGATIVE NEGATIVE Phencyclidine NEGATIVE NEGATIVE Propoxyphene NEGATIVE NEGATIVE Immunoassay Drug Screen Breese Values See Below Please see the Directory [...] 04/20/2024 Encounters Encounter Location Date Provider Diagnosis [facility] [address] [facility] [address] [place] [id number] 04/20/2024 Griselda Duarte Chronic pain syndrom e [...] [address], [place], [id number], Progress Notes * TITA BENNETTB:1960 ( 65 yo F)Acc No.[id number]:04/20/2024 Progress Notes Patient: KATIE HILLS Provider: Griselda Duarte M.D. :1960 A ge:63 Y S ex:Female Date:04/20/2024 Address:[address] [place] [address] [place], [id number] Subjective: * Chief Complaints: * 1 . 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 * Procedure Codes: * Electronic signature of Griselda Duarte MD on 08/01/2025 at 10:20 AM EST Sign off status: Pending * Provider: Griselda Daurte M.D. Date: 0 04/20/2024 Generated for Printi ng/Faxing/eTransmitting on: 10/01/2024 10:20 AM EST History and Physical Notes * HPI (History of Present Illness) Category Sub-Category Detail Notes Category Not es HPI Patient is here today for a 3 mo [facility] check up. Pt sts that she has [...]
--- OUTSIDE RECORDS SUMMARY | 2024-07-27 08:45 | XMS_ITS ---
Author Organization [facility] Address 1210 [facility] [address] [place] [phone] Care Team Providers Care Doorperson Name Role Phone Griselda Duarte Primary Care [...] Provider Diagnosis [facility] [address], [place] [phone] 07/27/2024 Griselda Duarte Chronic pain syndrom e [...] [address], [place], [id number], Progress Notes * TITA BENNETTB:1960 ( 65 yo F)Acc No.[id number]:07/27/2024 Progress Notes Patient: KATIE HILLS Provider: Griselda Duarte M.D. :1960 A ge:64 Y S ex:Female Date:07/27/2024 Address:[address] [place] [address] [place], [id number] Subjective: * Chief Complaints: * 1 . 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 * Procedure Codes: * Electronic signature of Griselda Duarte MD on 08/01/2025 at 10:20 AM EST Sign off status: Pending * Provider: Griselda Duarte M.D. Date: 09/26/2023 [facility]ax[facility]/eTransmitting on: 10/01/2024 10:20 AM EST History and Physical Notes * HPI (History of Present Illness) Category Sub-Category Detail Notes Category Not es HPI Patient is here today for a 3 mo [facility] check up. Pt sts [...]
--- OUTSIDE RECORDS SUMMARY | 2024-08-29 05:00 | XMS_ITS ---
Author Organization [facility] Address 1210 [facility] [address] [place] [id number] Care Team Providers Care Manager Clinical Informatics Name Role Phone Griselda Duarte Primary Care Provider Allergies Allergen (clinical drug ingredient) Drug/Non Drug Allergy documented on EMR Reaction Allergy Type Onset Date Status Non-steroidal anti-inflammatory agent (FN) NSAIDs stomach cramping Drug Allergy Active REASON FOR VISIT refills, swollen, red finger Medications Medication SIG (Take, Route, Frequency, Duration) Notes Start Date End Date Status Neurontin 800 MG 1 tab(s) Qam, 2 tab( s) Qpm orally tid Not-Taking Xolair 150 MG 300 mg subcutaneousl y every 4 weeks Not-Taking Fosamax 70 MG 1 tab(s) orally once a week Not-Taking Zanaflex 4 MG 1 tab(s) orally tid 03/15/2020 Not-Taking Cephalexin 500 MG 1 capsule Orally Two times a day 10/05/2023 Not-Taking Imitrex 100 MG take 1 tablet by flakita th as directed Active Ambien 10 MG 1 tab(s) orally at bedtime 08/24/2023 Active Topamax 100 MG 1 tablet Orally twic e a day; Duration: 90 days Active MS Contin 60 MG 1 tab(s) orally ever y 12 hours 08/29/2024 Active methylPREDNISolone 4 MG as directed Orally 024 Not-Taking ProAir Digihaler 108 (90 Base) MCG/ACT 2 puff(s) inhaled 4 times a day 07/15/2012 Active Advair Diskus 250-50 MCG/ACT 1 puff(s) inhaled BID Active Mometasone Furoate 50 MCG/ACT 2 spray(s) intranasally once a day; Duration: 30 day(s) Active HYDROcodone-Acetaminophen 7.5-325 MG 1 tab(s) orally four times a day as needed 08/29/2024 Active Alendronate Sodium 70 MG 1 tablet 30 min utes before the first food, beverage or medicine of the day with plain water Orally once a week 08/29/2024 Active Fasenra 30 MG/ML as directed subcutaneously every 8 weeks Active Amoxicillin-Pot Clavulanate 875-125 MG 1 tablet Orally every 12 hrs 08/29/2024 Active Social History Tobacco Use: Social History Observation Description Date Details (start date - stop date) Former Smoker NA - NA CURRENT TOBACCO USE: Question Answer Notes Are you a: former smoker Vital Signs Blood pressure systolic 110 mm Hg 08/29/20 24 Blood pressure diastolic 78 mm Hg 024 Heart Rate 62 /min 08/29/2024 Height 65.50 in 08/29/2024 Weight 108.4 lbs 08/29/2024 BMI 17.76 kg/m2 08/29/2024 Encounters Encounter Location Date Provider Diagnosis A-[place] [address] [id number] 08/29/2024 Griselda Duarte Chronic pain syndrom e G89.4 ; Abscess L02.91 ; Cervicalgia M54.2 and Osteopenia M85.80 Assessments Encounter Date Diagnosis (ICD Code) Assessment Notes Treatment Notes Treatment Clinical Notes Section Notes 08/29/2024 Chronic pain syndrome (ICD-10 - G89.4) 08/29/2024 Abscess (ICD-10 - L02.91) 08/29/2024 Cervicalgia (ICD-10 - M54.2) 08/29/2024 Osteopenia (ICD-10 - M85.80) She informs me that she likely will not take the medication. She is advised otherwise and to also continue her calcium and vitamin D with plans to repeat DEXA scan in 2 years. Plan Of Treatment Medication Medication Name Sig Start Date Stop Date Notes MS Contin 60 MG 1 tab(s) orally ever y 12 hours 08/29/2024 HYDROcodone-Acetaminophen 7.5-325 MG 1 tab(s) orally four times a day as needed 08/29/2024 Alendronate Sodium 70 MG 1 tablet 30 min utes before the first food, beverage or medicine of the day with plain water Orally once a week 08/29/2024 Amoxicillin-Pot Clavulanate 875-125 MG 1 tablet Orally every 12 hrs 08/29/2024 Treatment Notes Assessment Notes Osteopenia She informs me that she likely will not take the medication. She is advised otherwise and to also continue her calcium and vitamin D with plans to repeat DEXA scan in 2 years. Next Appt Details Follow Up: 3 Months, Reason: Provider Name:Griselda Ventura, 08/14/2025 01:30:00 PM, [address], [place], [place], [id number], Progress Notes * JUAN TITAB:1960 ( 65 yo F)Acc No.[id number]:08/29/2024 Progress Notes Patient: KATIE HILLS Provider: Griselda Duarte M.D. :1960 A ge:64 Y S ex:Female Date:08/29/2024 Address:[address] [place] [address] KATI AMEZQUITA, [id number] Subjective: * Chief Complaints: * 1 . Refills, swollen, red finger. * HPI: W rist/Hand: 64 year old female presents with c/o swelling P t c/o pain and swelling in the right hand, middle finger. Pt sts that her finger has been swollen for about a week. She sts she has been using ice but is unsure what it causing this. c/o redness. H PI: She is also in need of refill of maintenance medication. R heumatology: She had a recent bone density test by her FISH NET STRINGER. Please refer to copy in chart. This shows osteopenia that is slightly worse than her last reported 2 years ago. She was previously prescribed Fosamax but discontinued it. She is taking calcium with vitamin D supplement. * ROS: D ERMATOLOGY: no R adrian. n o H angel luis. N EUROLOGY: no H eadache. n o D izziness. U ROLOGY: no D ifficulty urinating. n o B lood in urine. 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 Objective: * Vitals: W t:108.4, Temp:98.1, BP:110/78, HR:62, Nurse:PHYLLIS, Ht: 65.50, BMI:17.76. * Examination: G eneral Examination: General Appearance: N AD. E xtremities: t here is marked swelling, induration and r edness around the DIP joint of the right middle finger. On the ulnar side there appears to be an area that is pointing. There is marked tenderness..? * Physical Examination: P ROCEDURE: Finger is prepped with Betadine. Using ethylene glycol for anesthesia, a stab wound is made with a #11 blade with return of mostly blood. Assessment: * Assessment: 1. A bscess - L02.91 (Primary) 2 . C hronic pain syndrome - G89.4 ? 3 . C ervicalgia - M54.2 4 . O steopenia - M85.80 Plan: * Treatment: 2. C hronic pain syndrome Refill MS Contin Tablet Extended Release, 60 MG, 1 tab(s), orally, every 12 hours, 60, Refills 0.? 3. C ervicalgia Refill HYDROcodone-Acetaminophen Tablet, 7.5-325 MG, 1 tab(s), orally, four times a day as needed, 24, Refills 0. 4. O steopenia Start Alendronate Sodium Tablet, 70 MG, 1 tablet 30 minutes before the first food, beverage or medicine of the day with plain water, Orally, once a week, 4, Refills 5. Notes: She informs me that she likely will not take the medication. She is advised otherwise and to also continue her calcium and vitamin D with plans to repeat DEXA scan in 2 years. * Procedure Codes: 1 0060 INCISION AND DRAINAGE OF ABSCESS,CYST,CARBUNCLE,PARONYCHIA SIMPLE * Follow Up: 3 Months * Images: Billing Information: * Visit Code: 59088 Office Visit, Est Pt., Level 3. * Procedure Codes: 75274 INCISION AND DRAINAGE OF ABSCESS,CYST,CARBUNCLE,PARONYCHIA SIMPLE. * Electronic signature of Griselda Duarte MD on 08/01/2025 at 10:21 AM EST Sign off status: Pending * Provider: Griselda Duarte M.D. Date: 10/30/2023 Generated for Garth naidu/Lorene/Sheeba on: 10/01/2024 10:21 AM EST History and Physical Notes * HPI (History of Present Illness) Category Sub-Category Detail Notes Category Not es Wrist/Hand redness swelling Pt c/o pain and swel ling in the right hand, middle finger. Pt sts that her finger has been swollen for about a week. She sts she has been using ice but is unsure what it causing this Physical Examination Category Sub-Category Detail Notes Section Note s PROCEDURE: Fing er is prepped with Betadine. Using ethylene glycol for anesthesia, a stab wound is made with a #11 blade with return of mostly blood. Examination Category Sub-Category Detail Notes Category Not es General Examination Extremities: there is mar ked swelling, induration and redness around the DIP joint of the right middle finger. On the ulnar side there appears to be an area that is pointing. There is marked tenderness. General Appearance: NAD
--- OUTSIDE RECORDS SUMMARY | 2024-09-01 11:00 | XMS_ITS ---
Author Organization [facility] Address 1210 [facility] [address] [place] [phone] Care Team Providers Care Sustainable Design Coordinator Name Role Phone Griselda Duarte Primary Care Provider [phone] Gibson Morgan Unavailable [phone] Allergies Allergen (clinical drug ingredient) Drug/Non Drug [...] Encounter Location Date Provider Diagnosis [facility] 1210 [facility] 36 [facility] [address] [place] [id number] 09/01/2024 Gibson Morgan Cellulitis of finger of [...] repo rt progress, Reason: Provider Name:Griselda Ventura, 08/14/2025 01:30:00 PM, 1210 [facility] 36 [facility], [address], [place], [phone], Progress Notes * CLAUDIATITA CSATROB:1960 ( 65 yo F)Acc No.[id number]:09/01/2024 Progress Notes Patient: KATIE HILLS Provider: Dusty Morgan M.D. 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 * Procedure Codes: * Electronic signature of Trudi Morgan MD on 08/01/2025 at 10:19 AM EST Sign off status: Pending * Provider: Dusty Morgan M.D. Date: 11/02/2023 Generated for Garth naidu/Lorene/Johnitting on: 10/01/2024 10:19 AM EST History and Physical Notes * [...]
--- OUTSIDE RECORDS SUMMARY | 2024-10-26 08:45 | XMS_ITS ---
Author Organization [facility] Address 1210 [facility] [address] [place] [phone] Care Team Providers Care Slitter Creaser Slotter Helper Name Role Phone Griselda Duarte Primary Care [...] W/U Status Risk Notes Problem Chronic bronchitis (78358975) Chronic bronchitis (J42) Active confirmed Vital Signs Blood pressure systolic 128 mm Hg 10/26/19 25 Blood pressure diastolic 70 mm Hg 025 Heart Rate 70 /min 10/26/2024 Height 65.50 in 10/26/2024 Weight 103.8 lbs 10/26/2024 BMI 17.01 kg/m2 10/26/2024 Encounters Encounter Location Date Provider Diagnosis [place] [facility] 36 [facility] [address] [place] [phone] 10/26/2024 Griselda Duarte Chronic bronchitis J 42 [...] Name:Griselda Ventura, 08/14/2025 01:30:00 PM, [address] [place] [facility] 36 [facility], [address], [place], [phone], Progress Notes * SUSIE BENNETT:1960 ( 65 yo F)Acc No.[id number]:10/26/2024 Progress Notes Patient: KATIE HILLS Provider: Griselda Duarte M.D. :1960 A ge:64 Y S ex:Female Date:10/26/2024 Address:[facility] [id number] Subjective: * Chief Complaints: * 1 . 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 Cevallos, Declines all immunizations [...] 01/2014, ORIF bilateral distal radial fractures @ [facility]-Dr Goodman 02/21/2014, plate removed from left [...] * Images: Billing Information: * Visit Code: 50322 Office Visit, Est Pt., Level 3. * Procedure Codes: 83335 PULSE OX. 3074F SYST BP LT 130 MM HG. 3078F DIAST BP < 80 MM HG. * Electronic signature of Griselda Duarte MD on 08/01/2025 at 10:19 AM EST Sign off status: Pending * Provider: Griselda Duarte M.D. Date: 0 10/26/2024 Generated for Garth naidu/Lorene/Sheeba on: 1 10/01/2024 10:19 AM EST History and Physical [...]
--- OUTSIDE RECORDS SUMMARY | 2025-02-08 09:00 | XMS_ITS ---
Author Organization [facility] Address [address] [facility] [address] [place] [id number] Care Team Providers Care Cushion Maker Hand Name Role Phone Griselda Duarte Primary Care Provider [phone] Allergies Allergen (clinical drug ingredient) Drug/Non Drug Allergy documented on EMR Reaction Allergy Type Onset Date Status Non-steroidal anti-inflammatory agent (FN) NSAIDs stomach cramping Drug Allergy Active REASON FOR VISIT 3 month f/u, Needs labs, mammogram, bone density screening, & low dose chest CT Medications Medication SIG (Take, Route, Frequency, Duration) Notes Start Date End Date Status SUMAtriptan Succinate 100 mg TAKE 1 TABLET DIRECTED Ac tive Alendronate Sodium 70 MG 1 tablet 30 minutes before the first food, beverage or medicine of the day with plain water Orally once a week 08/29/2024 Active Ambien 10 MG 1 tab(s) orally at bedtime 08/24/2023 Active Topamax 100 MG 1 tablet Orally twic e a day; Duration: 90 days Active Amoxicillin-Pot Clavulanate 875-125 MG 1 tablet Orally Two times a day 10/26/2024 Not-Taking Fasenra 30 MG/ML as directed subcutaneously every 8 weeks Active Mometasone Furoate 50 MCG/ACT 2 spray(s) intranasally once a day; Duration: 30 day(s) Active ProAir Digihaler 108 (90 Base) MCG/ACT 2 puff(s) inhaled 4 times a day 07/15/2012 Active Advair Diskus 250-50 MCG/ACT 1 puff(s) inhaled BID Active HYDROcodone-Acetaminoph en 7.5-325 MG 1 tab(s) orally four times a day as needed 02/08/2025 Active MS Contin 60 MG 1 tab(s) orally ever y 12 hours 02/08/2025 Active Social History Tobacco Use: Social History Observation Description Date Details (start date - stop date) Former Smoker NA - NA CURRENT TOBACCO USE: Question Answer Notes Are you a: former smoker Vital Signs Blood pressure systolic 100 mm Hg 02/09/20 25 Blood pressure diastolic 70 mm Hg 025 Height 65.50 in 02/08/2025 Weight 105.4 lbs 02/08/2025 BMI 17.27 kg/m2 02/08/2025 Encounters Encounter Location Date Provider Diagnosis [place] [address] [facility] [address] [place] [id number] 02/08/2025 Griselda Duarte Chronic pain syndrom e G89.4 ; Cervicalgia M54.2 ; Osteopenia M85.80 ; Fatigue R53.83 ; Tobacco use disorder F17.200 and Osteoporosis M81.0 Assessments Encounter Date Diagnosis (ICD Code) Assessment Notes Treatment Notes Treatment Clinical Notes Section Notes 02/08/2025 Chronic pain syndrome (ICD-10 - G89.4) 02/08/2025 Cervicalgia (ICD-10 - M54.2) 02/08/2025 Osteopenia (ICD-10 - M85.80) Continue her calcium and vitamin D with plans to repeat DEXA scan in 2 years. 02/08/2025 Fatigue (ICD-10 - R53.83) 02/08/2025 Tobacco use disorder (ICD-10 - F17.200) 02/08/2025 Osteoporosis (ICD-10 - M81.0) Plan Of Treatment Medication Medication Name Sig Start Date Stop Date Notes HYDROcodone-Acetaminophen 7.5-325 MG 1 tab(s) orally four times a day as needed 02/08/2025 MS Contin 60 MG 1 tab(s) orally ever y 12 hours 02/08/2025 Treatment Notes Assessment Notes Osteopenia Continue her calcium and vitamin D with plans to repeat DEXA scan in 2 years. Next Appt Details Follow Up: 3 Months, Reason: Provider Name:Griselda Ventura, 08/14/2025 01:30:00 PM, [address], [place], [phone], Medications Administered Medication Instructions Date of Administration Dosage Notes B-12 02/08/2025 1 mL Progress Notes * TITA BENNETTB:1960 ( 65 yo F)Acc No.[id number]:02/08/2025 Progress Notes Patient: KATIE HILLS Provider: Griselda Duarte M.D. :1960 A ge:64 Y S ex:Female Date:02/08/2025 Address:[address] [place], [place] [id number] Subjective: * Chief Complaints: * 1 . 3 month f/u. 2. Needs labs, mammogram, bone density screening, & low dose chest CT. * HPI: H PI: 64 year old female presents with c/o Patient is here today for?Pt is here today for a 3 month check up. E NT/respiratory: Since her last visit, she has undergone endoscopic sinus surgery by Dr. Tilley about 10 days ago. She is still having some nasal congestion. She continues to follow with Dr. Cheatham. N li: Neck pain remains about the same. Some days are worse than others. C onstitutional: She complains of fatigue and requested B12 injection. * ROS: C ARDIOLOGY: no D izziness. n o C hest pain. G ASTROENTEROLOGY: no N ausea. n o V omiting. U ROLOGY: no D ifficulty urinating. n o B lood in urine. 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 Tilley 12/2024. * Hospitalization/Major Diagno stic Procedure: H MH [...] 1 tab(s) orally at bedtime , Taking Alendronate Sodium 70 MG Tablet 1 tablet 30 minutes before the first food, beverage or medicine of the day with plain water Orally once a week , Taking Topamax 100 MG Tablet 1 tablet Orally twice a day , Taking MS Contin 60 MG Tablet Extended Release 1 tab(s) orally every 12 hours , Taking HYDROcodone-Acetaminophen 7.5-325 MG Tablet 1 tab(s) orally four times a day as needed , Taking SUMAtriptan Succinate 100 mg Tablet TAKE 1 TABLET DIRECTED , Not-Taking Amoxicillin-Pot Clavulanate 875-125 MG Tablet 1 tablet Orally Two times a day , Medication List reviewed and reconciled with the patient * Allergies: N SAIDs: stomach cramping. Objective: * Vitals: W t: 105.4, Temp: 98.0, BP: 100/70, Nurse: rosie, Ht: 65.50, BMI:17.27. * Examination: G eneral Examination: General Appearance: [...] leg edema. Assessment: * Assessment: 1. C hronic pain syndrome - G89.4 (Primary) 2 . C ervicalgia - M54.2 ? 3 . O steopenia - M85.80 4 . F atigue - R53.83 5 .?Tobacco use disorder - F17.200 6 . O steoporosis - M81.0 Plan: * Treatment: 2. C ervicalgia Refill HYDROcodone-Acetaminophen Tablet, 7.5-325 MG, 1 tab(s), orally, four times a day as needed, 24, Refills 0. 3. O steopenia Notes: Continue her calcium and vitamin D with plans to repeat DEXA scan in 2 years. * Therapeutic Injections: B-12 : 1 mL (Route: Intramuscular) given by ROSIE Hassan on left gluteus (Cervicalgia, Osteopenia) * Procedure Codes: J 3420 -12, 37632 ADMINISTRATION OF INJECTION, G8783 BP SCR PRFRM RCMDD DEFIND SCR INTVL, 3074F SYST BP LT 130 MM HG, 3078F DIAST BP < 80 MM HG * Follow Up: 3 Months * Images: Billing Information: * Visit Code: 73648 Office Visit, Est Pt., Level 3. Modifiers: 25 * Procedure Codes: J3420 12. 77988 ADMINISTRATION OF INJECTION. G8783 BP SCR PRFRM RCMDD DEFIND SCR INTVL. 3074F SYST BP LT 130 MM HG. 3078F DIAST BP < 80 MM HG. * Electronic signature of Griselda Duarte MD on 08/01/2025 at 10:19 AM EST Sign off status: Pending * Provider: Griselda Duarte M.D. Date: 0 02/08/2025 Generated for Printi ng/Maikolg/eTransmitting on: 1 10/01/2024 10:19 AM EST History and Physical Notes * HPI (History of Present Illness) Category Sub-Category Detail Notes Category Not es HPI Patient is here today for Pt is here today for a 3 month check up Examination Category Sub-Category Detail Notes Category Not [...]
--- OUTSIDE RECORDS SUMMARY | 2025-05-10 06:00 | XMS_ITS ---
Author Organization [facility] Address [address] [facility] [address] [place] [id number] Care Team Providers Care Automatic Spinning Lathe Operator Name Role Phone Griselda Duarte Primary [...] Provider Diagnosis [place] [address] [place] [id number] 05/10/2025 Griselda Duarte Chronic pain syndrom e [...] 08/14/2025 01:30:00 PM, [address] [facility], [address], [place], [place], [id number], Progress Notes * TITA BENNETTB:1960 ( 65 yo F)Acc No.[id number]:05/10/2025 Progress Notes Patient: KATIE H[place]S Provider: Griselda Duarte M.D. :1960 A ge:64 Y S ex:Female Date:05/10/2025 Address:[address] [place] [address] [place], [id number] Subjective: * Chief Complaints: * 1 . [...] Ventura has closed his Allergy practice in [place] and she has not established care with a new rn private duty. 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 [...] * Images: Billing Information: * Visit Code: 03759 Office Visit, Est Pt., Level 4. * Procedure Codes: * Electronic signature of Griselda Duarte MD on 08/01/2025 at 10:19 AM EST Sign off status: Pending * Provider: Griselda Duarte M.D. Date: 0 05/10/2025 Generated for Garth naidu/Lorene/eTbakarismitting on: 1 10/01/2024 10:19 AM EST History [...]
--- OUTSIDE RECORDS SUMMARY | 2025-08-01 10:21 | XMS_ITS | Patient Health Record ---
[facility] Organization [facility] Address [address] [place] [id number] Care Team Providers Care Wire Tinner Name Role Phone Griselda Duarte Primary Care Provider Gibson Morgan Unavailable [phone] Allergies Allergen (clinical drug ingredient) Drug/Non Drug Allergy documented on EMR Reaction Allergy Type Onset Date Status Non-steroidal anti-inflammatory agent (FN) NSAIDs stomach cramping Drug Allergy Active Results Component Value Reference Range Notes H-Lipid Panel Reviewed date:07/26/2025 08:28:20 AM Interpretation:LDL 101; HDL 80 Performing Lab: Notes/Report: Patient Fasting? Y TRIG 111 30-150 mg/dl CHOL 211 140-200 mg/dl DLDL 101.30 100-129 mg/dL VLDL 22 0-40 mg/dL HDL 80 40-60 mg/dl CHLHDL 2.6 1-3.5 H-CMP Reviewed date:07/26/2025 08:28:20 AM Interpretation: Performing Lab: Notes/Report: NA 136 136-145 mmol/L K 4.1 3.5-5.1 mmoL/L CL 101 98-107 mmol/L CO2 31 22.0-30.0 mmol/L GAP 8.1 5-15 mEq/L BUN 5 7-17 mg/dl CREATT 0.60 0.52-1.04 mg/dl GFRAA 121 >60 ML/MIN EGFR 100 >60 ml/min GLU 95 74-100 mg/dl CA 9.4 8.4-10.2 mg/dl BILIT 0.5 0.2-1.3 mg/dl AST 38 14-36 U/L ALT 20 12-78 U/L TP 7.3 6.3-8.2 g/dl ALB 3.9 3.5-5.0 g/dl GLOB 3.4 1.3-3.2 g/dL AGRATIO 1.1 1.1-1.8 ALP 121 38-126 U/L Bone density Reviewed date:06/12/2025 09:04:17 AM Interpretation:Osteoporosis [...] Vaccine Route Administration Date Status Comme nts Shingrix Unknown 11/24/2020 Administered Shingrix Unknown 01/24/2021 Administered Tetanus Tdap-Adacel (over 7yrs) IM Intramuscular 08/16/2012 Administered xAdministration of injection IM Intramuscular 08/03/2016 Administered xFlu shot-36 months and older IM Intramuscular 06/05/2011 Administered xFlu shot-36 months and older IM Intramuscular 06/23/2010 Administered xFlu shot-36 months and older IM Intramuscular 07/02/2008 Administered xFlu shot-36 months and older IM Intramuscular 06/29/2007 Administered xFlu shot-36 months and older IM Intramuscular 07/24/2006 Administered xFluzone (6mos and older)-trivalent ID Intradermal 06/20/2014 Administered xFluzone Intradermal (18-64yrs)-trivalent ID Intradermal 06/29/2013 Administered xFluzone Intradermal (18-64yrs)-trivalent ID Intradermal 06/15/2012 Administered Morphine 10mg/ml IM Intramuscular 05/25/2006 Administered Fluzone Intradermal Quad private(18-64yrs) ID Intradermal 06/10/2016 Administered Fluzone Quad (6months&older) IM Intramuscular 07/07/2021 Administered Fluzone Quad (6months&older) IM Intramuscular 05/23/2020 Administered Fluzone Quad (6months&older) IM Intramuscular 06/13/2019 Administered Fluzone Quad (6months&older) IM Intramuscular 2018 Administered Given by MP Fluzone Quad (6months&older) IM Intramuscular 07/05/2017 Administered Fluzone Quad (6months&older) IM Intramuscular 05/21/2015 Administered Hepatitis A (adult) Unknown 01/27/2019 Administered PNEUMOVAX 23 VACCINE IM Intramuscular 2018 Administe red Given by MP PNEUMOVAX 23 VACCINE Unknown 04/08/2018 Pending PNEUMOVAX 23 VACCINE IM Intramuscular 07/09/2008 Administe red Prevnar (PCV13) IM Intramuscular 07/31/2014 Administered Social History Tobacco Use: Social History Observation Description Date Details (start date - stop date) Former Smoker NA - NA CURRENT TOBACCO USE: Question Answer Notes Are you a: former smoker Problems Problem Type SNOMED Code ICD Code Onset Dates Problem Status W/U Status Risk Notes Problem Insomnia (379834219) Insomnia (G47.00) Active confirmed Problem Solitary nodule of lung (825857166) Lung nodule (R91.1) Active confirmed Problem Anxiety (35411798) Anxiety (F41.9) Active confirmed Problem Osteopenia (467049158) Osteopenia (M85.80) Active confirmed Problem Seasonal allergy (933369605) Seasonal allergies (J30.2) Active confirmed Problem Cervicalgia (96596967) Cervicalgia (M54.2) Active confirmed Problem Primary insomnia (6053057) Primary insomnia (F51.01) Active confirmed Problem Chronic pain syndrome (112394795) Chronic pain syndrome (G89.4) Active confirmed Problem Allergic rhinitis (24048916) Allergic rhinitis, unspecified (J30.9) Active confirmed Problem Panlobular emphysema (1692214) Panlobular emphysema (J43.1) Active confirmed Problem Vaccination given (953147134) Encounter for immunization (Z23) Active confirmed Problem Migraine (62435224) Migraine without status migrainosus, not intractable, unspecified migraine type (G43.909) Active confirmed Problem Osteoporosis (90324869) Osteoporosis (M81.0) Active confirmed Problem Chronic bronchitis (82864614) Chronic bronchitis (J42) Active confirmed Problem Dyslipidemia (309607328) Dyslipidemia (E78.5) Active confirmed Problem Tobacco use (658208786) Tobacco use disorder (F17.200) Active confirmed Problem 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 Problem Allergic rhinitis (05897287) Non-seasonal allergic rhinitis, unspecified trigger (J30.89) Active confirmed Vital Signs Heart Rate 70 /min 10/26/2024 Blood pressure diastolic 70 mm Hg 05/10/2025 Height 65.50 in 05/10/2025 Blood pressure systolic 100 mm Hg 05/10/2025 Weight 106.2 lbs 05/10/2025 BMI 17.4 kg/m2 05/10/2025 Encounters Encounter Location Date Provider Diagnosis [facility] [address] [facility] [address] [facility] [address] [place], [place] [id number] 08/29/2024 R Coy Duarte Chronic pain syndrom e G89.4 ; Abscess L02.91 ; Cervicalgia M54.2 and Osteopenia M85.80 [facility] [address] [facility] [address] [place], [place] [id number] 09/01/2024 Gibson [place] Cellulitis of finger of right hand L03.011 [facility] [address] [facility] 36 [facility] [address] [place], [place] [id number] 10/26/2024 R Coy Gerald Chronic bronchitis J 42 ; Chronic pain syndrome G89.4 ; Cervicalgia M54.2 and Osteopenia M85.80 [facility] [address] [facility] [address] [place] [id number] 02/08/2025 R Coy Gerald Chronic pain syndrom e G89.4 ; Cervicalgia M54.2 ; Osteopenia M85.80 ; Fatigue R53.83 ; Tobacco use disorder F17.200 and Osteoporosis M81.0 [facility] [address] [facility] [address] [place] [id number] 05/10/2025 R Coy Gerald Chronic pain syndrom e G89.4 ; Cervicalgia M54.2 ; Osteopenia M85.80 ; Fatigue R53.83 ; Tobacco use disorder F17.200 ; Osteoporosis M81.0 ; Chronic obstructive pulmonary disease, unspecified J44.9 and Dyslipidemia E78.5 [facility] [address] [facility] [address] [place] [id number] 10/13/2024 R Coy Gerald Cervicalgia M54.2 an d Chronic pain syndrome G89.4 [facility] [address] [facility] [address] [place] [id number] 11/15/2024 R Coy Gerald Chronic pain syndrom e G89.4 and Cervicalgia M54.2 [facility] [address] [facility] [address] [place] [id number] 11/16/2024 R Coy Gerald [facility] [address] [facility] [address] [place] [id number] 12/11/2024 R Coy Gerald Chronic pain syndrom e G89.4 and Cervicalgia M54.2 [facility] [address] [facility] [address] [place] [id number] 03/19/2025 R Coy Gerald Chronic pain syndrom e G89.4 and Cervicalgia M54.2 [facility] [address] [facility] [address] [place] [id number] 04/19/2025 R Coy Gerald Chronic pain syndrom e G89.4 and Cervicalgia M54.2 [facility] [address] [place], [place] [id number] 05/17/2025 R Coy Gerald Chronic pain syndrom e G89.4 and Cervicalgia M54.2 [facility] [address] [facility] [address] [place], [place] [id number] 05/25/2025 R Coy Gerald [facility] [address] [facility] [address] [place], [place] [id number] 06/12/2025 R Coy Gerald [facility] [address] [facility] [address] [place], [place] [id number] 06/20/2025 R Coy Gerald Chronic pain syndrom e G89.4 and Cervicalgia M54.2 [facility] [address] [place], [place] [id number] 07/19/2025 R Coy Gerald Chronic pain syndrom e G89.4 and Cervicalgia M54.2 [facility] [address] [place] [id number] 07/26/2025 R Coy Gerald Assessments Encounter Date Diagnosis [...] 05/17/2025 Chronic pain syndrome (ICD-10 - G89.4) 06/20/2025 Chronic pain syndrome (ICD-10 - G89.4) 07/19/2025 Chronic pain syndrome (ICD-10 - G89.4) 05/17/2025 Cervicalgia (ICD-10 - M54.2) 07/19/2025 Cervicalgia (ICD-10 - M54.2) 06/20/2025 Cervicalgia (ICD-10 - M54.2) 05/10/2025 Cervicalgia (ICD-10 - M54.2) 03/19/2025 Cervicalgia (ICD-10 - M54.2) 04/19/2025 Cervicalgia (ICD-10 - M54.2) 02/08/2025 Osteopenia (ICD-10 - M85.80) Continue her calcium and vitamin D with plans to repeat DEXA scan in 2 years. 12/11/2024 Cervicalgia (ICD-10 - M54.2) 11/15/2024 Cervicalgia (ICD-10 - M54.2) 10/13/2024 Chronic pain syndrome (ICD-10 - G89.4) 08/29/2024 Cervicalgia (ICD-10 - M54.2) 10/26/2024 Cervicalgia (ICD-10 - M54.2) 08/29/2024 Osteopenia (ICD-10 [...] Dyslipidemia (ICD-10 - E78.5) Plan Of Treatment Pending Test Test Name Order Date Bone density 05/10/2025 CT Scan : Chest, low dose 05/10/2025 H-Lipid Panel 05/10/2025 H-CMP 05/10/2025 Next Appt Details Provider Name:Griselda Preston et, 08/14/2025 01:30:00 PM, [address] [facility], [address], [place], [place], [id number], Insurance Providers Payer Name Payer Address Payer Phone Subscriber Number Group Number Insured Name Patient Relationship to Insured Coverage Start Date Coverage End Date [facility] [id number] [place] [address] [id number] KATIE MARTINEZ Self - patient is the insured Medications Administered Medication Instructions Date of Administration Dosage Notes allergy 08/28/2015 0.1 mL allergy 08/28/2015 0.10 mL allergy 10/23/2015 0.30 mL allergy 10/23/2015 0.30 mL allergy 01/10/2016 0.10 mL allergy 01/10/2016 0.10 mL allergy 01/20/2016 0.15 mL allergy 01/20/2016 0.15 mL allergy 06/10/2016 0.05 mL allergy 06/10/2016 0.05 mL allergy 07/24/2016 0.30 mL allergy 07/24/2016 0.30 mL allergy 01/27/2017 0.20 mL allergy 01/27/2017 0.20 mL allergy 02/10/2017 0.35 mL allergy 02/10/2017 0.35 mL allergy 07/05/2017 0.50 mL allergy 07/05/2017 0.50 mL allergy 02/04/2018 0.50 mL allergy 02/04/2018 0.50 mL allergy 04/08/2018 0.50 mg allergy 04/08/2018 0.50 mg allergy 06/03/2018 0.5 mg allergy 06/03/2018 0.5 mg allergy 11/10/2018 0.5 mg allergy 11/10/2018 0.5 mg allergy 12/09/2018 0.5 mg allergy 12/09/2018 0.5 mg allergy 01/05/2019 0.50 mL allergy 01/05/2019 0.50 mL allergy 03/02/2019 0.20 mg allergy 03/02/2019 0.20 mg allergy 05/10/2019 0.5 mL allergy 05/10/2019 0.5 mL allergy 08/24/2019 0.50 mL allergy 08/24/2019 0.50 mL allergy 02/09/2020 0.50 mL allergy 02/09/2020 0.50 mL allergy 05/23/2020 0.5 mL allergy 05/23/2020 0.5 mL allergy 08/08/2020 0.35 mg allergy 08/08/2020 0.35 mg allergy 03/26/2021 0.35 mL allergy 03/26/2021 0.35 mL allergy 07/07/2021 0.5 mL allergy 07/07/2021 0.5 mL allergy 09/10/2021 0.5 mL allergy 09/10/2021 0.5 mL allergy 09/10/2021 0.5 mL allergy 12/23/2021 0.20 mL Vial #1 0.20 M L RA allergy 12/23/2021 Vial #2 0.20 m l SQ LA allergy 01/06/2022 0.35 mL allergy 01/06/2022 0.35 mL allergy 04/07/2022 0.5 mL allergy 04/07/2022 0.5 mL allergy 10/15/2022 allergy 03/12/2023 0.5 mL allergy 03/12/2023 0.5 mL allergy 03/31/2023 0.50 mL Mix #1 in Righ t arm allergy 03/31/2023 0.50 mL Mix #2 in left arm allergy 04/08/2023 .50 mL allergy 04/08/2023 0.50 mL B-12 02/08/2025 1 mL Depo- Medrol 40 mg/ml 05/21/2015 1.5 mL Dexamethasone 09/07/2017 1 mL Dexamethasone 11/18/2018 1 mL phenergan 25 mg/ml 05/25/2006 25 mg allergy 10/01/2020 0.50 mg allergy 10/01/2020 0.50 mg allergy 07/02/2020 0.20 mL allergy 07/02/2020 0.20 mL allergy 05/10/2020 0.50 mL allergy 05/10/2020 0.50 mL allergy 04/02/2020 0.50 mg allergy 04/02/2020 0.50 mg allergy 03/15/2020 0.50 mg allergy 03/15/2020 0.50 mg allergy 01/02/2020 0.35 mg allergy 01/02/2020 0.35 mg allergy 12/26/2019 0.20 allergy 12/26/2019 0.20 allergy 12/12/2019 0.50 mg allergy 12/12/2019 0.50 mg allergy 11/17/2019 0.50 mL allergy 11/17/2019 0.50 mL allergy 10/17/2019 0.50 mg allergy 10/17/2019 0.50 mg allergy 10/03/2019 0.50 mg allergy 10/03/2019 0.50 mg allergy 09/26/2019 .40 allergy 09/26/2019 .40 allergy 09/18/2019 0.30 mg allergy 09/18/2019 0.30 mg allergy 09/11/2019 0.20 mg allergy 09/11/2019 0.20 mg allergy 09/06/2019 0.10 mg allergy 09/06/2019 0.10 mg allergy 07/26/2019 allergy 07/26/2019 allergy 07/13/2019 0.50 allergy 07/13/2019 0.50 allergy 07/04/2019 0.50 mg allergy 07/04/2019 0.50 mg allergy 04/28/2019 0.50 mL allergy 04/28/2019 0.50 mL allergy 04/14/2019 0.35 mL allergy 04/14/2019 0.35 mL allergy 04/06/2019 0.5 mL allergy 04/06/2019 0.5 mL allergy 02/09/2019 0.5 mL allergy 02/09/2019 0.5 mL allergy 10/07/2018 0.5 mL allergy 10/07/2018 0.5 allergy 09/10/2018 0.5 mg allergy 09/10/2018 0.35 mg allergy 08/17/2018 0.2 mL allergy 08/17/2018 0.2 mL allergy 07/27/2018 0.5 mg allergy 07/27/2018 0.5 mg allergy 2018 0.5 mL Given by MP allergy 2018 0.5 mL Given by MP allergy 05/11/2018 0.50 mL allergy 05/11/2018 0.50 mL allergy 03/24/2018 0.5 mL allergy 03/24/2018 0.50 mL allergy 02/23/2018 0.50 mL allergy 02/23/2018 0.50 mL allergy 10/11/2017 0.5 mL allergy 10/11/2017 0.5 [...] 0.50 mL allergy 04/15/2017 0.50 mL allergy 04/05/2017 0.50 mL allergy 03/30/2017 0.5 mg allergy 03/30/2017 0.50 mg allergy 03/10/2017 0.50 mL allergy 03/10/2017 0.50 mL allergy 02/22/2017 0.5 mL allergy 02/22/2017 0.5 mL allergy 01/04/2017 0.50 mL allergy 01/04/2017 [...] 0.40 mL allergy 08/05/2016 0.40 mL allergy 07/28/2016 0.35 mL allergy 07/28/2016 0.35 mL allergy 07/15/2016 0.25 mL allergy 07/15/2016 0.25 mg allergy 07/06/2016 0.20 mL allergy 07/06/2016 0.20 [...] .20 mL allergy 02/13/2016 .20 mL allergy 12/21/2015 0.10 mL allergy 12/21/2015 0.10 mL allergy 12/09/2015 0.5 mL allergy 12/09/2015 0.5 mL allergy 12/02/2015 0.50 mL allergy 12/02/2015 0.50 mL allergy 11/12/2015 0.40 mL allergy 11/12/2015 0.40 mL allergy 10/10/2015 0.20 mg allergy 10/10/2015 0.29 mL allergy 09/30/2015 0.10 mL allergy 09/30/2015 0.10 mL allergy 09/25/2015 0.05 mL allergy 08/20/2015 0.25 mL allergy 08/20/2015 [...] 0.45 allergy 04/09/2008 0.4 allergy 04/09/2008 0.4 Dexamethasone 07/15/2012 Dexamethasone 01/14/2006 Dexamethasone 01/09/2006 1 mL Dexamethasone 05/23/2005 0.5 mL Dexamethasone 05/19/2005 1 mL Depo- Medrol 40 mg/ml 10/30/2014 1.5 mL Depo- Medrol 40 mg/ml 02/03/2007 1.5 mL allergy 06/22/2023 allergy 06/22/2023 allergy 02/19/2023 0.5 mL allergy 02/19/2023 0.5 mL allergy 01/22/2023 .50 mL Mix #1 right a rm allergy 01/22/2023 .50 mL Mix #2 Left ar m allergy 01/07/2023 0.50 mL allergy 01/07/2023 0.50 mL allergy 10/15/2022 allergy 09/04/2022 0.5 mL allergy 09/04/2022 0.5 mL allergy 08/20/2022 0.2 mL allergy 08/20/2022 0.2 mL allergy 06/16/2022 0.5 mL allergy 06/16/2022 0.5 mL allergy 05/22/2022 0.50 mL allergy 05/22/2022 0.50 mL allergy 03/03/2022 0.5 mL allergy 03/03/2022 0.5 mL allergy 02/06/2022 0.5 mL allergy 02/06/2022 0.5 mL allergy 11/20/2021 0.50 mL allergy 11/20/2021 0.50 mL allergy 10/07/2021 .50 mL allergy 10/07/2021 .50 mL allergy 06/17/2021 0.5 mL allergy 06/17/2021 0.5 mL allergy 05/07/2021 0.5 mL allergy 05/07/2021 0.5 mL allergy 04/03/2021 0.5 mL allergy 04/03/2021 0.5 mL allergy 03/13/2021 0.20 mL Given by Alicia Triplett allergy 03/13/2021 0.20 mL Shot given by Alicia Triplett allergy 02/27/2021 0.5 mL allergy 02/27/2021 0.5 mL allergy 02/12/2021 0.50 mL allergy 02/12/2021 0.50 mL allergy 12/30/2020 0.50 mg allergy 12/30/2020 0.50 mg allergy 12/17/2020 0.50 mg allergy 12/17/2020 0.5 mg allergy 12/03/2020 0.5 mL allergy 12/03/2020 0.5 mL allergy 01/13/2018 0.50 mL allergy 01/13/2018 0.50 mL allergy 12/31/2017 0.20 mL allergy 12/31/2017 0.20 mL allergy 12/14/2017 0.50 mL allergy 12/14/2017 0.50 mL allergy 11/24/2017 0.5 mL allergy 11/24/2017 0.5 mL allergy 11/02/2017 0.50 mg allergy 11/02/2017 0.50 mg Medical (General) History Medical History History ICD Code chronic neck pain-cervical spondylosis w ith c 6-7 herniation smoking COPD hyperlipidemia 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 Cevallos Declines all immunizations 06/2023; 10 2 024 Surgical History Surgery Date(Month/Year) lumbar microdiscectomy 2001 partial hysterectomy tonsillectomy D&C sinus surgery deviated septum surgery precancerous nodule removed from vocal c ords 02/2006 PE tubes 2005 Series of epidural steroid injections of lumbar spine replaced tubes both ears 09/28 right foot ( screws) 2009 C-scope/ Allran/ normal 06/2011 tube in right ear 2012 Repair of deviated septum - Dr. Fang ORIF bilateral distal radial fractures @ [facility]-Dr Goodman 02/21/2014 plate removed from left wrist 08/2014 hammer toe 07/15/15 nodule removed from throat-Dr Fang 12/27 C-scope/ Allran/ adenomatous polyp 2019 Cataract Surgery - Right Eye 07/2023 C-scope/ Allran 2023 Sinus surgery/ Dr. Tilley 12/2024 Hospitalization History Reason Date(Month/Year) [facility] ER-broken right and left wrist 03/03
--- NOTE | 2025-08-01 10:30 | MM_ITS ---
PROCEDURE INFORMATION: Exam: MG Bilateral Screening 3D Mammography Exam date and time: 08/01/2025 10:22 AM Age: 65 years old Clinical indication: Screening exam. TECHNIQUE: Imaging protocol: Bilateral Screening tomosynthesis and 2D mammography including computer-aided detection (CAD) when performed. COMPARISON: 1. MG MM DIG SCREENING MAMM BI W/CAD 07/24/2024 12:55 PM 2. MG MM DIG SCREENING MAMM BI W/CAD 07/02/2023 10:37 AM FINDINGS: MAMMOGRAPHY: Breast composition: The breasts are heterogeneously dense, which may obscure small masses. Mass: No suspicious masses. Architectural distortion: None. Calcifications: No suspicious calcifications. Asymmetric density: None. Skin thickening: None. Axillary adenopathy: None. IMPRESSION: No mammographic evidence of malignancy. Annual screening is recommended unless otherwise clinically indicated. ASSESSMENT: BI-RADS Category 1: Negative.
== END 2025-08-01 23:59 | disposition home or self-care (01) ==
LOC: RAD 10:17
PROVIDERS: PCP Family Medicine; Visit Provider Nurse Practitioner Obstetrics & Gynecology
DX: Z12.31 Encounter for screening mammogram for malignant neoplasm of breast (principal); R92.333 Mammographic heterogeneous density, bilateral breasts
CPT/HCPCS: 77063; 77067

== ENCOUNTER 2025-09-07 14:50 | Outpatient (CLI) | payer OTHER, SELFPAY ==
--- OUTSIDE RECORDS SUMMARY | 2024-04-20 09:10 | XMS_ITS ---
Author Organization [facility] Address [address] [facility] [address] [place] [id number] Care Team Providers Care Ortho/Prosthetic Aide Name Role Phone GeraldGriselda Primary Care Provider Allergies Allergen (clinical drug ingredient) Drug/Non Drug Allergy documented on EMR Reaction Allergy Type Onset Date Status Non-steroidal anti-inflammatory agent (FN) NSAIDs stomach cramping Drug Allergy Active Results Component Value Reference Range Notes Opiates, Urine, Quantitative Reviewed date:07/28/2024 11:44:10 AM Interpretation: Performing Lab: Notes/Report: Test performed by [facility] [address] [place] [address] , [address], [place] [address] Joe Manzanares MD, Labor Training Manager CLIA: [id number] 6-acetylmorphine <10 <10 ng/mL This test was developed and its performance characteristics are determined by [facility] clinical laboratories. It has not been cleared [...] 07/27/24 Performing Lab: Notes/Report: Test performed by [facility] [address] [place] [address] , [address], [place] [address] Joe Manzanares MD, Labor Training Manager CLIA: [id number] Amphetamines NEGATIVE NEGATIVE Barbiturates NEGATIVE NEGATIVE Benzodiazepines NEGATIVE NEGATIVE Cannabinoids NEGATIVE NEGATIVE Cocaine Metabolites NEGATIVE NEGATIVE Oxycodone POSITIVE NEGATIVE Methadone NEGATIVE NEGATIVE Opiates NEGATIVE NEGATIVE Phencyclidine NEGATIVE NEGATIVE Propoxyphene NEGATIVE NEGATIVE Immunoassay Drug Screen [place] Values See Below Please see the Directory [...] 04/20/2024 Encounters Encounter Location Date Provider Diagnosis [facility] [address] [facility] [address] [place] [id number] 04/20/2024 Griselda Duarte Chronic pain syndrom e [...] Up: 3 Months, Reason: Provider Name:Griselda Ventura, 11/15/2025 01:30:00 PM, [address], [address], [place], [id number], Progress Notes * Josse BENNETTB:1960 ( 65 yo F)Acc No.[id number]:04/20/2024 Progress Notes Patient: Katt HILLS Provider: Griselda Duarte M.D. :1960 A ge:63 Y S ex:Female Date:04/20/2024 Address:[address] [place] [address] [place], [id number] Subjective: * Chief Complaints: * 1 . 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 * Procedure Codes: * Electronic signature of Griselda Duarte MD on 09/07/2025 at 02:53 PM EST Sign off status: Pending * Provider: Griselda Duarte M.D. Date: 0 04/20/2024 Generated for Printi ng/Faxing/eTransmitting on: 1 11/08/2024 02:53 PM EST History and Physical Notes * HPI (History of Present Illness) Category Sub-Category Detail Notes Category Not es HPI Patient is here today for a 3 mo [facility] check up. Pt sts that she [...]
--- OUTSIDE RECORDS SUMMARY | 2024-07-27 08:45 | XMS_ITS ---
Author Organization [facility] Address [address] [facility] [address] [place] [id number] Care Team Providers Care Community Health Coordinator Name Role Phone Griselda Duarte Primary Care Provider Allergies Allergen (clinical drug ingredient) Drug/Non Drug Allergy documented on EMR Reaction Allergy Type Onset Date Status Non-steroidal anti-inflammatory agent (FN) NSAIDs stomach cramping Drug Allergy Active REASON FOR VISIT 3 months, Needs labs, mammogram, bone density screening, low dose chest CT, & flu vaccine Medications Medication SIG (Take, Route, Frequency, Duration) Notes Start Date End Date Status Fasenra 30 MG/ML as directed subcutaneously every 8 weeks Active HYDROcodone-Acetaminophen 7.5-325 MG 1 tab(s) orally four times a day as needed Active MS Contin 60 MG 1 tab(s) orally ever y 12 hours Active ProAir Digihaler 108 (90 Base) MCG/ACT 2 puff(s) inhaled 4 times a day 07/15/2012 Active Fosamax 70 MG 1 tab(s) orally once a week Not-Taking Xolair 150 MG 300 mg subcutaneousl y every 4 weeks Not-Taking Cephalexin 500 MG 1 capsule Orally Two times a day 10/05/2023 Not-Taking methylPREDNISolone 4 MG as directed Orally 024 Not-Taking Zanaflex 4 MG 1 tab(s) orally tid 03/15/2020 Not-Taking Neurontin 800 MG 1 tab(s) Qam, 2 tab( s) Qpm orally tid Not-Taking Topamax 100 MG 1 tablet Orally twic e a day; Duration: 90 days Active Imitrex 100 MG take 1 tablet by flakita th as directed Active Mometasone Furoate 50 MCG/ACT 2 spray(s) intranasally once a day; Duration: 30 day(s) Active Ambien 10 MG 1 tab(s) orally at bedtime 08/24/2023 Active Advair Diskus 250-50 MCG/ACT 1 puff(s) inhaled BID Active Social History Tobacco Use: Social History Observation Description Date Details (start date - stop date) Former Smoker NA - NA CURRENT TOBACCO USE: Question Answer Notes Are you a: former smoker Vital Signs Blood pressure systolic 112 mm Hg 07/27/20 24 Blood pressure diastolic 74 mm Hg 024 Heart Rate 70 /min 07/27/2024 Height 65.50 in 07/27/2024 Weight 109.4 lbs 07/27/2024 BMI 17.93 kg/m2 07/27/2024 Encounters Encounter Location Date Provider Diagnosis [facility] [address], [place] [id number] 07/27/2024 Griselda Duarte Chronic pain syndrom e G89.4 ; Cervicalgia M54.2 ; Former smoker Z87.891 and Allergic rhinitis, unspecified J30.9 Assessments Encounter Date Diagnosis (ICD Code) Assessment Notes Treatment Notes Treatment Clinical Notes Section Notes 07/27/2024 Chronic pain syndrome (ICD-10 - G89.4) 07/27/2024 Cervicalgia (ICD-10 - M54.2) 07/27/2024 Former smoker (ICD-10 - Z87.891) 07/27/2024 Allergic rhinitis, unspecified (ICD-10 - J30.9) 07/27/2024 Other She is advised to only take controlled medications that are prescribed by this office and is advised to discard any old medication she has at home. Plan to repeat urine drug screen at next office visit. Plan Of Treatment Medication Medication Name Sig Start Date Stop Date Notes HYDROcodone-Acetaminophen 7.5-325 MG 1 tab(s) orally four times a day as needed MS Contin 60 MG 1 tab(s) orally ever y 12 hours Treatment Notes Assessment Notes Other She is advised to on ly take controlled medications that are prescribed by this office and is advised to discard any old medication she has at home. Plan to repeat urine drug screen at next office visit. Next Appt Details Follow Up: 3 Months, Reason: Provider Name:Griselda Coy Mohan braswell, 11/15/2025 01:30:00 PM, [address], [place], [phone], Progress Notes * Josse BENNETTB:1960 ( 65 yo F)Acc No.[id number]:07/27/2024 Progress Notes Patient: Katt HILLS Provider: Griselda Duarte M.D. :1960 A ge:64 Y S ex:Female Date:07/27/2024 Address:[address] [place] [address] [place], [id number] Subjective: * Chief Complaints: * 1 . 3 months. 2. Needs labs, mammogram, bone density screening, low dose chest CT, & flu vaccine. * HPI: H PI: Patient is here today for a 3 month check up. Pt sts that she feels like something is stuck in the right nostril that she cannot get out. Pt sts that she used a neti pot but cannot get it out. Pt declines flu vaccine. P ain: Neck and back pain remain about the same. I confronted her about her last urine drug screen which showed oxycodone and no morphine or hydrocodone. She states she had an old bottle of oxycodone that she started taking last month. In reviewing her [place] it was noted that she did not fill a prescription for morphine or hydrocodone in May. 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 E NT/respiratory: She continues to follow with Dr. Cheatham and is scheduled for low-dose lung scan next month. * ROS: D ERMATOLOGY: no R adrian. n o H angel luis. N EUROLOGY: no H eadache. n o D izziness. U ROLOGY: no D ifficulty urinating. n o B lood in urine. 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 Cevallos, Declines all immunizations 06/2023; 2023. * Surgical History: l umbar microdiscectomy 2001, [...] 01/2014, ORIF bilateral distal radial fractures @ [facility]-Dr Goodman 02/21/2014, plate removed [...] tablet by mouth as directed , Taking Topamax 100 MG Tablet 1 tablet Orally twice a day , Taking MS Contin 60 MG Tablet Extended Release 1 tab(s) orally every 12 hours , Taking HYDROcodone- Acetaminophen 7.5-325 MG Tablet 1 tab(s) orally four times [...] SAIDs: stomach cramping. Objective: * Vitals: W t:109.4, Temp:98.1, BP:112/74, HR:70, Nurse:PHYLLIS, Ht: 65.50, BMI:17.93. * Examination: G eneral Examination: General Appearance: N AD. H EENT: Voice is hoarse. Moderate nasal congestion. TMs normal. O ral cavity: PND. N li: H ead forward posturing with decreased range of motion secondary to pain and stiffness.. H eart: R SR. L ungs: generally diminished BS. No wheezes. B ack: M arked thoracic kyphosis. E xtremities: n o leg edema. Assessment: * Assessment: 1. C ervicalgia - M54.2 (Primary) 2 . C hronic pain syndrome - G89.4 ? 3 . F ormer smoker - Z87.891 4 . A llergic rhinitis, unspecified - J30.9 Plan: * Treatment: 2. C hronic pain syndrome Continue MS Contin Tablet Extended Release, 60 MG, 1 tab(s), orally, every 12 hours, Refills 0.? 3. O thers Notes: She is advised to only take controlled medications that are prescribed by this office and is advised to discard any old medication she has at home. Plan to repeat urine drug screen at next office visit. * Follow Up: 3 Months * Images: Billing Information: * Visit Code: 15200 Office Visit, Est Pt., Level 3. * Procedure Codes: * Electronic signature of Griselda Duarte MD on 09/07/2025 at 02:53 PM EST Sign off status: Pending * Provider: Griselda Duarte M.D. Date: 09/26/[address] [facility]/eTransmitting on: 11/08/2024 02:53 PM EST History and Physical Notes * HPI (History of Present Illness) Category Sub-Category Detail Notes Category Not es HPI Patient is here today for a 3 mo [facility] check up. Pt sts that she feels like something is stuck in the right nostril that she cannot get out. Pt sts that she used a neti pot but cannot get it out. Pt declines flu vaccine Examination Category Sub-Category Detail Notes Category Not es General Examination HEENT: Voice is jj rse. Moderate nasal congestion. TMs normal Heart: RSR Lungs: generally diminished BS. No wheezes Extremities: no leg edema General Appearance: NAD Neck: Head forward posturi ng with decreased range of motion secondary to pain and stiffness. Oral cavity: PND Back: Marked thoracic kyph osis
--- OUTSIDE RECORDS SUMMARY | 2024-08-29 05:00 | XMS_ITS ---
Author Organization [facility] Address 1210 [facility] [address] [place] [phone] Care Team Providers Care Vp Ad Sales West Name Role Phone Griselda Duarte Primary Care [...] 08/29/2024 Encounters Encounter Location Date Provider Diagnosis A-[place] [address] [phone] 08/29/2024 Griselda Duarte Chronic pain syndrom e [...] [address], [address], [place], [place], [id number], Progress Notes * CLAUDIAGLORIA JosseB:1960 ( 65 yo F)Acc No.[id number]:08/29/2024 Progress Notes Patient: Katt HILLS Provider: Griselda Duarte M.D. :1960 A ge:64 Y S ex:Female Date:08/29/2024 Address:[address] [place] [address] KATI AMEZQUITA, [id number] Subjective: * Chief Complaints: * 1 . [...] a recent bone density test by her HARDBOARD PANEL PRINTER. Please refer to copy in chart. 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 * Procedure Codes: 57769 INCISION AND DRAINAGE OF ABSCESS,CYST,CARBUNCLE,PARONYCHIA SIMPLE. * Electronic signature of Griselda Duarte MD on 09/07/2025 at 02:53 PM EST Sign off status: Pending * Provider: Griselda Duarte M.D. Date: 10/30/2023 Generated for Garth naidu/Lorene/Sheeba on: 11/08/2024 02:53 PM EST History and [...]
--- OUTSIDE RECORDS SUMMARY | 2024-09-01 11:00 | XMS_ITS ---
Author Organization [facility] Address 1210 [facility] [address] [place] [id number] Care Team Providers Care High School Business Teacher Name Role Phone Griselda Duarte Primary Care Provider Gibson Morgan Unavailable [phone] Allergies Allergen (clinical drug ingredient) Drug/Non Drug Allergy documented on EMR Reaction Allergy Type Onset Date Status Non-steroidal anti-inflammatory agent (FN) NSAIDs stomach cramping Drug Allergy Active REASON FOR VISIT finger no better Medications Medication SIG (Take, Route, Frequency, Duration) Notes Start Date End Date Status Bactrim DS 800-160 MG 1 tablet Orally Tw o times a day; Duration: 7 days 09/01/2024 Active Fasenra 30 MG/ML as directed subcutan eously every 8 weeks Active MS Contin 60 MG 1 tab(s) orally ever y 12 hours 08/29/2024 Active Ambien 10 MG 1 tab(s) orally at bedtime 08/24/2023 Active Imitrex 100 MG take 1 tablet by flakita th as directed Active Alendronate Sodium 70 MG 1 tablet 30 min utes before the first food, beverage or medicine of the day with plain water Orally once a week 08/29/2024 Active HYDROcodone-Acetaminophen 7.5-325 MG 1 tab(s) orally four times a day as needed 08/29/2024 Active Topamax 100 MG 1 tablet Orally twic e a day; Duration: 90 days Active Mometasone Furoate 50 MCG/ACT 2 spray(s) intranasally once a day; Duration: 30 day(s) Active Advair Diskus 250-50 MCG/ACT 1 puff(s) inhaled BID Active ProAir Digihaler 108 (90 Base) MCG/ACT 2 puff(s) inhaled 4 times a day 07/15/2012 Active Social History Tobacco Use: Social History Observation Description Date Details (start date - stop date) Former Smoker NA - NA CURRENT TOBACCO USE: Question Answer Notes Are you a: former smoker Vital Signs Blood pressure systolic 116 mm Hg 09/01/20 24 Blood pressure diastolic 70 mm Hg 024 Heart Rate 103 /min 09/01/2024 Height 65.50 in 09/01/2024 Weight 107.8 lbs 09/01/2024 BMI 17.66 kg/m2 09/01/2024 Encounters Encounter Location Date Provider Diagnosis [facility] 1210 [facility] 36 [facility] [address] [place] [id number] 09/01/2024 Gibson Morgan Cellulitis of finger of right hand L03.011 Assessments Encounter Date Diagnosis (ICD Code) Assessment Notes Treatment Notes Treatment Clinical Notes Section Notes 09/01/2024 Cellulitis of finger of right hand (ICD-10 - L03.011) Plan Of Treatment Medication Medication Name Sig Start Date Stop Date Notes Bactrim DS 800-160 MG 1 tablet Orally Tw o times a day; Duration: 7 days 09/01/2024 Amoxicillin-Pot Clavulanate 875-125 MG 1 tablet Orally every 12 hrs 08/29/2024 Next Appt Details Follow Up: via phone to repo rt progress, Reason: Provider Name:Griselda Ventura, 11/15/2025 01:30:00 PM, 1210 [facility] 36 [facility], [address], [place], [phone], Progress Notes * CLAUDIAJosse CASTROB:1960 ( 65 yo F)Acc No.[id number]:09/01/2024 Progress Notes Patient: Katt HILLS Provider: Dusty Morgan M.D. :1960 A ge:64 Y S ex:Female Date:09/01/2024 Address:[address] [place], [place] [id number] Pcp:R Coy Gerald Subjective: * Chief Complaints: * 1 . Finger no better. * HPI: D ermatology: 64 year old female presents with c/o redness P t complains of ongoing swelling and redness in rt middle finger. Pt was seen 08/29 and rx'd Augmentin that she is still taking. Pt states she is still having a lot of pain and it is worse at night. * ROS: C ARDIOLOGY: no D izziness. n o C hest pain. G ASTROENTEROLOGY: no N ausea. n o V omiting. U ROLOGY: no D ifficulty urinating. n o B lood in urine. 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 * Hospitalization/Major Diagno stic Procedure: H ER-broken right and left wrist 03/03. * [...] Status: . Past smoking status: yes, quit 2020. Recreational drug use: no. Alcohol: no. Sexually [...] tablet Orally twice a day , Taking Amoxicillin-Pot Clavulanate 875-125 MG Tablet 1 tablet Orally every 12 hrs , Taking Alendronate Sodium 70 MG Tablet 1 tablet 30 minutes before the first food, beverage or medicine of the day with plain water Orally once a week , Taking HYDROcodone- Acetaminophen 7.5-325 MG Tablet 1 tab(s) orally four times a day as needed , Taking MS Contin 60 MG Tablet Extended Release 1 tab(s) orally every 12 hours , Discontinued methylPREDNISolone 4 MG Tablet Therapy Pack as directed Orally , Discontinued Cephalexin 500 MG Capsule 1 capsule Orally Two times a day , Discontinued Xolair 150 MG Solution Reconstituted 300 mg subcutaneously every 4 weeks , Discontinued Neurontin 800 MG Tablet 1 tab(s) Qam, 2 tab(s) Qpm orally tid , Discontinued Zanaflex 4 MG Tablet 1 tab(s) orally tid , Discontinued Fosamax 70 MG Tablet 1 tab(s) orally once a week , Medication List reviewed and reconciled with the patient * Allergies: N SAIDs: stomach cramping. Objective: * Vitals: W t:107.8, Temp:97.9, BP:116/70, HR:103, Nurse:rickey, Ht: 65.50, BMI:17.66. * Examination: G eneral Examination: General Appearance: N AD. S kin: u lnar side of right long finger with a 3 cm wide area of peeling skin and skin redness near the DIP joint, previous I&D site has closed. Assessment: * Assessment: 1. C ellulitis of finger of right hand - L03.011 (Primary) Plan: * Treatment: * Follow Up: v ia phone to report progress * Images: Billing Information: * Visit Code: 83221 Office Visit, Est Pt., Level 3. * Procedure Codes: * Electronic signature of Trudi Morgan MD on 09/07/2025 at 02:52 PM EST Sign off status: Pending * Provider: Dusty Morgan M.D. Date: 11/02/2023 Generated for Garth naidu/Lorene/Johnitting on: 11/08/2024 02:52 PM EST History and Physical Notes * HPI (History of Present Illness) Category Sub-Category Detail Notes Category Not es Dermatology redness Pt complains of ongoing swelling and redness in rt middle finger. Pt was seen 08/29 and rx'd Augmentin that she is still taking. Pt states she is still having a lot of pain and it is worse at night Examination Category Sub-Category Detail Notes Category Not es General Examination General Appearance: NAD Skin: ulnar side of right long finger with a 3 cm wide area of peeling skin and skin redness near the DIP joint, previous I&D site has closed
--- OUTSIDE RECORDS SUMMARY | 2024-10-26 08:45 | XMS_ITS ---
Author Organization [facility] Address 1210 [facility] [address] [place] [phone] Care Team Providers Care Sales And Marketing Assistant Name Role Phone Griselda Duarte Primary Care Provider [phone] Allergies Allergen (clinical drug ingredient) Drug/Non Drug [...] W/U Status Risk Notes Problem Chronic bronchitis (69542557) Chronic bronchitis (J42) Active confirmed Vital Signs Blood pressure systolic 128 mm Hg 10/26/19 25 Blood pressure diastolic 70 mm Hg 025 Heart Rate 70 /min 10/26/2024 Height 65.50 in 10/26/2024 Weight 103.8 lbs 10/26/2024 BMI 17.01 kg/m2 10/26/2024 Encounters Encounter Location Date Provider Diagnosis [place] 1210 [facility] 36 [facility] [address] [place] [phone] 10/26/2024 Griselda Duarte Chronic bronchitis J 42 [...] Name:Griselda Ventura, 11/15/2025 01:30:00 PM, [address] [place] [facility] 36 [facility], [address], [place], [phone], Progress Notes * Byron BENNETT:1960 ( 65 yo F)Acc No.[id number]:10/26/2024 Progress Notes Patient: Katt HILLS Provider: Griselda Duarte M.D. :1960 A ge:64 Y S ex:Female Date:10/26/2024 Address:[facility] [id number] Subjective: * Chief Complaints: * 1 . 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 * Procedure Codes: 94551 PULSE OX. 3074F SYST BP LT 130 MM HG. 3078F DIAST BP < 80 MM HG. * Electronic signature of Griselda Duarte MD on 09/07/2025 at 02:52 PM EST Sign off status: Pending * Provider: Griselda Duarte M.D. Date: 0 10/26/2024 Generated for Garth naidu/Lorene/Sheeba on: 1 11/08/2024 02:52 PM EST History and Physical [...]
--- OUTSIDE RECORDS SUMMARY | 2025-02-08 09:00 | XMS_ITS ---
Author Organization [facility] Address [address] [facility] [address] [place] [phone] Care Team Providers Care Desktop Analyst Name Role Phone Griselda Duarte Primary Care Provider [phone] Allergies Allergen (clinical drug ingredient) Drug/Non Drug [...] Location Date Provider Diagnosis [place] [address] [facility] [address] [place] [phone] 02/08/2025 Griselda Duarte Chronic pain syndrom e [...] Name:Griselda Ventura, 11/15/2025 01:30:00 PM, [address], [place], [phone], Medications Administered Medication Instructions Date of Administration Dosage Notes B-12 02/08/2025 1 mL Progress Notes * Josse BENNETTB:1960 ( 65 yo F)Acc No.[id number]:02/08/2025 Progress Notes Patient: Katt HILLS Provider: Griselda Duarte M.D. 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 Modifiers: 25 * Procedure Codes: J3420 12. 07001 ADMINISTRATION OF INJECTION. G8783 BP SCR PRFRM RCMDD DEFIND SCR INTVL. 3074F SYST BP LT 130 MM HG. 3078F DIAST BP < 80 MM HG. * Electronic signature of Griselda Duarte MD on 09/07/2025 at 02:52 PM EST Sign off status: Pending * Provider: Griselda Duarte M.D. Date: 0 02/08/2025 Generated for Printi ng/Maikolg/eTransmitting on: 1 11/08/2024 02:52 PM EST History [...]
--- OUTSIDE RECORDS SUMMARY | 2025-05-10 06:00 | XMS_ITS ---
Author Organization [facility] Address [address] [facility] [address] [place] [id number] Care Team Providers Care Reimbursement Spec Name Role Phone Griselda Duarte Primary Care Provider [phone] Allergies Allergen (clinical drug ingredient) Drug/Non Drug Allergy documented on EMR Reaction Allergy Type Onset Date Status Non-steroidal anti-inflammatory agent (FN) NSAIDs stomach cramping Drug Allergy Active REASON FOR VISIT 3 months, Needs labs, mammogram, bone density screening, & low dose chest CT Medications Medication SIG (Take, Route, Frequency, Duration) Notes Start Date End Date Status MS Contin 60 MG 1 tab(s) orally ever y 12 hours Active ProAir Digihaler 108 (90 Base) MCG/ACT 2 puff(s) inhaled 4 times a day 07/15/2012 Active Fasenra 30 MG/ML as directed subcutaneously every 8 weeks Not-Taking HYDROcodone-Acetaminoph en 7.5-325 MG 1 tab(s) orally four times a day as needed Active Amoxicillin-Pot Clavulanate 875-125 MG 1 tablet Orally Two times a day 10/26/2024 Not-Taking Topamax 100 MG 1 tablet Orally twic e a day; Duration: 90 days Active Alendronate Sodium 70 MG 1 tablet 30 minutes before the first food, beverage or medicine of the day with plain water Orally once a week 08/29/2024 Active SUMAtriptan Succinate 100 MG 1 tablet as needed, may take second dose at least 2 hours after first dose up to 2 tablets per day as needed Active Ambien 10 MG 1 tab(s) orally at bedtime 08/24/2023 Active Advair Diskus 500-50 MCG/ACT 1 puff(s) inhaled BID Active Spiriva Respimat 2.5 MCG/ACT 1 puffs Inhalation Once a day Active Mometasone Furoate 50 MCG/ACT 2 spray(s) intranasally once a day; Duration: 30 day(s) Not-Taking Social History Tobacco Use: Social History Observation Description Date Details (start date - stop date) Former Smoker NA - NA CURRENT TOBACCO USE: Question Answer Notes Are you a: former smoker Vital Signs Blood pressure systolic 100 mm Hg 05/10/20 25 Blood pressure diastolic 70 mm Hg 025 Height 65.50 in 05/10/2025 Weight 106.2 lbs 05/10/2025 BMI 17.4 kg/m2 05/10/2025 Encounters Encounter Location Date Provider Diagnosis [place] [address] [place] [address] [place] [id number] 05/10/2025 Griselda Duarte Chronic pain syndrom e G89.4 ; Cervicalgia M54.2 ; Osteopenia M85.80 ; Fatigue R53.83 ; Tobacco use disorder F17.200 ; Osteoporosis M81.0 ; Chronic obstructive pulmonary disease, unspecified J44.9 and Dyslipidemia E78.5 Assessments Encounter Date Diagnosis (ICD Code) Assessment Notes Treatment Notes Treatment Clinical Notes Section Notes 05/10/2025 Chronic pain syndrome (ICD-10 - G89.4) 05/10/2025 Cervicalgia (ICD-10 - M54.2) 05/10/2025 Osteopenia (ICD-10 - M85.80) Continue her calcium and vitamin D with plans to repeat DEXA scan in 2 years. 05/10/2025 Fatigue (ICD-10 - R53.83) 05/10/2025 Tobacco use disorder (ICD-10 - F17.200) 05/10/2025 Osteoporosis (ICD-10 - M81.0) 05/10/2025 Chronic obstructive pulmonary disease, unspecified (ICD-10 - J44.9) 05/10/2025 Dyslipidemia (ICD-10 - E78.5) Plan Of Treatment Medication Medication Name Sig Start Date Stop Date Notes MS Contin 60 MG 1 tab(s) orally ever y 12 hours HYDROcodone-Acetaminophen 7.5-325 MG 1 tab(s) orally four times a day as needed Topamax 100 MG 1 tablet Orally twic e a day; Duration: 90 days SUMAtriptan Succinate 100 MG 1 tablet as needed, may take second dose at least 2 hours after first dose up to 2 tablets per day as needed Advair Diskus 500-50 MCG/ACT 1 puff(s) inhaled BID Spiriva Respimat 2.5 MCG/ACT 1 puffs Inh alation Once a day Treatment Notes Assessment Notes Osteopenia Continue her calcium and vitamin D with plans to repeat DEXA scan in 2 years. Pending Test Test Name Order Date Bone density 05/10/2025 CT Scan : Chest, low dose 05/10/2025 H-Lipid Panel 05/10/2025 H-CMP 05/10/2025 Next Appt Details Follow Up: 3 Months, Reason: Provider Name:Griselda Ventura, 11/15/2025 01:30:00 PM, [address] [place] [facility] 36 [facility], [address], [place], [place], [phone], Progress Notes * Josse BENNETTB:1960 ( 65 yo F)Acc No.[id number]:05/10/2025 Progress Notes Patient: Katt HILLS Provider: Griselda Duarte M.D. :1960 A ge:64 Y S ex:Female Date:05/10/2025 Address:[address] [place] [address] [place], [id number] Subjective: * Chief Complaints: * 1 . 3 months. 2. Needs labs, mammogram, bone density screening, & low dose chest CT. * HPI: H PI: 64 year old female presents with c/o Patient is here today for?Pt is here today for a 3 month check up. Pt sts she is doing well and has no concerns at this time. A llergy/Asthma: Dr. Ventura has closed his Allergy practice in [place] and she has not established care with a new silo operator. She is requesting refills on her Advair and Spiriva. * ROS: C ARDIOLOGY: no D izziness. n o C hest pain. G ASTROENTEROLOGY: no N ausea. n o V omiting. U ROLOGY: no D ifficulty urinating. n o B lood in urine. 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 * Medications: T aking Spiriva Respimat 2.5 MCG/ACT Aerosol Solution 1 puffs Inhalation Once a day , Taking SUMAtriptan Succinate 100 mg Tablet TAKE 1 TABLET DIRECTED , Taking ProAir Digihaler 108 (90 Base) MCG/ACT Aerosol Powder Breath Activated 2 puff(s) inhaled 4 times a day , Taking Advair Diskus 500-50 MCG/ACT Aerosol Powder Breath Activated 1 puff(s) [...] times a day as needed , Not-Taking Fasenra 30 MG/ML Solution Prefilled Syringe as directed subcutaneously every 8 weeks , Not-Taking Mometasone Furoate 50 MCG/ACT Suspension 2 spray(s) intranasally once a day , Not-Taking Amoxicillin-Pot Clavulanate 875-125 MG Tablet 1 tablet Orally Two times a day , Medication List reviewed and reconciled with the patient * Allergies: N SAIDs: stomach cramping. Objective: * Vitals: W t: 106.2, Temp: 98.4, BP: 100/70, Nurse: rosie, Ht: 65.50, BMI:17.4. * Examination: E NT/Respiratory: General Appearance: N AD. N ose : mild congestion. S inuses : non tender bilaterally. O ral cavity : V oice is slightly hoarse.? Postnasal drainage. H eart : R RR, normal S1 S2, no murmurs. L ungs: G enerally diminished breath sounds o/w clear. Assessment: * Assessment: 1. C hronic pain syndrome - G89.4 (Primary) 2 . C ervicalgia - M54.2 ? 3 . O steopenia - M85.80 4 . F atigue - R53.83 5 .?Tobacco use disorder - F17.200 6 . O steoporosis - M81.0 7 . C hronic obstructive pulmonary disease, unspecified - J44.9 8 . D yslipidemia - E78.5 Plan: * Treatment: 2. C ervicalgia Continue HYDROcodone-Acetaminophen Tablet, 7.5-325 MG, 1 tab(s), orally, four times a day as needed, Refills 0. 3. O steopenia Notes: Continue her calcium and vitamin D with plans to repeat DEXA scan in 2 years. 4. T obacco use disorder I maging: CT Scan : Chest, low dose 5.?Osteoporosis?Imaging: Bone density* Leigh Pollard 05/15/2025 11:2 7:45 AM EDT > faxed to [facility] Scheduling 6.?Chronic obstructive pulmonary disease, unspecified? Refill Advair Diskus Aerosol Powder Breath Activated, 500-50 MCG/ACT, 1 puff(s), inhaled, BID, 3, Refills 1.??7.?Dyslipidemia?LAB: H-Lipid Panel ?LAB: H-CMP8.?Others? Refill Spiriva Respimat Aerosol Solution, 2.5 MCG/ACT, 1 puffs, Inhalation, Once a day, 3, Refills 1;?Refill Topamax Tablet, 100 MG, 1 tablet, Orally, twice a day, 90 days, 180 Tablet, Refills 1;?Refill SUMAtriptan Succinate Tablet, 100 MG, 1 tablet as needed, may take second dose at least 2 hours after first dose up to 2 tablets per day as needed, 27, Refills 2.?? * Follow Up: 3 Months * Images: Billing Information: * Visit Code: 41825 Office Visit, Est Pt., Level 4. * Procedure Codes: * Electronic signature of Griselda Duarte MD on 09/07/2025 at 02:52 PM EST Sign off status: Pending * Provider: Griselda Duarte M.D. Date: 0 05/10/2025 Generated for Garth naidu/Lorene/eTbakarismitting on: 1 11/08/2024 02:52 PM EST History and Physical Notes * HPI (History of Present Illness) Category Sub-Category Detail Notes Category Not es HPI Patient is here today for Pt is here today for a 3 month check up. Pt sts she is doing well and has no concerns at this time Examination Category Sub-Category Detail Notes Category Not es ENT/Respiratory Oral cavity : Voice is slightl y hoarse. Postnasal drainage Sinuses : non tender bilateral ly Heart : RRR, normal S1 S2, n o murmurs Lungs: Generally diminished breath sounds o/w clear General Appearance: NAD Nose : mild congestion
--- OUTSIDE RECORDS SUMMARY | 2025-08-14 08:30 | XMS_ITS ---
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 Name Role Phone Griselda Duarte Primary Care Provider [phone] Allergies Allergen (clinical drug ingredient) Drug/Non Drug Allergy documented on EMR Reaction Allergy Type Onset Date Status Non-steroidal anti-inflammatory agent (FN) NSAIDs stomach cramping Drug Allergy Active REASON FOR VISIT 3 months Medications Medication SIG (Take, Route, Frequency, Duration) Notes Start Date End Date Status Medrol 4 MG as directed Orally 08/14/2025 Active Mometasone Furoate 50 MCG/ACT 2 spray(s) intranasally once a day; Duration: 30 day(s) Not-Taking Amoxicillin-Pot Clavulanate 875-125 MG 1 tablet Orally Two times a day 10/26/2024 Not-Taking Fasenra 30 MG/ML as directed subcutaneously every 8 weeks Not-Taking Spiriva Respimat 2.5 MCG/ACT 2 puffs Inhalation Once a day; Duration: 30 days Active Advair Diskus 500-50 MCG/ACT 1 puff(s) inhaled BID Active ProAir Digihaler 108 (90 Base) MCG/ACT 2 puff(s) inhaled 4 times a day 07/15/2012 Active SUMAtriptan Succinate 100 MG 1 tablet as needed, may take second dose at least 2 hours after first dose up to 2 tablets per day as needed Active Ambien 10 MG 1 tab(s) orally at bedtime 08/24/2023 Not-Taking Alendronate Sodium 70 MG 1 tablet 30 minutes before the first food, beverage or medicine of the day with plain water Orally once a week 08/29/2024 Active HYDROcodone-Acetaminoph en 7.5-325 MG 1 tab(s) orally four times a day as needed 08/14/2025 Active Topamax 100 MG 1 tablet Orally twic e a day; Duration: 90 days Active MS Contin 60 MG 1 tab(s) orally ever y 12 hours 08/14/2025 Active Social History Tobacco Use: Social History Observation Description Date Details (start date - stop date) Former Smoker NA - NA CURRENT TOBACCO USE: Question Answer Notes Are you a: former smoker Problems Problem Type SNOMED Code ICD Code Onset Dates Problem Status W/U Status Risk Notes Problem Chronic obstructive pulmonary disease (66502766) Chronic obstructive pulmonary disease, unspecified (J44.9) Active confirmed Vital Signs Blood pressure systolic 110 mm Hg 08/14/20 Blood pressure diastolic 68 mm Hg 025 Heart Rate 95 /min 08/14/2025 Height 65.50 in 08/14/2025 Weight 107.4 lbs 08/14/2025 BMI 17.6 kg/m2 08/14/2025 Encounters Encounter Location Date Provider Diagnosis [place] [address] [facility] [address] [place], [place] [address], [place] [id number] 08/14/2025 Griselda Duarte Chronic pain syndrom e G89.4 ; Cervicalgia M54.2 ; Osteopenia M85.80 ; Fatigue R53.83 ; Tobacco use disorder F17.200 ; Osteoporosis M81.0 ; Chronic obstructive pulmonary disease, unspecified J44.9 ; Dyslipidemia E78.5 and B12 deficiency E53.8 Assessments Encounter Date Diagnosis (ICD Code) Assessment Notes Treatment Notes Treatment Clinical Notes Section Notes 08/14/2025 Chronic pain syndrome (ICD-10 - G89.4) 08/14/2025 Cervicalgia (ICD-10 - M54.2) 08/14/2025 Osteopenia (ICD-10 - M85.80) Continue her calcium and vitamin D with plans to repeat DEXA scan in 2 years. 08/14/2025 Fatigue (ICD-10 - R53.83) 08/14/2025 Tobacco use disorder (ICD-10 - F17.200) 08/14/2025 Osteoporosis (ICD-10 - M81.0) 08/14/2025 Chronic obstructive pulmonary disease, unspecified (ICD-10 - J44.9) 08/14/2025 Dyslipidemia (ICD-10 - E78.5) 08/14/2025 B12 deficiency (ICD-10 - E53.8) Plan Of Treatment Medication Medication Name Sig Start Date Stop Date Notes Medrol 4 MG as directed Orally 08/14/2025 Advair Diskus 500-50 MCG/ACT 1 puff(s) inhaled BID HYDROcodone-Acetaminophen 7.5-325 MG 1 tab(s) orally four times a day as needed 08/14/2025 MS Contin 60 MG 1 tab(s) orally ever y 12 hours 08/14/2025 Treatment Notes Assessment Notes Osteopenia Continue her calcium and vitamin D with plans to repeat DEXA scan in 2 years. Next Appt Details Follow Up: 3 Months, Reason: Provider Name:Griselda Ventura, 11/15/2025 01:30:00 PM, [address] [facility] [address], [place], [place], [id number], Medications Administered Medication Instructions Date of Administration Dosage Notes B-12 08/14/2025 1 mL Progress Notes * Anna BENNETTMarybethB:1960 ( 65 yo F)Acc No.[id number]:08/14/2025 Progress Notes Patient: [place]att HILLS Provider: Griselda Duarte M.D. :1960 A ge:65 Y S ex:Female Date:08/14/2025 Address:[address] [place] [address] [place], [id number] Subjective: * Chief Complaints: * 1 . 3 months. * HPI: H PI: 65 year old female presents with c/o Patient is here today for?Pt states she is here for her 3 month check up. Pt states she is feeling more tired then usual. Pt states other than that she has no new concerns at this time. E NT/respiratory: Follows with dr. Cheatham and had last LDCT . C onstitutional: She no longer requires and has quit taking Ambien since she quit working. * ROS: D ERMATOLOGY: no R adrian. n o H angel luis. G ASTROENTEROLOGY: no N ausea. n o V omiting. n o D iarrhea.? U ROLOGY: no D ifficulty urinating. n o B lood in urine. 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-Dr Goodman 02/21/2014, plate removed from [...] Sexually active: no.. * Medications: T aking Advair Diskus 500-50 MCG/ACT Aerosol Powder Breath Activated 1 puff(s) inhaled BID , Taking Topamax 100 MG Tablet 1 tablet Orally twice a day , Taking SUMAtriptan Succinate 100 MG Tablet 1 tablet as needed, may take second dose at least 2 hours after first dose up to 2 tablets per day as needed , Taking ProAir Digihaler 108 (90 Base) MCG/ACT Aerosol Powder Breath Activated 2 puff(s) inhaled 4 times a day , Taking Alendronate Sodium 70 MG Tablet 1 tablet 30 minutes before the first food, beverage or medicine of the day with plain water Orally once a week , Taking Spiriva Respimat 2.5 MCG/ACT Aerosol Solution 2 puffs Inhalation Once a day , Taking MS Contin 60 MG Tablet Extended Release 1 tab(s) orally every 12 hours , Taking HYDROcodone-Acetaminophen 7.5-325 MG Tablet 1 tab(s) orally four times a day as needed , Not-Taking Ambien 10 MG Tablet 1 tab(s) orally at bedtime , Not-Taking Fasenra 30 MG/ML Solution Prefilled Syringe as directed subcutaneously every 8 weeks , Not-Taking Mometasone Furoate 50 MCG/ACT Suspension 2 spray(s) intranasally once a day , Not-Taking Amoxicillin-Pot Clavulanate 875-125 MG Tablet 1 tablet Orally Two times a day , Medication List reviewed and reconciled with the patient * Allergies: N SAIDs: stomach cramping. Objective: * Vitals: W t: 107.4, Temp: 98.0, BP: 110/68, HR: 95, Nurse: KATE, Ht: 65.50, BMI:17.6. * Examination: G eneral Examination: General Appearance: N AD. H EENT: Voice is hoarse. TMs normal. Mild nasal congestion. O ral cavity: PND. N li: H ead forward posturing with decreased range of motion secondary to pain and stiffness.. H eart: R SR. L ungs: generally diminished BS. Few faint wheezes. B ack: M arked thoracic kyphosis. E xtremities: n o leg edema. Assessment: * Assessment: 1. C ervicalgia - M54.2 (Primary) 2 . C hronic pain syndrome - G89.4 ? 3 . O steopenia - M85.80 4 . F atigue - R53.83 5 .?Tobacco use disorder - F17.200 6 . O steoporosis - M81.0 7 . C hronic obstructive pulmonary disease, unspecified - J44.9 8 . D yslipidemia - E78.5 9 . B 12 deficiency - E53.8 Plan: * Treatment: 2. O steopenia Notes: Continue her calcium and vitamin D with plans to repeat DEXA scan in 2 years. 3. C hronic obstructive pulmonary disease, unspecified Continue Advair Diskus Aerosol Powder Breath Activated, 500-50 MCG/ACT, 1 puff(s), inhaled, BID.? 4. O thers Start Medrol Tablet Therapy Pack, 4 MG, as directed, Orally, 1. * Therapeutic Injections: B-12 : 1 mL (Route: Intramuscular) given by CAREY Carranza on left gluteus (B12 deficiency) * Procedure Codes: J 3420 B-12, 05266 ADMINISTRATION OF INJECTION * Follow Up: 3 Months * Images: Billing Information: * Visit Code: 77567 Office Visit, Est Pt., Level 3. Modifiers: 25 * Procedure Codes: J3420 B-12. 30720 ADMINISTRATION OF INJECTION. * Electronic signature of Griselda Duarte MD on 09/07/2025 at 02:53 PM EST Sign off status: Pending * Provider: Griselda Duarte M.D. Date: 10/14/2024 Generated for Garth naidu/Lorene/eTbakarismitting on: 11/08/2024 02:53 PM EST History and Physical Notes * HPI (History of Present Illness) Category Sub-Category Detail Notes Category Not es HPI Patient is here today for Pt sta noel she is here for her 3 month check up. Pt states she is feeling more tired then usual. Pt states other than that she has no new concerns at this time Examination Category Sub-Category Detail Notes Category Not es General Examination HEENT: Voice is jj rse. TMs normal. Mild nasal congestion Heart: RSR Lungs: generally diminished BS. Few faint wheezes Extremities: no leg edema General Appearance: NAD Neck: Head forward posturi ng with decreased range of motion secondary to pain and stiffness. Oral cavity: PND Back: Marked thoracic kyph osis
--- NOTE | 2025-09-07 14:52 | CT_ITS ---
FINAL REPORT CLINICAL HISTORY: SCREENING former smoker, quit 10 years ago. smoked 1 ppd x 25 years COMPARISON: 09/06/2024 FINDINGS: CT CHEST LOW DOSE SCREENING HISTORY: Screening exam for lung cancer. DOSE: CTDI vol: 2.90 mGy, DLP: 101.60 mGy*cm TECHNIQUE: Axial CT without IV contrast administration using low dose protocol. This study was performed with techniques to keep radiation doses as low as reasonably achievable, (ALARA). Individualized dose reduction techniques using automated exposure control or adjustment of mA and/or kV according to the patient's size were employed. There is evidence of old calcified granulomas. There is right middle lobe scarring. Mild emphysematous changes are noted. No acute lung disease is present. No pulmonary lesions are seen suspicious for neoplasm. No pleural or pericardial effusion is seen. No adenopathy or mass lesion is present. IMPRESSION: No evidence of lung cancer LUNG RADS CATEGORY 1 RECOMMENDATION: 12 month LDCT follow up Reviewed, Interpreted and Dictated by Micah Aj MD Transcribed by Parvin Cabrera Authenticated and . [facility]
--- OUTSIDE RECORDS SUMMARY | 2025-09-07 14:53 | XMS_ITS | Patient Health Record ---
[facility] Address [address] [place] [id number] Care Team Providers Care Clam Shucker Name Role Phone Griselda Duarte Primary Care [...] orally ever y 12 hours 08/14/2025 Active Advair Diskus 500-50 MCG/ACT 1 puff(s) inhaled BID Active Medrol 4 MG as directed Orally 08/14/2025 Active ProAir Digihaler 108 (90 Base) MCG/ACT 2 puff(s) inhaled 4 times a day 07/15/2012 Active HYDROcodone-Acetaminoph en 7.5-325 MG 1 tab(s) orally four times a day as needed 08/14/2025 Active Topamax 100 MG 1 tablet Orally twic e a day; Duration: 90 days Active SUMAtriptan Succinate 100 MG 1 tablet as needed, may take second dose at least 2 hours after first dose up to 2 tablets per day as needed Active Mometasone Furoate 50 MCG/ACT 2 spray(s) intranasally once a day; Duration: 30 day(s) Not-Taking Amoxicillin-Pot Clavulanate 875-125 MG 1 tablet Orally Two times a day 10/26/2024 Not-Taking Fasenra 30 MG/ML as directed subcutaneously every 8 weeks Not-Taking Spiriva Respimat 2.5 MCG/ACT 2 puffs Inhalation Once a day; Duration: 30 days Active Ambien 10 MG 1 tab(s) orally at bedtime 08/24/2023 Not-Taking Alendronate Sodium 70 MG 1 tablet 30 minutes before the first food, beverage or medicine of the day with plain water Orally once a week 08/29/2024 Active Immunizations Vaccine Route Administration Date Status Comme nts Morphine 10mg/ml IM Intramuscular 05/25/2006 Administered xFluzone Intradermal (18-64yrs)-trivalent ID Intradermal 06/15/2012 Administered xFluzone Intradermal (18-64yrs)-trivalent ID Intradermal 06/29/2013 Administered xFluzone (6mos and older)-trivalent ID Intradermal 06/20/2014 Administered xFlu shot-36 months and older IM Intramuscular 07/24/2006 Administered xFlu shot-36 months and older IM Intramuscular 06/29/2007 Administered xFlu shot-36 months and older IM Intramuscular 07/02/2008 Administered xFlu shot-36 months and older IM Intramuscular 06/23/2010 Administered xFlu shot-36 months and older IM Intramuscular 06/05/2011 Administered xAdministration of injection IM Intramuscular 08/03/2016 Administered Tetanus Tdap-Adacel (over 7yrs) IM Intramuscular 08/16/2012 Administered Shingrix Unknown 11/24/2020 Administered Shingrix Unknown 01/24/2021 Administered Prevnar (PCV13) IM Intramuscular 07/31/2014 Administered PNEUMOVAX 23 VACCINE IM Intramuscular 07/09/2008 Administe red PNEUMOVAX 23 VACCINE Unknown 04/08/2018 Pending PNEUMOVAX 23 VACCINE IM Intramuscular 2018 Administe red Given by MP Hepatitis A (adult) Unknown 01/27/2019 Administered Fluzone Quad (6months&older) IM Intramuscular 05/21/2015 Administered Fluzone Quad (6months&older) IM Intramuscular 07/05/2017 Administered Fluzone Quad (6months&older) IM Intramuscular 2018 Administered Given by MP Fluzone Quad (6months&older) IM Intramuscular 06/13/2019 Administered Fluzone Quad (6months&older) IM Intramuscular 05/23/2020 Administered Fluzone Quad (6months&older) IM Intramuscular 07/07/2021 Administered Fluzone Intradermal Quad private(18-64yrs) ID Intradermal 06/10/2016 Administered Social History Tobacco Use: Social History Observation Description Date Details (start date - stop date) Former Smoker NA - NA CURRENT TOBACCO USE: Question Answer Notes Are you a: former smoker Problems Problem Type SNOMED Code ICD Code Onset Dates Problem Status W/U Status Risk Notes Problem Insomnia (820172117) Insomnia (G47.00) Active confirmed Problem Solitary nodule of lung (273246014) Lung nodule (R91.1) Active confirmed Problem Anxiety (67294378) Anxiety (F41.9) Active confirmed Problem Osteopenia (752700379) Osteopenia (M85.80) Active confirmed Problem Seasonal allergy (901064212) Seasonal allergies (J30.2) Active confirmed Problem Cervicalgia (82395450) Cervicalgia (M54.2) Active confirmed Problem Primary insomnia (6432128) Primary insomnia (F51.01) Active confirmed Problem Chronic pain syndrome (952909105) Chronic pain syndrome (G89.4) Active confirmed Problem Allergic rhinitis (45255426) Allergic rhinitis, unspecified (J30.9) Active confirmed Problem Panlobular emphysema (3552523) Panlobular emphysema (J43.1) Active confirmed Problem Chronic obstructive pulmonary disease (23015730) Chronic obstructive pulmonary disease, unspecified (J44.9) Active confirmed Problem Vaccination given (491497425) Encounter for immunization (Z23) Active confirmed Problem Migraine (28876964) Migraine without status migrainosus, not intractable, unspecified migraine type (G43.909) Active confirmed Problem Osteoporosis (38264087) Osteoporosis (M81.0) Active confirmed Problem Chronic bronchitis (95958834) Chronic bronchitis (J42) Active confirmed Problem Dyslipidemia (997994597) Dyslipidemia (E78.5) Active confirmed Problem Tobacco use (434124798) Tobacco use disorder (F17.200) Active confirmed Problem 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 Problem Allergic rhinitis (97718616) Non-seasonal allergic rhinitis, unspecified trigger (J30.89) Active confirmed Vital Signs Heart Rate 95 /min 08/14/2025 Blood pressure diastolic 68 mm Hg 08/14/2025 Height 65.50 in 08/14/2025 Blood pressure systolic 110 mm Hg 08/14/2025 Weight 107.4 lbs 08/14/2025 BMI 17.6 kg/m2 08/14/2025 Encounters Encounter Location Date Provider Diagnosis [facility] [address] [place] [id number] 10/26/2024 R Coy Duarte Chronic bronchitis J 42 ; Chronic pain syndrome G89.4 ; Cervicalgia M54.2 and Osteopenia M85.80 [facility] [address] [place] [id number] 02/08/2025 R Coy Gerald Chronic pain syndrom e G89.4 ; Cervicalgia M54.2 ; Osteopenia M85.80 ; Fatigue R53.83 ; Tobacco use disorder F17.200 and Osteoporosis M81.0 [facility] [address] [facility] [address] [place] [id number] 05/10/2025 R Coy Gerald Chronic pain syndrom e G89.4 ; Cervicalgia M54.2 ; Osteopenia M85.80 ; Fatigue R53.83 ; Tobacco use disorder F17.200 ; Osteoporosis M81.0 ; Chronic obstructive pulmonary disease, unspecified J44.9 and Dyslipidemia E78.5 [facility] [address] [facility] [address] [place] [id number] 08/14/2025 R Coy Gerald Chronic pain syndrom e G89.4 ; Cervicalgia M54.2 ; Osteopenia M85.80 ; Fatigue R53.83 ; Tobacco use disorder F17.200 ; Osteoporosis M81.0 ; Chronic obstructive pulmonary disease, unspecified J44.9 ; Dyslipidemia E78.5 and B12 deficiency E53.8 [facility] [address] [facility] [address] [place] [id number] 10/13/2024 R Coy Gerald Cervicalgia M54.2 an d Chronic pain syndrome G89.4 [facility] [address] [facility] [address] [place] [id number] 11/15/2024 R Coy Gerald Chronic pain syndrom e G89.4 and Cervicalgia M54.2 [facility] [address] [facility] [address] [place] [id number] 11/16/2024 R Coy Gerald [facility] [address] [facility] [address] [place] [id number] 12/11/2024 R Coy Gerald Chronic pain syndrom e G89.4 and Cervicalgia M54.2 [facility] [address] [facility] [address] [place] [id number] 03/19/2025 R Coy Gerald Chronic pain syndrom e G89.4 and Cervicalgia M54.2 [facility] [address] [facility] [address] [place] [id number] 04/19/2025 R Coy Gerald Chronic pain syndrom e G89.4 and Cervicalgia M54.2 [facility] [address] [place], [place] [id number] 05/17/2025 R Coy Gerald Chronic pain syndrom e G89.4 and Cervicalgia M54.2 [facility] [address] [place], [place] [id number] 05/25/2025 R Coy Gerald [facility] [address] [place], [place] [id number] 06/12/2025 R Coy Gerald [facility] [address] [place], [place] [id number] 06/20/2025 R Coy Gerald Chronic pain syndrom e G89.4 and Cervicalgia M54.2 [facility] [address] [place], [place] [id number] 07/19/2025 R Coy Gerald Chronic pain syndrom e G89.4 and Cervicalgia M54.2 [facility] [address] [place], [place] [id number] 07/26/2025 R Coy Gerald Assessments Encounter Date Diagnosis (ICD Code) Assessment Notes Treatment Notes Treatment Clinical Notes Section Notes 10/13/2024 Cervicalgia (ICD-10 - M54.2) 10/26/2024 Chronic [...] 07/19/2025 Chronic pain syndrome (ICD-10 - G89.4) 08/14/2025 Cervicalgia (ICD-10 - M54.2) 08/14/2025 Chronic pain syndrome (ICD-10 - G89.4) 08/14/2025 Osteopenia (ICD-10 - M85.80) Continue her calcium and vitamin D with plans to repeat DEXA scan in 2 years. 07/19/2025 Cervicalgia (ICD-10 - M54.2) 06/20/2025 Cervicalgia (ICD-10 - M54.2) 05/17/2025 Cervicalgia (ICD-10 - M54.2) 05/10/2025 Cervicalgia (ICD-10 - M54.2) 04/19/2025 Cervicalgia (ICD-10 - M54.2) 03/19/2025 Cervicalgia (ICD-10 - M54.2) 10/26/2024 Cervicalgia (ICD-10 - M54.2) 02/08/2025 Osteopenia (ICD-10 - M85.80) Continue her calcium and vitamin D with plans to repeat DEXA scan in 2 years. 12/11/2024 Cervicalgia (ICD-10 - M54.2) 11/15/2024 Cervicalgia (ICD-10 - M54.2) 10/13/2024 Chronic pain syndrome (ICD-10 - G89.4) 10/26/2024 Osteopenia (ICD-10 - M85.80) Continue her calcium and vitamin D with plans to repeat DEXA scan in 2 years. 02/08/2025 Fatigue (ICD-10 - R53.83) 05/10/2025 Osteopenia (ICD-10 - M85.80) Continue her calcium and vitamin D with plans to repeat DEXA scan in 2 years. 08/14/2025 Fatigue (ICD-10 - R53.83) 08/14/2025 Tobacco use disorder (ICD-10 - F17.200) 05/10/2025 Fatigue (ICD-10 - R53.83) 02/08/2025 Tobacco use disorder (ICD-10 - F17.200) 02/08/2025 Osteoporosis (ICD-10 - M81.0) 08/14/2025 Osteoporosis (ICD-10 - M81.0) 05/10/2025 Tobacco use disorder (ICD-10 - F17.200) 08/14/2025 Chronic obstructive pulmonary disease, unspecified (ICD-10 - J44.9) 05/10/2025 Osteoporosis (ICD-10 - M81.0) 05/10/2025 Chronic obstructive pulmonary disease, unspecified (ICD-10 - J44.9) 08/14/2025 Dyslipidemia (ICD-10 - E78.5) 08/14/2025 B12 deficiency (ICD-10 - E53.8) 05/10/2025 Dyslipidemia (ICD-10 - E78.5) Plan Of Treatment Pending Test Test Name Order Date Bone density 05/10/2025 CT Scan : Chest, low dose 05/10/2025 H-Lipid Panel 05/10/2025 H-CMP 05/10/2025 Next Appt Details Provider Name:Griselda Ventura, 11/15/2025 01:30:00 PM, [address] [facility], [address], [place], [place], [id number], Insurance Providers Payer Name Payer Address Payer Phone Subscriber Number Group Number Insured Name Patient Relationship to Insured Coverage Start Date Coverage End Date [facility] [id number] [place] [phone] [id number] Katt Bennett Self - patient is the insured Medications Administered Medication Instructions Date of Administration Dosage Notes allergy 04/09/2008 0.4 allergy 04/09/2008 0.4 allergy 04/11/2008 0.45 allergy 04/11/2008 0.45 allergy 04/16/2008 0.50 allergy 04/16/2008 0.50 allergy 04/19/2008 0.5 allergy 04/19/2008 0.5 allergy 04/10/2009 0.50 allergy 04/10/2009 0.50 allergy 04/15/2009 0.50 mL allergy 04/15/2009 0.5 mL allergy 07/11/2015 0.10 mL allergy 07/11/2015 0.10 mL allergy 07/29/2015 0.15 mg allergy 07/29/2015 0.15 mg allergy 08/13/2015 0.20 mL allergy 08/13/2015 0.20 mg allergy 08/20/2015 0.25 mL allergy 08/20/2015 0.25 mL allergy 08/28/2015 0.1 mL allergy 08/28/2015 0.10 mL allergy 09/25/2015 0.05 mL allergy 09/30/2015 0.10 mL allergy 09/30/2015 0.10 mL allergy 10/10/2015 0.29 mL allergy 10/10/2015 0.20 mg allergy 10/23/2015 0.30 mL allergy 10/23/2015 0.30 mL allergy 11/12/2015 0.40 mL allergy 11/12/2015 0.40 mL allergy 12/02/2015 0.50 mL allergy 12/02/2015 0.50 mL allergy 12/09/2015 0.5 mL allergy 12/09/2015 0.5 mL allergy 12/21/2015 0.10 mL allergy 12/21/2015 0.10 mL allergy 01/10/2016 0.10 mL allergy 01/10/2016 0.10 mL allergy 01/20/2016 0.15 mL allergy 01/20/2016 0.15 mL allergy 02/13/2016 .20 mL allergy 02/13/2016 .20 mL allergy 03/02/2016 0.30 mL allergy 03/02/2016 0.30 mL allergy 03/16/2016 0.35 mL allergy 03/16/2016 0.35 mL allergy 04/20/2016 .40 allergy 04/20/2016 .40 allergy 05/11/2016 0.40 mL allergy 05/11/2016 0.40 mg allergy 05/27/2016 0.40 mL allergy 05/27/2016 0.40 mL allergy 06/04/2016 0.45 mL allergy 06/04/2016 0.45 mL allergy 06/10/2016 0.05 mL allergy 06/10/2016 0.05 mL allergy 06/25/2016 0.10 mL allergy 06/25/2016 0.10 mL allergy 06/30/2016 0.15 mL allergy 06/30/2016 0.15 mL allergy 07/06/2016 0.20 mL allergy 07/06/2016 0.20 mL allergy 07/15/2016 0.25 mg allergy 07/15/2016 0.25 mL allergy 07/24/2016 0.30 mL allergy 07/24/2016 0.30 mL allergy 07/28/2016 0.35 mL allergy 07/28/2016 0.35 mL allergy 08/05/2016 0.40 mL allergy 08/05/2016 0.40 mL allergy 08/12/2016 0.45 mL allergy 08/12/2016 0.45 mL allergy 08/19/2016 0.50 mL allergy 08/19/2016 0.50 mL allergy 09/17/2016 0.10 mL allergy 09/17/2016 0.10 mL allergy 09/23/2016 0.20 mL allergy 09/23/2016 0.20 mL allergy 10/01/2016 0.30 mL allergy 10/01/2016 0.30 mL allergy 10/06/2016 0.40 mL allergy 10/06/2016 0.40 mL allergy 10/15/2016 0.50 mL allergy 10/15/2016 0.50 mL allergy 10/29/2016 0.50 mL allergy 10/29/2016 0.50 mL allergy 11/12/2016 0.50 mL allergy 11/12/2016 0.50 mL allergy 11/26/2016 0.50 mL allergy 11/26/2016 0.50 mL allergy 12/09/2016 0.50 mL allergy 12/09/2016 0.50 mL allergy 12/24/2016 0.50 mL allergy 12/24/2016 0.50 mL allergy 01/04/2017 0.50 mL allergy 01/04/2017 0.50 mL allergy 01/27/2017 0.20 mL allergy 01/27/2017 0.20 mL allergy 02/10/2017 0.35 mL allergy 02/10/2017 0.35 mL allergy 02/22/2017 0.5 mL allergy 02/22/2017 0.5 mL allergy 03/10/2017 0.50 mL allergy 03/10/2017 0.50 mL allergy 03/30/2017 0.50 mg allergy 03/30/2017 0.5 mg allergy 04/05/2017 0.50 mL allergy 04/15/2017 0.50 mL allergy 04/15/2017 0.50 mL allergy 05/12/2017 0.50 mL allergy 05/12/2017 0.50 mL allergy 05/31/2017 0.50 mL allergy 05/31/2017 0.50 mL allergy 07/05/2017 0.50 mL allergy 07/05/2017 0.50 mL allergy 07/20/2017 0.20 mL allergy 07/20/2017 0.2 mL allergy 08/06/2017 0.35 mg allergy 08/06/2017 0.35 mg allergy 09/02/2017 0.50 mL allergy 09/02/2017 0.50 mL allergy 09/24/2017 0.50 mL allergy 09/24/2017 0.50 mL allergy 10/11/2017 0.5 mL allergy 10/11/2017 0.5 mL allergy 11/02/2017 0.50 mg allergy 11/02/2017 0.50 mg allergy 11/24/2017 0.5 mL allergy 11/24/2017 0.5 mL allergy 12/14/2017 0.50 mL allergy 12/14/2017 0.50 mL allergy 12/31/2017 0.20 mL allergy 12/31/2017 0.20 mL allergy 01/13/2018 0.50 mL allergy 01/13/2018 0.50 mL allergy 02/04/2018 0.50 mL allergy 02/04/2018 0.50 mL allergy 02/23/2018 0.50 mL allergy 02/23/2018 0.50 mL allergy 03/24/2018 0.50 mL allergy 03/24/2018 0.5 mL allergy 04/08/2018 0.50 mg allergy 04/08/2018 0.50 mg allergy 05/11/2018 0.50 mL allergy 05/11/2018 0.50 mL allergy 06/03/2018 0.5 mg allergy 06/03/2018 0.5 mg allergy 2018 0.5 mL Given by MP allergy 2018 0.5 mL Given by MP allergy 07/27/2018 0.5 mg allergy 07/27/2018 0.5 mg allergy 08/17/2018 0.2 mL allergy 08/17/2018 0.2 mL allergy 09/10/2018 0.35 mg allergy 09/10/2018 0.5 mg allergy 10/07/2018 0.5 allergy 10/07/2018 0.5 mL allergy 11/10/2018 0.5 mg allergy 11/10/2018 0.5 mg allergy 12/09/2018 0.5 mg allergy 12/09/2018 0.5 mg allergy 01/05/2019 0.50 mL allergy 01/05/2019 0.50 mL allergy 02/09/2019 0.5 mL allergy 02/09/2019 0.5 mL allergy 03/02/2019 0.20 mg allergy 03/02/2019 0.20 mg allergy 04/06/2019 0.5 mL allergy 04/06/2019 0.5 mL allergy 04/14/2019 0.35 mL allergy 04/14/2019 0.35 mL allergy 04/28/2019 0.50 mL allergy 04/28/2019 0.50 mL allergy 05/10/2019 0.5 mL allergy 05/10/2019 0.5 mL allergy 07/04/2019 0.50 mg allergy 07/04/2019 0.50 mg allergy 07/13/2019 0.50 allergy 07/13/2019 0.50 allergy 07/26/2019 allergy 07/26/2019 allergy 08/24/2019 0.50 mL allergy 08/24/2019 0.50 mL allergy 09/06/2019 0.10 mg allergy 09/06/2019 0.10 mg allergy 09/11/2019 0.20 mg allergy 09/11/2019 0.20 mg allergy 09/18/2019 0.30 mg allergy 09/18/2019 0.30 mg allergy 09/26/2019 .40 allergy 09/26/2019 .40 allergy 10/03/2019 0.50 mg allergy 10/03/2019 0.50 mg allergy 10/17/2019 0.50 mg allergy 10/17/2019 0.50 mg allergy 11/17/2019 0.50 mL allergy 11/17/2019 0.50 mL allergy 12/12/2019 0.50 mg allergy 12/12/2019 0.50 mg allergy 12/26/2019 0.20 allergy 12/26/2019 0.20 allergy 01/02/2020 0.35 mg allergy 01/02/2020 0.35 mg allergy 02/09/2020 0.50 mL allergy 02/09/2020 0.50 mL allergy 03/15/2020 0.50 mg allergy 03/15/2020 0.50 mg allergy 04/02/2020 0.50 mg allergy 04/02/2020 0.50 mg allergy 05/10/2020 0.50 mL allergy 05/10/2020 0.50 mL allergy 05/23/2020 0.5 mL allergy 05/23/2020 0.5 mL allergy 07/02/2020 0.20 mL allergy 07/02/2020 0.20 mL allergy 08/08/2020 0.35 mg allergy 08/08/2020 0.35 mg allergy 10/01/2020 0.50 mg allergy 10/01/2020 0.50 mg allergy 12/03/2020 0.5 mL allergy 12/03/2020 0.5 mL allergy 12/17/2020 0.5 mg allergy 12/17/2020 0.50 mg allergy 12/30/2020 0.50 mg allergy 12/30/2020 0.50 mg allergy 02/12/2021 0.50 mL allergy 02/12/2021 0.50 mL allergy 02/27/2021 0.5 mL allergy 02/27/2021 0.5 mL allergy 03/13/2021 0.20 mL Shot given by Alicia Triplett allergy 03/13/2021 0.20 mL Given by Alicia Triplett allergy 03/26/2021 0.35 mL allergy 03/26/2021 0.35 mL allergy 04/03/2021 0.5 mL allergy 04/03/2021 0.5 mL allergy 05/07/2021 0.5 mL allergy 05/07/2021 0.5 mL allergy 06/17/2021 0.5 mL allergy 06/17/2021 0.5 mL allergy 07/07/2021 0.5 mL allergy 07/07/2021 0.5 mL allergy 09/10/2021 0.5 mL allergy 09/10/2021 0.5 mL allergy 09/10/2021 0.5 mL allergy 10/07/2021 .50 mL allergy 10/07/2021 .50 mL allergy 11/20/2021 0.50 mL allergy 11/20/2021 0.50 mL allergy 12/23/2021 0.20 mL Vial #1 0.20 M L RA allergy 12/23/2021 Vial #2 0.20 m l SQ LA allergy 01/06/2022 0.35 mL allergy 01/06/2022 0.35 mL allergy 02/06/2022 0.5 mL allergy 02/06/2022 0.5 mL allergy 03/03/2022 0.5 mL allergy 03/03/2022 0.5 mL allergy 04/07/2022 0.5 mL allergy 04/07/2022 0.5 mL allergy 05/22/2022 0.50 mL allergy 05/22/2022 0.50 mL allergy 06/16/2022 0.5 mL allergy 06/16/2022 0.5 mL allergy 08/20/2022 0.2 mL allergy 08/20/2022 0.2 mL allergy 09/04/2022 0.5 mL allergy 09/04/2022 0.5 mL allergy 10/15/2022 allergy 10/15/2022 allergy 01/07/2023 0.50 mL allergy 01/07/2023 0.50 mL allergy 01/22/2023 .50 mL Mix #2 Left ar m allergy 01/22/2023 .50 mL Mix #1 right a rm allergy 02/19/2023 0.5 mL allergy 02/19/2023 0.5 mL allergy 03/12/2023 0.5 mL allergy 03/12/2023 0.5 mL allergy 03/31/2023 0.50 mL Mix #1 in Righ t arm allergy 03/31/2023 0.50 mL Mix #2 in left arm allergy 04/08/2023 .50 mL allergy 04/08/2023 0.50 mL allergy 06/22/2023 allergy 06/22/2023 B-12 02/08/2025 1 mL B-12 08/14/2025 1 mL Depo- Medrol 40 mg/ml 02/03/2007 1.5 mL Depo- Medrol 40 mg/ml 10/30/2014 1.5 mL Depo- Medrol 40 mg/ml 05/21/2015 1.5 mL Dexamethasone 05/19/2005 1 mL Dexamethasone 05/23/2005 0.5 mL Dexamethasone 01/09/2006 1 mL Dexamethasone 01/14/2006 Dexamethasone 07/15/2012 Dexamethasone 09/07/2017 1 mL Dexamethasone 11/18/2018 1 mL phenergan 25 mg/ml 05/25/2006 25 mg Medical (General) History Medical History History ICD Code chronic neck pain-cervical spondylosis w ith c 6-7 herniation smoking COPD hyperlipidemia 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 Cevallos Declines all immunizations [...] Fang ORIF [facility] 02/21/2014 plate removed from left wrist 08/2014 hammer toe 07/15/15 nodule removed from throat-Dr Fnag 12/27 C-scope/ Allran/ adenomatous polyp 2019 Cataract Surgery - Right Eye 07/2023 C-scope/ Allran 2023 Sinus surgery/ Dr. Tilley 12/2024 Hospitalization History Reason Date(Month/Year) [facility] ER-broken right and left wrist 03/03
== END 2025-09-07 23:59 | disposition home or self-care (01) ==
LOC: RAD 14:50
PROVIDERS: PCP Family Medicine; Visit Provider Family Medicine
DX: Z12.2 Encounter for screening for malignant neoplasm of respiratory organs (principal); Z87.891 Personal history of nicotine dependence; J43.9 Emphysema, unspecified; J98.4 Other disorders of lung
CPT/HCPCS: 71271